=== PATIENT | female | born 1940 | race Caucasian/White ===

== ENCOUNTER 2023-04-24 21:16 | Emergency (ER) | payer BC, OTHER ==
[2023-04-24] MEDS ORDERED: LACTULOSE 20 GM/30 ML UCUP ONE (22:10)
[2023-04-24 22:13] LABS: Absolute Lymphocytes (CBC) 1.6 K/uL (0.7-4.9); Hematocrit 37.9 % (36.0-45.0); Lymphocytes % 19.6 % (15.3-44.8); MCV 98.5 fL (80-100); MPV 7.4 fL (7.6-11.3); Platelets 221 thou/uL (152-406); RBC Red Blood Cell Count 3.85 M/uL (3.86-4.86)
[2023-04-24 22:29] LABS: Albumin 3.3 g/dL (3.4-5.0); Bilirubin Total 0.5 mg/dL (0.2-1.0); Protein, Total 7.9 g/dL (6.4-8.2)
--- NOTE | 2023-04-25 00:31 | ER ---
Nurse's Notes [facility] Name: Kori Saenz Age: 83 yrs Sex: Female : 1940 Arrival Date: 04/24/2023 Time: 21:16 Bed 6 Private MD: Diagnosis: Constipation, unspecified;Diverticulitis of large intestine without perforation or abscess without bleeding;Solitary pulmonary nodule Presentation: 04/24 21:44 Chief complaint: Patient states: has been constipated, small stools since February , iw daughter states she took some ex-lax and it did not help. Coronavirus screen: At this time, the client does not indicate any symptoms associated with coronavirus-19. Ebola Screen: Patient negative for fever greater than or equal to 101.5 degrees Fahrenheit, and additional compatible Ebola Virus Disease symptoms Patient denies exposure to infectious person. Patient denies travel to an Ebola-affected area in the 21 days before illness onset. No symptoms or risks identified at this time. Initial Sepsis Screen: Does the patient meet any 2 criteria? No. Patient's initial sepsis screen is negative. Does the patient have a suspected source of infection? No. Patient's initial sepsis screen is negative. Risk Assessment: Do you want to hurt yourself or someone else? Patient reports no desire to harm self or others. 21:44 Acuity: DARION 3 iw 21:44 Method Of Arrival: Wheelchair iw Historical: - Allergies: 21:47 No Known Allergies; iw - Social history:: Smoking status: . Screenin:04 [facility] ED Fall Risk Assessment (Adult) History of falling in the last 3 months, lg3 including since admission No falls in past 3 months (0 pts). Abuse screen: Denies threats or abuse. Denies injuries from another. Nutritional screening: No deficits noted. Tuberculosis screening: No symptoms or risk factors identified. Assessment: 22:04 General: Appears in no apparent distress. comfortable, Behavior is calm, cooperative. lg3 Pain: Complains of pain in abdomen Pain currently is 1 out of 10 on a pain scale. Quality of pain is described as pressure. Neuro: No deficits noted. Nascimento Agitation-Sedation Scale (RASS): 0 - Alert and Calm Level of Consciousness is awake, alert, obeys commands, Oriented to person, place, time, situation. Cardiovascular: No deficits noted. Denies chest pain, shortness of breath, Capillary refill < 3 seconds Clubbing of nail beds is absent JVD is absent Patient's skin is warm and dry. Respiratory: No deficits noted. Airway is patent Respiratory effort is even, unlabored, Respiratory pattern is regular, symmetrical. GI: No deficits noted. Abdomen is flat, non-distended, Bowel sounds present X 4 quads. Abd is soft and non tender X 4 quads. Reports constipation. : No deficits noted. No signs and/or symptoms were reported regarding the genitourinary system. EENT: No deficits noted. No signs and/or symptoms were reported regarding the EENT system. Derm: No deficits noted. No signs and/or symptoms reported regarding the dermatologic system. Skin is intact, is healthy with good turgor, Skin is dry, Skin is normal, Skin temperature is warm. Musculoskeletal: No deficits noted. No signs and/or symptoms reported regarding the musculoskeletal system. Circulation, motion, and sensation intact. Range of motion: intact in all extremities. 22:53 Reassessment: Patient appears in no apparent distress at this time. No changes from lg3 previously documented assessment. Patient and/or family updated on plan of care and expected duration. Pain level reassessed. Patient is alert, oriented x 3, equal unlabored respirations, skin warm/dry/pink. pt currently in restroom. Vital Signs: 21:44 BP 140 / 66; Pulse 79; Resp 16; Temp 98.4; Pulse Ox 97% ; iw 22:54 BP 132 / 68; Pulse 81; Resp 17 S; Pulse Ox 98% on R/A; lg3 ED Course: 21:20 Patient arrived in ED. kj1 21:24 Freddy Jurado MD is Attending Physician. rt 21:45 Triage completed. iw 21:48 Arm band placed on. iw 21:55 Julissa Jane, DAVID is Primary Nurse. lg3 22:03 Magnesium Sent. lg3 22:03 CBC with Diff Sent. lg3 22:03 CMP Sent. lg3 22:03 Lipase Sent. lg3 22:04 Patient has correct armband on for positive identification. Placed in gown. Bed in low lg3 position. Call light in reach. Side rails up X 1. Client placed on continuous cardiac and pulse oximetry monitoring. NIBP monitoring applied. Door closed. Noise minimized. Warm blanket given. Family accompanied patient. 22:04 Patient maintains SpO2 saturation greater than 95% on room air. lg3 22:06 Inserted saline lock: 20 gauge in right antecubital area, using aseptic technique. bc6 Blood collected. 23:35 CT Abd/Pelvis - IV Contrast Only In Process Unspecified. EDMS 04/25 00:30 Raman Mcqueen MD is Referral Physician. rt 01:17 No provider procedures requiring assistance completed. km8 01:17 IV discontinued, intact, bleeding controlled, No redness/swelling at site. Pressure km8 dressing applied. 01:18 Provided Education on: d/c teaching. km8 Administered Medications: 04/24 22:03 Drug: Lactulose PO 30 grams 45 ml PO once Volume: 45 ml; Route: PO; lg3 04/25 01:17 Follow up: Response: No adverse reaction km8 Medication: 01:17 VIS not applicable for this client. km8 Outcome: 00:31 Discharge ordered by MD. rt 01:17 Discharged to home ambulatory, with family, km8 01:17 Condition: good 01:17 Discharge instructions given to patient, family, Instructed on discharge instructions, follow up and referral plans. medication usage, Demonstrated understanding of instructions, follow-up care, medications, Prescriptions given X 2, 01:18 Patient left the ED. km8 Signatures: Dispatcher [employer] EDMS Poly Lee, DAVID RN Mare Valero kj1 Julissa Jane RN RN lg3 Freddy Jurado MD MD rt Claire Dan bc6 Jessica Bolden RN RN km8 Corrections: (The following items were deleted from the chart) 04/24 21:45 21:44 Pulse 79bpm; Resp 16bpm; Pulse Ox 97%; Temp 98.4F; iw jewell
--- NOTE | 2023-04-25 00:31 | EDPHYS ---
Physician Documentation [facility] Name: Kori Saenz Age: 83 yrs Sex: Female : 1940 Arrival Date: 04/24/2023 Time: 21:16 Bed 6 Private MD: ED Physician Freddy Jurado HPI: 04/25 02:30 This 83 yrs old Female presents to ER via Wheelchair with complaints of Constipation. rt 02:30 Patient presents to the ED with constipation for the past several days. Reports mild rt abdominal discomfort. Patient recently moved here from [place]. Has been trying Ex-Lax and 1 stool softener per day to no relief. Denies other acute complaints at this time, symptoms are moderate in severity, no other aggravating alleviating factors.. Historical: - Allergies: 04/24 21:47 No Known Allergies; iw - Social history:: Smoking status: . ROS: 04/25 02:30 Constitutional: Negative for fever, chills, and weight loss, Cardiovascular: Negative rt for chest pain, palpitations, and edema, Respiratory: Negative for shortness of breath, cough, wheezing, and pleuritic chest pain, MS/Extremity: Negative for injury and deformity, Skin: Negative for injury, rash, and discoloration, Neuro: Negative for headache, weakness, numbness, tingling, and seizure, Psych: Negative for depression, anxiety, suicide ideation, homicidal ideation, and hallucinations, Abdomen/GI: Positive for abdominal pain, constipation, Negative for nausea and vomiting, Exam: 02:30 Constitutional: This is a well developed, well nourished patient who is awake, alert, rt and in no acute distress. Head/Face: Normocephalic, atraumatic. Chest/axilla: Normal chest wall appearance and motion. Nontender with no deformity. No lesions are appreciated. Cardiovascular: Regular rate and rhythm with a normal S1 and S2. No gallops, murmurs, or rubs. Normal PMI, no JVD. No pulse deficits. Respiratory: Lungs have equal breath sounds bilaterally, clear to auscultation and percussion. No rales, rhonchi or wheezes noted. No increased work of breathing, no retractions or nasal flaring. Skin: Warm, dry with normal turgor. Normal color with no rashes, no lesions, and no evidence of cellulitis. MS/ Extremity: Pulses equal, no cyanosis. Neurovascular intact. Full, normal range of motion. Neuro: Awake and alert, GCS 15, oriented to person, place, time, and situation. Cranial nerves II-XII grossly intact. Motor strength 5/5 in all extremities. Sensory grossly intact. Cerebellar exam normal. Normal gait. Psych: Awake, alert, with orientation to person, place and time. Behavior, mood, and affect are within normal limits. 02:30 Abdomen/GI: Mild tenderness diffusely without rebound, guarding, distention, Vital Signs: 04/24 21:44 BP 140 / 66; Pulse 79; Resp 16; Temp 98.4; Pulse Ox 97% ; iw 22:54 BP 132 / 68; Pulse 81; Resp 17 S; Pulse Ox 98% on R/A; lg3 MDM: 21:48 Patient medically screened. rt 04/25 02:30 Differential Diagnosis Bowel obstruction, constipation, electrolyte disturbance. Data rt reviewed: vital signs, nurses notes, lab test result(s), radiologic studies. Consideration of Admission/Observation Escalation of care including admission/observation considered. Patient is having a bowel movement after lactulose in the ED, has signs consistent with diverticulitis on imaging, however, there is no signs of complication such as SIRS criteria or abscess formation. Believe this is amenable to a trial of outpatient management she does not require admission at this time. I did inform the patient of findings of compression fracture, believe that this explains her current back pain for some time. This is not an acute finding. The patient was also informed of finding of pulmonary nodule, she states that she will follow-up with pulmonary for further evaluation as an outpatient.. I considered the following discharge prescriptions or medication management in the emergency department Medications were administered in the Emergency Department. See MAR. Independent interpretation of the following test(s) in the Emergency Department CT Scan: My interpretation is No bowel obstruction syndrome interpretation of CT scan images. Counseling: I had a detailed discussion with the patient and/or guardian regarding the historical points, exam findings, and any diagnostic results supporting the discharge/admit diagnosis, lab results, radiology results, the need for outpatient follow up, to return to the emergency department if symptoms worsen or persist or if there are any questions or concerns that arise at home. Response to treatment: the patient's symptoms have markedly improved after treatment. 04/24 21:49 Order name: CBC with Diff; Complete Time: 22:48 rt 04/24 21:49 Order name: CMP; Complete Time: 22:48 rt 04/24 21:49 Order name: Lipase; Complete Time: 22:48 rt 04/24 21:49 Order name: Magnesium; Complete Time: 22:48 rt 04/24 21:49 Order name: CT Abd/Pelvis - IV Contrast Only rt 04/24 21:49 Order name: IV Saline Lock; Complete Time: 22:03 rt 04/24 21:49 Order name: Labs collected and sent; Complete Time: 22:03 rt Administered Medications: 04/24 22:03 Drug: Lactulose PO 30 grams 45 ml PO once Volume: 45 ml; Route: PO; lg3 04/25 01:17 Follow up: Response: No adverse reaction km8 Disposition Summary: 04/25/23 00:31 Discharge Ordered Notes: Location: Home rt Problem: new rt Symptoms: have improved rt Condition: Stable rt Diagnosis - Constipation, unspecified rt - Diverticulitis of large intestine without perforation or abscess without bleeding rt - Solitary pulmonary nodule rt Followup: rt - With: Raman Mcqueen MD - When: 5 - 6 days - Reason: Discharge Instructions: - Discharge Summary Sheet rt - Constipation, Adult rt - Diverticulitis rt - Pulmonary Nodule rt Forms: - Medication Reconciliation Form rt - Thank You Letter rt - Antibiotic Education rt - Prescription Opioid Use rt - Patient Portal Instructions rt - Leadership Thank You Letter rt Signatures: Dispatcher [employer] Poly Ferrer, Julissa Colon RN, RN RN [email or web address] Freddy Jurado MD MD rt Jessica Bolden RN km8
[2023-04-25 01:39] VITALS: TEMP 98.4
[2023-04-25 01:45] VITALS: BP 132/68; O2SAT 98
--- NOTE | 2023-04-26 18:06 | RAD REPORT ---
EXAM DESCRIPTION: CT - Abdomen Pelvis W Contrast - 04/25/2023 6:28 am CLINICAL HISTORY: CONSTIPATION COMPARISON: None Available. TECHNIQUE: CT of the abdomen and pelvis performed following the administration of IV contrast. No or al contrast. This exam was performed according to our departmental dose-optimization program, which i ncludes automated exposure control, adjustment of the mA and/or kV according to patient size and/or u se of iterative reconstruction technique. FINDINGS: Lung Bases: Artifact from cardiac pacing lead. Basilar opacities, most pronounced in the r ight middle lobe, probably representing combination of atelectasis and scarring. There is a nodular o pacity in the left lower lobe measuring 0.9 cm. Abdomen: Liver: The liver has normal contour and density. No suspicious mass. Gallbladder: Cholelithiasis. No significant biliary dilatation. Spleen, Pancreas, and Adrenal Glands: The spleen, pancreas, and adrenal glands are unremarkable. Kidneys: Focal scarring in the interpolar right kidney. Cortical calcification just inferiorly. No suspicious mass identified. No obstructing calculus. No hydronephrosis. Vasculature: The aorta and IVC have normal caliber and position. No aortic dissection. IVC filter i s noted. Stomach: Tiny hiatal hernia. Other: No free intraperitoneal air. No free fluid or lymphadenopathy. Pelvis: Bladder: Underdistended. Bowel: No bowel obstruction. Colon diverticulosis. There is focal short segment wall thickening wit h mild adjacent fat stranding in the sigmoid colon, probably due to acute diverticulitis. Large amoun t of stool in the proximal colon. Appendix: Normal appendix. Pelvis: Status post hysterectomy. No adnexal mass. Bones: Compression fracture at T12 with nearly 90% vertebral body height loss at its midportion may b e chronic, however cannot exclude acute component. There is underlying sclerosis. No other suspicious bone lesion. IMPRESSION: 1. Findings compatible with acute diverticulitis of the sigmoid colon. Cannot exclude un derlying pathology. Recommend continued follow-up. There is large amount of stool in the proximal col on. 2. Compression fracture at T12 may be chronic, however acute component is not excluded. Correlate for any acute pain in this region. 3. Cholelithiasis. 4. Left lower lobe nodular opacity measuring 0.9 cm. Per Fleischner Society Guidelines, recommend p rompt non-contrast Chest CT for further evaluation. These guidelines do not apply to immunocompromised patients and patients with cancer. Follow up in pa tients with significant comorbidities as clinically warranted. For lung cancer screening, adhere to L lucy-RADS guidelines. Reference: Radiology. 2017; 284(1):228-43. Electronically signed by: Isa Hoffmann MD 04/24/2023 11:48 PM CDT Due to temporary technical issues with the PACS/Fluency reporting system, reports are being signed by the in house radiologists without review as a courtesy to insure prompt reporting. The interpreting radiologist is fully responsible for the content of the report.
== END 2023-04-25 01:18 | disposition home or self-care (01) ==
LOC: ER 21:16
DX: K59.00 Constipation, unspecified (principal); K57.32 Diverticulitis of large intestine without perforation or abscess without bleeding; R91.1 Solitary pulmonary nodule
CPT/HCPCS: 85025; 36415; 83735; 83690; 80053; 74177; 99284; Q9967

== ENCOUNTER → 2023-07-03 | Emergency (ER) | payer BC ==
[~2023-07-03] MED LIST: NA CHLORIDE 0.9% 250 ML ONE; NA CHLORIDE 0.9% 500 ML ONE; PANTOPRAZOLE 40 MG INJ ONE
--- NOTE | 2023-07-03 17:08 | RAD REPORT ---
EXAM DESCRIPTION: RAD - Chest Single View - 07/03/2023 5:04 pm CLINICAL HISTORY: COUGH Chest pain. COMPARISON: No comparisons FINDINGS: Portable technique limits examination quality. Mild to moderate bilateral pulmonary opacities may represent pneumonia or pulmonary edema. The heart is moderately enlarged. No displaced fractures.Dual lead pacer device. IMPRESSION: [id number] pneumonia versus CHF pattern.
[2023-07-03 18:02] LABS: SARS-CoV-2 Antigen Rapid Res Negative (Negative)
[2023-07-03 18:02] LABS: Absolute Lymphocytes (CBC) 1.7 K/uL (0.7-4.9); Hematocrit 25.4 % (36.0-45.0); Lymphocytes % 27.9 % (15.3-44.8); MCV 96.6 fL (80-100); MPV 7.9 fL (7.6-11.3); Platelets 251 thou/uL (152-406); RBC Red Blood Cell Count 2.63 M/uL (3.86-4.86)
[2023-07-03 18:18] LABS: Troponin High Sensitivity 23.5 pg/mL (<58.9)
[2023-07-03 18:19] LABS: Specific Gravity 1.025 (1.005-1.030); Urine Bacteria None Seen /HPF (<20); Urine Bilirubin NEGATIVE (Negative); Urine Blood Negative (Negative); Urine Clarity Clear (Clear); Urine Color Yellow (Yellow); Urine Glucose NEGATIVE (Negative); Urine Mucus Slight /HPF (None Seen); Urine Protein TRACE (Negative); Urine RBC <5 /HPF (None Seen); Urine Urobilinogen Normal (Normal); Urine pH 5.5 (5.0-7.0)
[2023-07-03 18:58] LABS: Albumin 2.7 g/dL (3.4-5.0); Bilirubin Total 0.4 mg/dL (0.2-1.0); Potassium 4.5 mEq/L (3.5-5.1); Protein, Total 6.4 g/dL (6.4-8.2)
--- NOTE | 2023-07-03 19:00 | ER ---
Nurse's Notes [facility] Name: Kori Saenz Age: 83 yrs Sex: Female : 1940 Arrival Date: 07/03/2023 Time: 16:21 Bed 14 Private MD: Diagnosis: GI Bleed/ Gastrointestinal hemorrhage, unspecified;Heart failure, unspecified Presentation: 07/03 16:37 Chief complaint: Patient states: sob, congestion, fatigue and black stool x 2 weeks. nv1 Coronavirus screen: Vaccine status: Patient reports receiving the 2nd dose of the covid vaccine. Ebola Screen: No symptoms or risks identified at this time. Onset of symptoms is unknown. 16:37 Method [facility] Arrival: [facility] [place] [place] 16:37 Acuity: DARION 3 nv1 21:31 Initial Sepsis Screen: Does the patient meet any 2 criteria? HR > 90 bpm. Does the nv1 patient have a suspected source of infection? No. Patient's initial sepsis screen is negative. Risk Assessment: Do you want to hurt yourself or someone else? Patient reports no desire to harm self or others. Triage Assessment: 16:40 General: Appears uncomfortable, ill, well groomed, well developed, well nourished, me1 Behavior is calm, cooperative, appropriate for age. Pain: Denies pain. Neuro: Level of Consciousness is awake, alert, obeys commands, Oriented to person, place, time, situation, Appropriate for age Reports weakness in generalized. Cardiovascular: Capillary refill < 3 seconds Patient's skin is warm and dry. Respiratory: Reports shortness of breath cough that is non-productive, Airway is patent Respiratory effort is even, unlabored, Respiratory pattern is regular, symmetrical. GI: Reports black stool. Historical: - Allergies: 16:40 No Known Allergies; me1 - PMHx: 16:40 Anemia; Diverticulitis; Chronic obstructive lung disease; me1 - Immunization history:: Adult Immunizations. - Social history:: Smoking status: Patient/guardian denies using tobacco, but has a distant history of tobacco abuse. Screenin:30 [facility] ED Fall Risk Assessment (Adult) History of falling in the last 3 months, me1 including since admission No falls in past 3 months (0 pts) Confusion or Disorientation No (0 pts) Intoxicated or Sedated No (0 pts) Impaired Gait Yes (1 pt) Mobility Assist Device Used Yes (1 pt) Altered Elimination No (0 pt) Score/Fall Risk Level 0 - 2 = Low Risk Maintained a safe environment, Provided non-skid footwear, Hourly rounding (assess needs \T\ fall precautionary measures) done, Used ambulatory aids as needed (educated on \T\ assisted with). Abuse screen: Denies threats or abuse. Nutritional screening: No deficits noted. Tuberculosis screening: No symptoms or risk factors identified. Assessment: 16:30 General: See triage assessment. . me1 Vital Signs: 16:30 BP 121 / 81; Pulse 112; Resp 20; Pulse Ox 95% on R/A; me1 16:37 BP 111 / 86; Pulse 98; Resp 18; Temp 98.4(O); Pulse Ox 98% on R/A; Weight 63.5 kg; me1 Height 5 ft. 6 in. ; 17:00 BP 112 / 72; Pulse 109; Resp 18; Pulse Ox 98% on R/A; me1 18:00 BP 120 / 59; Pulse 113; Resp 18; Pulse Ox 97% on R/A; me1 19:00 BP 132 / 90; Pulse 109; Resp 21; Pulse Ox 97% on R/A; me1 20:00 BP 132 / 77; Pulse 112; Resp 24; Pulse Ox 99% on R/A; me1 20:30 BP 138 / 89; Pulse 109; Resp 21; Pulse Ox 97% on R/A; me1 21:00 BP 130 / 93; Pulse 112; Resp 22; Pulse Ox 99% on R/A; me1 21:30 BP 123 / 84; Pulse 112; Resp 24; Pulse Ox 98% on R/A; me1 16:37 Body Mass Index 22.60 (63.50 kg, 167.64 cm) nv1 ED Course: 16:25 Patient arrived in ED. mg5 16:29 Micaela Parra, RN is Primary Nurse. me1 16:30 Patient has correct armband on for positive identification. Bed in low position. [facility] light in reach. Side rails up X 1. Provided Education on: POC. Verbalized understanding. . 16:30 No provider procedures requiring assistance completed. me1 16:33 Aubrey Ames MD is Attending Physician. ec2 16:40 Triage completed. me1 16:43 Arm band placed on Patient placed in waiting room. me1 17:05 XRAY Chest (1 view) In Process Unspecified. EDMS 17:14 COVID swab sent to lab. Flu and/or RSV swab sent to lab. mb4 17:14 Influenza Screen (a \T\ B) Sent. mb4 17:14 SARS RAPID Sent. mb4 17:46 CBC with Diff Sent. me1 17:46 NT PRO-BNP Sent. me1 17:46 Troponin HS Sent. me1 17:47 UAM Sent. me1 17:47 Inserted saline lock: 22 gauge in right antecubital area, using aseptic technique. me1 18:35 Urine Culture Sent. me1 18:35 CMP Sent. me1 19:06 Initiated transfer with Enio at [facility]. rv1 19:07 Attending Physician role handed off by Aubrey Ames MD rt 19:07 Freddy Jurado MD is Attending Physician. rt 20:[address] Land [address] [facility] Rm [id number]. rv1 20:31 Ptt, Activated Sent. me1 20:31 PT-INR Sent. me1 20:31 Lactate w/ 2H reflex if indic. Sent. me1 21:31 Patient transferred, IV remains in place. me1 Administered Medications: 19:01 Drug: Pantoprazole IVP 80 mg IVP once Route: IVP; Site: right antecubital; me1 19:02 Follow up: Response: No adverse reaction me1 19:01 Drug: Pantoprazole IV 8 mg/hr IV at 25 ml/hr continuous; (Standard dilution is 80 mg in me1 250 mL NS) Route: IV; Rate: 25 ml/hr; Site: right antecubital; 19:02 Follow up: Response: No adverse reaction me1 20:31 Drug: NS 0.9% IV 500 ml IV at bolus once Route: IV; Rate: bolus; Site: right me1 antecubital; 21:36 Follow up: IV Status: Completed infusion; IV Intake: 500ml me1 Medication: 16:30 VIS not applicable for this client. me1 Intake: 21:36 IV: 500ml; Total: 500ml. me1 Outcome: 19:00 ER care complete, transfer ordered by . ec2 21:31 Transferred by ground EMS to [facility], Transfer form completed. me1 Note: Report given to DAVID Pickens 21:31 Condition: stable 21:31 Instructed on the need for transfer, 22:04 Patient left the ED. me1 Signatures: Dispatcher [employer] Jenny Felipe mb4 Freddy Jurado MD MD rt Elly Bailey rv1 Micaela Parra RN RN me1 Miriam Woods mg5 Aubrey Ames MD MD ec2 Corrections: (The following items were deleted from the chart) 20:32 20:32 General: See triage assessment. . me1 me1
--- NOTE | 2023-07-03 19:00 | EDPHYS ---
Physician Documentation [facility] Name: Kori Saenz Age: 83 yrs Sex: Female : 1940 Arrival Date: 07/03/2023 Time: 16:21 Bed 14 Private MD: ED Physician Freddy Jurado HPI: 07/03 16:56 This 83 yrs old Female presents to ER via Ambulatory with complaints of ec2 Weakness, Cough, Breathing Difficulty. 16:56 Patient arrives today due to concern for cough and cold symptoms as well as generalized ec2 weakness. Patient reports that she has been having symptoms for several weeks, states she has been feeling generally weak and no longer wanted to get out of bed. Denies any fevers or chills, denies vomiting or diarrhea. Reports no abdominal pain. Reports no chest pain. Reports that she is also having some coughing which is causing her difficulty breathing. Reports history of COPD.. Historical: - Allergies: 16:40 No Known Allergies; me1 - PMHx: 16:40 Anemia; Diverticulitis; Chronic obstructive lung disease; me1 - Immunization history:: Adult Immunizations. - Social history:: Smoking status: Patient/guardian denies using tobacco, but has a distant history of tobacco abuse. ROS: 16:56 Constitutional: as per hpi ec2 Exam: 16:56 Constitutional: GEN: NAD Head: atraumatic Eyes: EOMI Ears: External ears are ec2 normal. CV: regular rate LUNGS: no respiratory distress, no wheezes, no rales, no rhonchi ABD: non-distended SKIN: no evidence of rashes MSK: no evidence of trauma NEURO: moves all extremities equally Vital Signs: 16:30 BP 121 / 81; Pulse 112; Resp 20; Pulse Ox 95% on R/A; me1 16:37 BP 111 / 86; Pulse 98; Resp 18; Temp 98.4(O); Pulse Ox 98% on R/A; Weight 63.5 kg; me1 Height 5 ft. 6 in. ; 17:00 BP 112 / 72; Pulse 109; Resp 18; Pulse Ox 98% on R/A; me1 18:00 BP 120 / 59; Pulse 113; Resp 18; Pulse Ox 97% on R/A; me1 19:00 BP 132 / 90; Pulse 109; Resp 21; Pulse Ox 97% on R/A; me1 20:00 BP 132 / 77; Pulse 112; Resp 24; Pulse Ox 99% on R/A; me1 20:30 BP 138 / 89; Pulse 109; Resp 21; Pulse Ox 97% on R/A; me1 21:00 BP 130 / 93; Pulse 112; Resp 22; Pulse Ox 99% on R/A; me1 21:30 BP 123 / 84; Pulse 112; Resp 24; Pulse Ox 98% on R/A; me1 16:37 Body Mass Index 22.60 (63.50 kg, 167.64 cm) ne1 MDM: 16:54 Patient medically screened. ec2 16:56 Data reviewed: vital signs. ED course: Patient arrives today due to concern for cough ec2 and cold symptoms. Examination remarkable for well-appearing nontoxic individual is otherwise in no acute distress. Will obtain lab work, EKG, chest x-ray as well as viral swabs. Considering viral infection, pneumonia, anemia, electrolyte disturbances, arrhythmia.. 18:21 ED course: EKG independently reviewed and interpreted by me, shows atrial fibrillation, ec2 rate 105, no acute ST segment elevations, nonconcerning intervals.. 18:32 ED course: CBC shows slight anemia with hemoglobin of 8.4, BNP elevation at 1500. Urine ec2 is questionably infectious however patient without overt urinary complaints or defer antibiotic therapy for this. Troponin is within normal ranges at 23.5. Chest x-ray shows bilateral patchy opacities as well as cardiomegaly, favor volume overload given the BNP as well as the history. Negative for flu and COVID. . 18:35 ED course: Hemoglobin is down 3 points from compared to previous visit. Further ec2 discussion with patient, patient has been having black stools. Will transfer to [facility].. 18:59 ED course: Digital rectal examination shows no gross melena, no hematochezia, multiple ec2 hemorrhoids present.. 20:14 Consideration of Admission/Observation Patient car transfer for higher level of care. rt Management of patient was discussed with the following: Hospitalist: Discussed with accepting hospitalist. I considered the following discharge prescriptions or medication management in the emergency department Medications were administered in the Emergency Department. See MAR. Counseling: I had a detailed discussion with the patient and/or guardian regarding the historical points, exam findings, and any diagnostic results supporting the discharge/admit diagnosis, lab results, the need to transfer to another facility. 07/03 16:55 Order name: CBC with Diff; Complete Time: 18:31 ec2 07/03 16:55 Order name: NT PRO-BNP; Complete Time: 18:31 ec2 07/03 16:55 Order name: Troponin HS; Complete Time: 18:31 ec2 07/03 16:55 Order name: SARS RAPID; Complete Time: 18:31 ec2 07/03 16:55 Order name: Influenza Screen (a \T\ B); Complete Time: 18:31 ec2 07/03 16:55 Order name: UAM; Complete Time: 18:31 ec2 07/03 18:23 Order name: Urine Culture EDMS 07/03 18:31 Order name: CMP; Complete Time: 18:58 ec2 07/03 19:57 Order name: Lactate w/ 2H reflex if indic. rt 07/03 19:58 Order name: PT-INR rt 07/03 19:58 Order name: Ptt, Activated rt 07/03 16:55 Order name: XRAY Chest (1 view); Complete Time: 18:31 ec2 07/03 16:55 Order name: EKG; Complete Time: 16:55 ec2 07/03 16:55 Order name: Cardiac monitoring; Complete Time: 19:40 ec2 07/03 16:55 Order name: EKG - Nurse/Tech; Complete Time: 19:40 ec2 07/03 16:55 Order name: IV Saline Lock; Complete Time: 17:46 ec2 07/03 16:55 Order name: Labs collected and sent; Complete Time: 17:46 ec2 07/03 16:55 Order name: O2 Per Protocol; Complete Time: 17:46 ec2 07/03 16:55 Order name: O2 Sat Monitoring; Complete Time: 17:46 ec2 Administered Medications: 19:01 Drug: Pantoprazole IVP 80 mg IVP once Route: IVP; Site: right antecubital; ne1 19:02 Follow up: Response: No adverse reaction me1 19:01 Drug: Pantoprazole IV 8 mg/hr IV at 25 ml/hr continuous; (Standard dilution is 80 mg in [facility] [place] mL NS) Route: IV; Rate: 25 ml/hr; Site: right antecubital; 19:02 Follow up: Response: No adverse reaction me1 20:31 Drug: NS 0.9% IV 500 ml IV at bolus once Route: IV; Rate: bolus; Site: right me1 antecubital; 21:36 Follow up: IV Status: Completed infusion; IV Intake: 500ml me1 Disposition Summary: 07/03/23 19:00 Transfer Ordered Notes: Transfer Location: Other Acute Care Facility ec2 Reason: Higher level of care ec2 Condition: Stable ec2 Problem: new ec2 Symptoms: are unchanged ec2 Accepting Physician: transferring doc(07/03/23 22:04) me1 Diagnosis - GI Bleed/ Gastrointestinal hemorrhage, unspecified ec2 - Heart failure, unspecified ec2 Forms: - Medication Reconciliation Form ec2 - SBAR form ec2 Signatures: Dispatcher [employer] Freddy Sousa MD MD rt Micaela Parra RN RN me1 Aubrey Ames MD MD ec2 Corrections: (The following items were deleted from the chart) 19:00 19:00 transferring doc ec2 ec2 22:04 19:00 transferring doc ec2 me1
[2023-07-03 20:50] LABS: Protime INR 1.24
[2023-07-04 01:28] VITALS: TEMP 98.4
[2023-07-04 01:38] VITALS: BP 123/84
[2023-07-04 01:39] VITALS: O2SAT 98
--- NOTE | 2023-07-05 12:25 | EKG ---
Test Date: 2023-07-03 Test Time: 18:15:37 Technical Project Manager: MARY MEASUREMENT RESULTS: Intervals: Rate: 105 DE: QRSD: 128 QT: 354 QTc: 467 [place]: P: DE: QRS: 10 T: 231 INTERPRETIVE STATEMENTS: Atrial fibrillation with rapid ventricular response with premature ventricular or aberrantly conducted complexes Nonspecific intraventricular block T wave abnormality, consider inferior ischemia Abnormal ECG No previous ECG available for comparison Electronically Signed On 07-05-23 12:20:34 [employer] ENGINE [employer]SEMBLER by Nahum Loera
== END ==
LOC: ER 16:21
DX: K92.2 Gastrointestinal hemorrhage, unspecified (principal); I50.9 Heart failure, unspecified; J44.9 Chronic obstructive pulmonary disease, unspecified; Z11.52 Encounter for screening for COVID-19
CPT/HCPCS: 36415; 71045; 80053; 81001; 83605; 83880; 84484; 85025; 85610; 85730; 87086; 87088; 87804; 87811; 93005; 96361; 96374; 99285; C9113; J7040; J7050

== ENCOUNTER 2023-09-02 12:59 | Inpatient (IN) | payer BC ==
[2023-09-02 13:30] LABS: Absolute Basophils 0.1 K/uL (0-0.5); Absolute Eosinophils 0.1 K/uL (0-0.5); Absolute Lymphocytes (CBC) 1.5 K/uL (0.7-4.9); Absolute Monocytes 0.7 K/uL (0.1-1.3); Absolute Neutrophil 4.1 K/uL (1.8-8.0); Basophils % 1.1 % (0-1.3); Eosinophils % 1.1 % (0-4.4); Hematocrit 28.7 % (36.0-45.0); Hemoglobin 9.4 g/dL (12.0-15.0); Lymphocytes % 22.8 % (15.3-44.8); MCH 30.6 pg (27.0-35.0); MCHC 32.6 g/dL (32.0-36.0); MCV 93.8 fL (80-100); MPV 9.5 fL (7.6-11.3); Monocytes % 10.7 % (3.3-12.3); Neutrophils % 64.3 % (41.7-73.7); Nucleated Red Blood Cells % 0.2 % (0-0); Platelets 172 thou/uL (152-406); RBC Red Blood Cell Count 3.06 M/uL (3.86-4.86); Red Cell Distribution Width 17.7 % (12.1-15.2)
[2023-09-02 13:47] LABS: Anion Gap 6.8 mEq/L (5.0-15.0); Magnesium 1.5 mg/dL (1.6-2.4); Potassium 3.8 mEq/L (3.5-5.1); Troponin High Sensitivity 39.3 pg/mL (<58.9)
--- NOTE | 2023-09-02 14:45 | RAD REPORT ---
[facility] CLINICAL HISTORY: shortness of breath COMPARISON: Chest Single View dated 08/29/2023; Chest Single View dated 07/03/2023 TECHNIQUE: Portable AP view of the chest. FINDINGS: Progressive central interstitial and fluffy airspace opacities. Retrocardiac opacity is al so progressive, and may reflect a component of effusion. . No pneumothorax. Stable blunting of the r ight costophrenic angle which may reflect pleural thickening or trace effusion. The cardiomediastinal contours are unremarkable. IMPRESSION: Progressive central interstitial and airspace fluffy opacities, may reflect pulmonary ed lobo or multifocal pneumonia.
[2023-09-02] MEDS ORDERED: FUROSEMIDE 40 MG/4 ML VIAL ONE (14:59)
[2023-09-02] MEDS ORDERED: METOPROLOL TARTRATE 5 MG/5 ML INJ IV ONE (15:00)
[2023-09-02] MEDS ORDERED: ACETAMINOPHEN 500 MG TAB ONE (15:27)
--- NOTE | 2023-09-02 15:37 | RAD REPORT ---
EXAM DESCRIPTION: CT - Chest For Pe Angio - 09/02/2023 2:34 pm CLINICAL HISTORY: shortness of breath; Hx of PE COMPARISON: Abdomen Pelvis W Contrast dated 04/24/2023 TECHNIQUE: Thin axial CT images of the chest were obtained following administration of 100 mL Isovue 370 IV contrast. Multiplanar reconstructions, and maximum intensity projection reconstructions were generated and reviewed. Exam utilizes a protocol for optimal evaluation of pulmonary arterial tree. All CT scans are performed using dose optimization technique as appropriate and may include automated exposure control or mA/KV adjustment according to patient size. FINDINGS: Main pulmonary artery is distended, approximately equal in caliber to the ascending thorac ic aorta. Prominent caliber of the right more than left pulmonary arteries as well. Distended IVC wit h contrast refluxed throughout the hepatic veins. No emboli or other suspicious finding. Mild fusiform dilation of the ascending thoracic aorta measuring 4.2 cm in caliber. [id number] cardiomegaly. Mild pericardial effusion. Mild central interstitial prominence. Dependent subsegmental atelectatic changes. Moderate bilateral layering pleural effusions. No pneumothorax. Left chest wall pacer/AICD in place. No abnormal mediastinal or hilar masses or lymphadenopathy seen. No chest wall mass or abnormal axill iary lymphadenopathy. Advanced superior endplate compression deformity at T12 with buckling of the posterior cortex, simil ar in appearance to the 04/24/2023 exam. IMPRESSION: No evidence of acute central pulmonary emboli. Prominent caliber of the main, and right more than left pulmonary arteries, with contrast reflux thro ugh the hepatic veins. Findings raise concern for portal hypertension, possibly with right heart dysf unction. 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 Mild central congestive changes and moderate bilateral layering pleural effusions.
--- NOTE | 2023-09-02 16:10 | EDPHYS ---
Physician Documentation [facility] Name: Kori Saenz Age: 83 yrs Sex: Female : 1940 Arrival Date: 09/02/2023 Time: 12:59 Bed 6 Private MD: ED Physician Marko Streeter HPI: 09/01 14:47 This 83 yrs old Female presents to ER via EMS with complaints of General Weakness. ms3 14:47 83-year-old female with past medical history of atrial fibrillation, anemia, COPD, CVA, ms3 dementia, diverticulitis, GERD, insomnia presents to the emergency department via [facility] for shortness of breath, lower extremity edema, cough that has become worse since Wednesday. Patient denies any alleviating or inciting factors. Patient denies pain at this time. Historical: - Allergies: 13:03 No Known Allergies; kc6 - PMHx: 13:03 a-fib; Anemia; Chronic obstructive lung disease; CVA; Dementia; Diverticulitis; GERD; kc6 insomnia; Migraines; - Immunization history:: Adult Immunizations up to date. - Social history:: Smoking status: Patient denies any tobacco usage or history of. ROS: 14:47 Constitutional: Negative for fever, and chills. Neck: Negative for injury, pain, and ms3 swelling, Cardiovascular: Negative for chest pain, and palpitations. 14:47 Abdomen/GI: Negative for abdominal pain, nausea, vomiting, diarrhea, and constipation, MS/Extremity: Negative for injury and deformity, Skin: Negative for injury, rash, and discoloration, 14:47 Respiratory: Positive for shortness of breath, Exam: 14:47 Constitutional: This is a well developed, well nourished patient who is awake, alert, ms3 and in no acute distress. Head/Face: Normocephalic, atraumatic. Neck: Trachea midline, no cervical lymphadenopathy. Supple, full range of motion without nuchal rigidity, or vertebral point tenderness. No Meningismus. Chest/axilla: Normal chest wall appearance and motion. Nontender with no deformity. Cardiovascular: Regular rate and rhythm with a normal S1 and S2. No gallops, murmurs, or rubs. Normal PMI, no JVD. No pulse deficits. Respiratory: Lungs have equal breath sounds bilaterally, clear to auscultation and percussion. No rales, rhonchi or wheezes noted. No increased work of breathing, no retractions or nasal flaring. Abdomen/GI: Soft, non-tender, with normal bowel sounds. No distension or tympany. No guarding or rebound. No evidence of tenderness throughout. Skin: Warm, dry with normal turgor. Normal color with no rashes, no lesions, and no evidence of cellulitis. 14:47 Musculoskeletal/extremity: Extremities: noted in the left and right lower extremity: swelling, 15:19 ECG was reviewed by the Attending Physician. ms3 Vital Signs: 13:01 BP 129 / 96; Pulse 115; Resp 16 S; Pulse Ox 98% on 4 lpm NC; Weight 73.48 kg (R); kc6 Height 5 ft. 6 in. (R); 13:47 BP 135 / 97; Pulse 128; Resp 18 S; Pulse Ox 98% on 4 lpm NC; kc6 14:51 BP 146 / 90; Pulse 122; Resp 16 S; Pulse Ox 98% on 4 lpm NC; kc6 15:15 BP 124 / 76; Pulse 110; kc6 15:20 BP 122 / 85; Pulse 134; kc6 15:25 BP 125 / 86; Pulse 117; kc6 17:56 BP 115 / 84; Pulse 116; Resp 16 S; Pulse Ox 99% on 2 lpm NC; kc6 19:42 BP 119 / 79; Pulse 116; Resp 18; Pulse Ox 99% ; jj7 13:01 Body Mass Index 26.15 (73.48 kg, 167.64 cm) kc6 MDM: 13:21 Patient medically screened. ms3 14:47 Differential Diagnosis CHF vs PNA vs COPD. ms3 15:19 Data reviewed: vital signs, nurses notes, lab test result(s), EKG, radiologic studies, ms3 and as a result, I will admit patient. Consideration of Admission/Observation Patient was admitted/placed on observation. 09/01 13:16 Order name: Basic Metabolic Panel; Complete Time: 14:02 ms3 09/01 13:16 Order name: CBC with Diff; Complete Time: 14:02 ms3 09/01 13:16 Order name: Magnesium; Complete Time: 14:02 ms3 09/01 13:16 Order name: Troponin HS; Complete Time: 14:02 ms3 09/01 14:02 Order name: NT PRO-BNP; Complete Time: 14:56 ms3 09/01 16:58 Order name: T4 Free EDMS 09/01 16:58 Order name: Thyroid Stimulating Hormone EDMS 09/01 16:58 Order name: Basic Metabolic Panel EDMS 09/01 16:58 Order name: Basic Metabolic Panel EDMS 09/01 16:58 Order name: CBC with Automated Diff EDMS 09/01 16:58 Order name: CBC with Automated Diff EDMS 09/01 16:58 Order name: Lipid Profile EDMS 09/01 16:58 Order name: Lipid Profile EDMS 09/01 16:58 Order name: Magnesium EDMS 09/01 16:58 Order name: Magnesium EDMS 09/01 16:58 Order name: Phosphorus EDMS 09/01 16:58 Order name: Phosphorus EDMS 09/01 16:58 Order name: Troponin High Sensitivity EDMS 09/01 16:58 Order name: Troponin High Sensitivity EDMS 09/01 16:58 Order name: Troponin High Sensitivity EDMS 09/01 13:16 Order name: XRAY Chest (1 view); Complete Time: 14:56 ms3 09/01 13:16 Order name: CT Chest For PE Angio; Complete Time: 15:41 ms3 09/01 13:16 Order name: EKG; Complete Time: 13:17 ms3 09/01 16:58 Order name: CONS Physician Consult EDMS 09/01 16:58 Order name: CONS Physician Consult EDMS 09/01 16:58 Order name: Physical Therapy Consult EDMS 09/01 13:16 Order name: Cardiac monitoring; Complete Time: 13:16 ms3 09/01 13:16 Order name: EKG - Nurse/Tech; Complete Time: 13:16 ms3 09/01 13:16 Order name: IV Saline Lock; Complete Time: 13:16 ms3 09/01 13:16 Order name: Labs collected and sent; Complete Time: 13:16 ms3 09/01 13:16 Order name: O2 Per Protocol; Complete Time: 13:16 ms3 09/01 13:16 Order name: O2 Sat Monitoring; Complete Time: 13:16 ms3 EC:19 Rate is 116 beats/min. Rhythm is irregularly irregular. QRS [place] is Normal. QRS ms3 interval is normal. Clinical impression: Atrial Fibrillation. Interpreted by me. Reviewed by me. Administered Medications: 15:15 Drug: Metoprolol IVP 5 mg IVP every 5 minutes; Hold for SBP < 100 or HR < 60. x3 Route: kc6 IVP; Site: right antecubital; 15:15 Drug: Furosemide IVP 40 mg IVP once; give over 2 minutes Route: IVP; Site: right kc6 antecubital; 15:54 Follow up: Response: No adverse reaction kc6 15:20 Drug: Metoprolol IVP 5 mg IVP every 5 minutes; Hold for SBP < 100 or HR < 60. x3 Route: kc6 IVP; Site: right antecubital; 15:25 Drug: Metoprolol IVP 5 mg IVP every 5 minutes; Hold for SBP < 100 or HR < 60. x3 Route: kc6 IVP; Site: right antecubital; 15:54 Follow up: Response: No adverse reaction; Blood pressure is lowered; Cardiac rhythm is kc6 unchanged 15:31 Drug: Acetaminophen PO 1000 mg PO once Route: PO; kc6 19:43 Follow up: Response: Pain is decreased jj7 Disposition Summary: 09/02/23 16:10 Hospitalization Ordered Notes: Hospitalization Status: Inpatient Admission ms3 Provider: Mehdi Valiente ms3 Condition: Stable ms3 Problem: new ms3 Symptoms: are unchanged ms3 Bed/Room Type: Standard ms3 Location: Telemetry/MedSurg (Inpatient)(09/02/23 18:41) dw Room Assignment: [facility](09/02/23 18:41) dw Diagnosis - Heart failure, unspecified ms3 - Shortness of breath ms3 Forms: - Medication Reconciliation Form ms3 - SBAR form ms3 - Leadership Thank You Letter ms3 Signatures: Dispatcher [employer] Kristie Mccurdy RN RN Marko Jha DO DO ms3 Trixie Pritchett RN RN kc6 Elsy Jesus RN RN [email or web address] Karlie Masterson RN [email or web address] Corrections: (The following items were deleted from the chart) 17:31 16:10 Telemetry/MedSurg (Inpatient) ms3 kb3 17:31 16:10 ms3 kb3 18:41 17:31 [facility] ER HOLD kb3 dw 18:41 17:31 ERHOLD- kb3 dw
--- NOTE | 2023-09-02 16:10 | ER ---
Nurse's Notes [facility] Name: Kori Saenz Age: 83 yrs Sex: Female : 1940 Arrival Date: 09/02/2023 Time: 12:59 Bed 6 Private MD: Diagnosis: Heart failure, unspecified;Shortness of breath Presentation: 09/01 13:01 Chief complaint: EMS states: pt is from [facility]. pt had a fall last week, was kc6 transferred to [facility] for possible PE and was recently d/c. pt now reports cough and feeling generally weak. pt actively dry heaving upon arrival. 4mg of IV zofran given en route. Coronavirus screen: At this time, the client does not indicate any symptoms associated with coronavirus-19. Ebola Screen: No symptoms or risks identified at this time. Initial Sepsis Screen: Does the patient meet any 2 criteria? HR > 90 bpm. Does the patient have a suspected source of infection? No. Patient's initial sepsis screen is negative. Risk Assessment: Do you want to hurt yourself or someone else? Patient reports no desire to harm self or others. Onset of symptoms was September 02, 2023. 13:01 Method Of Arrival: EMS: [facility] kc6 13:01 Acuity: DARION 3 kc6 Triage Assessment: 13:03 General: Appears in no apparent distress. uncomfortable, well groomed, well developed, kc6 Behavior is calm, cooperative, appropriate for age. EENT: No signs and/or symptoms were reported regarding the EENT system. Neuro: Level of Consciousness is awake, alert, obeys commands, Oriented to person, place, time, situation, Appropriate for age. Cardiovascular: Denies chest pain, Heart tones S1 S2 present Capillary refill < 3 seconds Rhythm is atrial fibrillation with rapid ventricular response. Respiratory: Reports shortness of breath cough that is Airway is patent Trachea midline Respiratory effort is even, unlabored, Respiratory pattern is regular, symmetrical. GI: Pt is actively vomiting Patient currently denies abdominal pain, diarrhea. : No signs and/or symptoms were reported regarding the genitourinary system. Derm: No signs and/or symptoms reported regarding the dermatologic system. Skin with poor turgor Skin is dry, Skin is pale, Skin temperature is warm Bruising that is yellow, on face, right eye and left eye. Musculoskeletal: No signs and/or symptoms reported regarding the musculoskeletal system. Circulation, motion, and sensation intact. Capillary refill < 3 seconds, Range of motion: intact in all extremities. Historical: - Allergies: 13:03 No Known Allergies; kc6 - PMHx: 13:03 a-fib; Anemia; Chronic obstructive lung disease; CVA; Dementia; Diverticulitis; GERD; kc6 insomnia; Migraines; - Immunization history:: Adult Immunizations up to date. - Social history:: Smoking status: Patient denies any tobacco usage or history of. Screenin:05 [facility] ED Fall Risk Assessment (Adult) History of falling in the last 3 months, kc6 including since admission Yes- fall prone (multiple falls) (3 pts) Confusion or Disorientation No (0 pts) Intoxicated or Sedated No (0 pts) Impaired Gait Yes (1 pt) Mobility Assist Device Used Yes (1 pt) Altered Elimination No (0 pt) Score/Fall Risk Level 3 or more points = High Risk. Abuse screen: Denies threats or abuse. Denies injuries from another. Nutritional screening: No deficits noted. Tuberculosis screening: No symptoms or risk factors identified. Assessment: 13:05 Reassessment: please see triage. kc6 14:05 Reassessment: Patient appears in no apparent distress at this time. No changes from kc6 previously documented assessment. Patient and/or family updated on plan of care and expected duration. Pain level reassessed. Patient is alert, oriented x 3, equal unlabored respirations, skin warm/dry/pink. 15:05 Reassessment: Patient appears in no apparent distress at this time. No changes from kc6 previously documented assessment. Patient and/or family updated on plan of care and expected duration. Pain level reassessed. Patient is alert, oriented x 3, equal unlabored respirations, skin warm/dry/pink. 16:05 Reassessment: Patient appears in no apparent distress at this time. No changes from kc6 previously documented assessment. Patient and/or family updated on plan of care and expected duration. Pain level reassessed. Patient is alert, oriented x 3, equal unlabored respirations, skin warm/dry/pink. 17:05 Reassessment: Patient appears in no apparent distress at this time. No changes from kc6 previously documented assessment. Patient and/or family updated on plan of care and expected duration. Pain level reassessed. Patient is alert, oriented x 3, equal unlabored respirations, skin warm/dry/pink. please see [facility] for further charting. Vital Signs: 13:01 BP 129 / 96; Pulse 115; Resp 16 S; Pulse Ox 98% on 4 lpm NC; Weight 73.48 kg (R); kc6 Height 5 ft. 6 in. (R); 13:47 BP 135 / 97; Pulse 128; Resp 18 S; Pulse Ox 98% on 4 lpm NC; kc6 14:51 BP 146 / 90; Pulse 122; Resp 16 S; Pulse Ox 98% on 4 lpm NC; kc6 15:15 BP 124 / 76; Pulse 110; kc6 15:20 BP 122 / 85; Pulse 134; kc6 15:25 BP 125 / 86; Pulse 117; kc6 17:56 BP 115 / 84; Pulse 116; Resp 16 S; Pulse Ox 99% on 2 lpm NC; kc6 19:42 BP 119 / 79; Pulse 116; Resp 18; Pulse Ox 99% ; jj7 13:01 Body Mass Index 26.15 (73.48 kg, 167.64 cm) kc6 Vitals: 13:13 Cardiac Rhythm Assessment Atrial fibrillation W/rapid ventricular response. 6 ED Course: 13:01 Patient arrived in ED. kc6 13:03 Triage completed. kc6 13:03 Arm band placed on. EKG completed in triage. Results shown to MD. kc6 13:05 Patient has correct armband on for positive identification. Placed in gown. Bed in low kc6 position. Call light in reach. Side rails up X2. Client placed on continuous cardiac and pulse oximetry monitoring. NIBP monitoring applied. playground monitor on. 13:05 Maintain EMS IV. Dressing intact. Good blood return noted. Site clean \T\ dry. Gauge \T\ vlad 6 site: 18G RAC. Oxygen administration via nasal cannula \T\ 4L/min. 13:06 Trixie Pritchett RN is Primary Nurse. kc6 13:06 Marko Streeter DO is Attending Physician. ms3 13:48 XRAY Chest (1 view) In Process Unspecified. EDMS 14:36 CT Chest For PE Angio In Process Unspecified. EDMS 16:08 Mehdi Valiente is Hospitalizing Provider. ms3 17:56 No provider procedures requiring assistance completed. Patient admitted, IV remains in kc6 place. Administered Medications: 15:15 Drug: Metoprolol IVP 5 mg IVP every 5 minutes; Hold for SBP < 100 or HR < 60. x3 Route: kc6 IVP; Site: right antecubital; 15:15 Drug: Furosemide IVP 40 mg IVP once; give over 2 minutes Route: IVP; Site: right kc6 antecubital; 15:54 Follow up: Response: No adverse reaction kc6 15:20 Drug: Metoprolol IVP 5 mg IVP every 5 minutes; Hold for SBP < 100 or HR < 60. x3 Route: kc6 IVP; Site: right antecubital; 15:25 Drug: Metoprolol IVP 5 mg IVP every 5 minutes; Hold for SBP < 100 or HR < 60. x3 Route: kc6 IVP; Site: right antecubital; 15:54 Follow up: Response: No adverse reaction; Blood pressure is lowered; Cardiac rhythm is kc6 unchanged 15:31 Drug: Acetaminophen PO 1000 mg PO once Route: PO; kc6 19:43 Follow up: Response: Pain is decreased jj7 Medication: 17:56 VIS not applicable for this client. kc6 Outcome: 16:10 Decision to Hospitalize by Provider. ms3 17:56 Admitted to ER Hold. Please see [facility] for further documentation. kc6 17:56 Condition: stable 17:56 Instructed on the need for admit, 19:41 Admitted to Med/surg accompanied by tech, room 418, Report called to MARGAUX beard7 19:41 Condition: stable 19:55 Patient left the ED. jj7 Signatures: Dispatcher [employer] EDMS Marko Streeter, DO ms3 Trixie Pritchett RN RN kc6 Karlie Masterson RN RN jj7 Corrections: (The following items were deleted from the chart) 17:56 17:05 Reassessment: Patient appears in no apparent distress at this time. No changes kc6 from previously documented assessment. Patient and/or family updated on plan of care and expected duration. Pain level reassessed. Patient is alert, oriented x 3, equal unlabored respirations, skin warm/dry/pink. kc6
--- NOTE | 2023-09-02 16:11 | P.HP ---
Certification for Inpatient Patient admitted to: Observation With expected LOS: >2 Midnights Practitioner: I am a practitioner with admitting privileges, knowledge of patient current condition, hospital course, and medical plan of care. Services: Services provided to patient in accordance with Admission requirements found in Title 42 Section 412.3 of the Code of Federal Regulations Patient History Date of Service: 09/02/23 Reason for admission: pulmonary Edema, heart failure History of Present Illness: Kori Saenz is an 83-year-old female with past medical history of a-fib; Anemia; Chronic obstructive lung disease (2 LNC home O2); CVA; Dementia; Diverticulitis; GERD; insomnia; Migraines who presents to the ED with complaints of shortness of breath, cough, lower extremity edema which has worsened since Wednesday. Daughter is at the bedside and is a good historian, she reports, Kori fell on Wednesday which required a visit to the ED and found a broken nose. Kori has not been the same since Wednesday. She is now with SOB and cough. Chest xray showing pulmonary edema or multifocal pneumonia. BNP elevated to 2440. On examination, she is uncomfortable, bruising to face from fall on Wednesday and breaking her nose, she is AAOx3. Initial vitals BP 129 / 96; Pulse 115; Resp 16 S; Pulse Ox 98% on 4 lpm NC. Laboratory evaluation significant for magnesium 1.5, BNP 2440, serum glucose 210, H&H 9/28.7, BUN/creatinine 23/1.09, GFR 50. CTA thorax reports " No evidence of acute central pulmonary emboli. Prominent caliber of the main, and right more than left pulmonary arteries, with contrast reflux through the hepatic veins. Findings raise concern for portal hypertension, possibly with right heart dysfunction. 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 Mild central congestive changes and moderate bilateral layering pleural effusions." Chest xray reports "Progressive central interstitial and airspace fluffy opaciti es, may reflect pulmonary edema or multifocal pneumonia." Kori will be admitted to hospitalist service for further evaluation and treatment of Acute hypoxic respiratory failure 2/2 COPD exacerbation and acute on chronic decompensated heart failure. - Past Medical/Surgical History -: Afib -: COPD -: Diverticulitis -: GERD -: migraines -: CVA -: Pacer -: Watchman - Family History Family History: Reviewed- Non-Contributory - Social History Smoking Status: Never smoker Alcohol use: No CD- Drugs: No Review of Systems General: Weakness, Other (fatigue) Respiratory: Cough, Shortness of Breath Gastrointestinal: Nausea, Vomiting Physical Examination - Physical Exam General: Alert, Oriented x3, Mild distress HEENT: Atraumatic, Normocephalic, PERRLA, Other (bruising to face) Neck: Supple, 2+ carotid pulse no bruit, JVD not distended Respiratory: Clear to auscultation bilaterally, Normal air movement Cardiovascular: Normal pulses, Regular rate/rhythm, Edema Capillary refill: <2 Seconds Gastrointestinal: Normal bowel sounds, Soft and benign, No tenderness Integumentary: Other (bruising to face) Neurological: Normal speech, Normal tone - Studies Laboratory Data (last 24 hrs) 09/02/23 09/02/23 13:19 13:19 WBC 6.40 Hgb 9.4 L Hct 28.7 L Plt Count 172 Sodium 139 Potassium 3.8 BUN 23 H Creatinine 1.09 H Glucose 210 H Magnesium 1.5 L Assessment and Plan - Plan Assessment and plan Acute on chronic decompensated heart failure Acute hypoxic respiratory failure 2/2 COPD exacerbation Hypomagnesemia BNP 2440, mag 1.5 Chest xray reports "Progressive central interstitial and airspace fluffy opacities, may reflect pulmonary edema or multifocal pneumonia." Lasix BID Pain meds, antipyretic Replace magnesium PRN Vit D pending oxygen supplementation, [address] Marques consulted, Dr. Loera consulted A-fib with RVR History of CVA Metoprolol for heart rate control Restart home Eliquis Continuous telemetry History of dementia History of diverticulitis History of GERD History of insomnia History of migraines History of anemia Restart home medications when available H&H 03/25.7-stable, monitor in a.m. 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
[2023-09-02] MEDS ORDERED: IPRATROPIUM BROM 0.5MG/2.5ML NEB PRN (16:49)
[2023-09-02] MEDS ORDERED: MORPHINE 2 MG/ML SYR IV PRN ×2 (16:57→21:52)
[2023-09-02] MEDS ORDERED: LEVALBUTEROL 0.63 MG/3 ML NEB NEB PRN (16:58)
[2023-09-02] MEDS ORDERED: HYDRALAZINE HCL 20 MG/ML VIAL IV PRN (16:58)
[2023-09-02 17:31] LABS: Thyroid Stimulating Hormone 1.32 uIU/mL (0.358-3.740)
[2023-09-02] MEDS ORDERED: ENOXAPARIN 40 MG/0.4 ML SQ ONE (17:59)
[2023-09-02] MEDS: ENOXAPARIN 40 MG/0.4 ML SQ SCH (18:00)
[2023-09-02] MEDS: MAGNESIUM SULFATE 1 gm IVPB 1 GM/100 ML BAG IV ONE (18:28)
[2023-09-02] MEDS ORDERED: SUMATRIPTAN SUCCI 50 MG TAB PO PRN (19:06)
[2023-09-02] MEDS ORDERED: TEMAZEPAM 15 MG CAP PO PRN (19:06)
[2023-09-02 19:44] VITALS: BMI 25.8
[2023-09-02] MEDS: FUROSEMIDE 40 MG/4 ML VIAL IV SCH (23:00)
[2023-09-03] MEDS: ZOLPIDEM TARTRATE 5 MG TABLET PO PRN (01:02)
[2023-09-03 02:59] LABS: Absolute Basophils 0.1 K/uL (0-0.5); Absolute Eosinophils 0.1 K/uL (0-0.5); Absolute Lymphocytes (CBC) 1.9 K/uL (0.7-4.9); Absolute Monocytes 0.8 K/uL (0.1-1.3); Absolute Neutrophil 3.1 K/uL (1.8-8.0); Basophils % 1.2 % (0-1.3); Eosinophils % 0.9 % (0-4.4); Hematocrit 28.2 % (36.0-45.0); Lymphocytes % 31.6 % (15.3-44.8); MCH 29.9 pg (27.0-35.0); MCHC 32.1 g/dL (32.0-36.0); MCV 93.4 fL (80-100); MPV 9.5 fL (7.6-11.3); Monocytes % 13.1 % (3.3-12.3); Neutrophils % 53.2 % (41.7-73.7); Nucleated Red Blood Cells % 0.2 % (0-0); Platelets 173 thou/uL (152-406); RBC Red Blood Cell Count 3.02 M/uL (3.86-4.86); Red Cell Distribution Width 17.8 % (12.1-15.2)
[2023-09-03 03:22] LABS: Anion Gap 9.3 mEq/L (5.0-15.0); Magnesium 1.5 mg/dL (1.6-2.4); Phosphorus 3.7 mg/dL (2.5-4.9); Potassium 3.3 mEq/L (3.5-5.1)
--- NOTE | 2023-09-03 08:46 | P.CNS ---
Date of Consult: 09/03/23 Reason for Consult: Respiratory distress pulmonary edema Chief Complaint: pulmonary Edema, heart failure History of Present Illness: Patient is 83 years of age was recently evaluated in my office pulm medical problems admitted to the hospital complaining of worsening dyspnea lower extremity edema he recently had a fall. With a diagnosis of heart failure doing better daughter at the bedside patient is feeling better eating and drinking alert responsive cooperative Allergies No Known Allergies Allergy (Unverified 09/02/23 19:26) - Past Medical/Surgical History -: Afib -: COPD -: Diverticulitis -: GERD -: migraines -: CVA -: Pacer -: Watchman - Social History Smoking Status: Former smoker Alcohol use: No CD- Drugs: No Review of Systems 10-point ROS is otherwise unremarkable General: Weakness Respiratory: Cough, Shortness of Breath Physical Examination Temp Pulse Resp BP Pulse Ox 97.6 F 105 H 16 162/86 H 98 09/03/23 04:00 09/03/23 04:00 09/03/23 04:00 09/03/23 04:00 09/03/23 04:00 General: Alert, Oriented x3 Respiratory: Crackles/rales, Expiratory wheezes Cardiovascular: Edema, Irregular heart rate/rhythm Laboratory Data (last 24 hrs) 09/02/23 09/02/23 13:19 13:19 WBC 6.40 Hgb 9.4 L Hct 28.7 L Plt Count 172 Sodium 139 Potassium 3.8 BUN 23 H Creatinine 1.09 H Glucose 210 H Magnesium 1.5 L - Problems (1) Congestive heart failure Current Visit: Yes Status: Acute Plan: Patient is 83 years of age admitted with worsening dyspnea I suspect that she has underlying pulmonary edema possibly pulmonary hypertension chest x-ray revi ewed cardiomegaly patient has a pacemaker most likely pulmonary edema agree with diuretics add spironolactone patient probably has underlying secondary pulmonary hypertension have also added an echocardiogram oxygenation vital signs satisfactory patient has underlying dementia daughter at the bedside Qualifiers: Heart failure chronicity: unspecified
[2023-09-03] MEDS: ARFORMOTEROL TARTRATE 15 MCG/2 ML VIAL.NEB NEB SCH (08:48)
[2023-09-03] MEDS ORDERED: BISACODYL E.C. 5 MG TAB PO PRN (08:50)
--- NOTE | 2023-09-03 08:53 | P.PN ---
Date of Service: 09/03/23 Subjective Awake in bed, c/o not "feeling well" breathing better today. ROS 10 point ROS as noted above, otherwise negative Physical Exam General: AAOx3, NAD HEENT: Atraumatic, Normocephalic, PERRLA, Other (bruising to face) Neck: Supple, 2+ carotid pulse no bruit, JVD not distended Respiratory: Audible wheezing, Normal air movement, symmetrical chest wall movement Cardiovascular: Normal pulses, RRR, Edema, no murmur noted Capillary refill: <2 Seconds Gastrointestinal: Normal bowel sounds, Soft and benign, No tenderness Integumentary: Other (bruising to face) Neurological: Normal speech, Normal tone Vitals Reviewed Problem list Acute on chronic decompensated heart failure Acute hypoxic respiratory failure 2/2 COPD exacerbation Hypomagnesemia A-fib with RVR History of CVA 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 Marques consulted bromatthew aldactone Electrolyte imbalance Mag 1.5 potassium 3.3 replace and monitor PRN A-fib with RVR History of CVA home cardizem daily and metoprolol prn continue home Eliquis Continuous telemetry History of dementia History of diverticulitis History of GERD History of insomnia History of migraines History of anemia continue home medications H&H 03/25.2-stable, monitor in a.m. 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
[2023-09-03] MEDS: FEXOFENADINE 180 MG TAB PO SCH (09:00)
[2023-09-03] MEDS: DILTIAZEM HCL 60 MG TAB PO SCH (09:00)
[2023-09-03] MEDS: POTASSIUM CL SA 10 MEQ TAB PO ONE (10:20)
[2023-09-03] MEDS: SPIRONOLACTONE 25 MG TABLET PO SCH (10:21)
[2023-09-03] MEDS: DULOXETINE 30 MG CAP PO SCH (10:21)
[2023-09-03] MEDS: Magnesium Sulfate 2gm IVPB 2 G/50 ML BAG IV ONE (10:21)
[2023-09-03] MEDS: APIXABAN 2.5 MG TABLET PO SCH (10:21)
[2023-09-03] MEDS: DILTIAZEM HCL 120 MG SR CAP PO SCH (15:48)
--- NOTE | 2023-09-03 16:26 | P.CNS ---
Date of Consult: 09/03/23 Chief Complaint: pulmonary Edema, heart failure History of Present Illness: patient with PMH of heart failure, COPD on home oxygen, AF s/p watchman presented with worsening SOB, YIN and bilateral lower extremity edema. Allergies No Known Allergies Allergy (Unverified 09/02/23 19:26) Home Medications: Albuterol Sulfate [Ventolin Hfa] 2 puff IH TID 09/03/23 Apixaban [Eliquis] 2.5 mg PO BID 09/03/23 Atorvastatin Calcium [Lipitor] 20 mg PO BEDTIME 09/03/23 Budesonide [Pulmicort] 0.25 mg IH BID 09/03/23 Docusate [Colace Cap] 100 mg PO DAILY 09/03/23 Donepezil HCl 10 mg PO DAILY 09/03/23 Duloxetine HCl [Cymbalta] 30 mg PO DAILY 09/03/23 Fexofenadine HCl 60 mg PO DAILY 09/03/23 Furosemide [Lasix] 40 mg PO DAILY 09/03/23 Ipratropium/Albuterol Sulfate [Iprat-Albut 0.5-3(2.5) mg/3 ml] 3 ml IH Q6H 09/03/23 Linaclotide [Linzess] 145 mcg PO BEDTIME 09/03/23 Metoprolol Succinate [Toprol Xl] 100 mg PO BID 09/03/23 Omeprazole [Prilosec] 40 mg PO DAILY 09/03/23 dilTIAZem HCL [Diltiazem 24Hr ER] 120 mg PO DAILY 09/03/23 - Past Medical/Surgical History -: Afib -: COPD -: Diverticulitis -: GERD -: migraines -: CVA -: Pacer -: Watchman - Social History Smoking Status: Former smoker Alcohol use: No CD- Drugs: No Review of Systems 10-point ROS is otherwise unremarkable Physical Examination Temp Pulse Resp BP Pulse Ox 97.3 F 125 H 16 140/79 100 09/03/23 08:00 09/03/23 08:00 09/03/23 08:00 09/03/23 08:00 09/03/23 08:00 General: Alert, Oriented x3 HEENT: Atraumatic Neck: Supple, JVD distended Respiratory: Crackles/rales Cardiovascular: Edema, Irregular heart rate/rhythm Gastrointestinal: Normal bowel sounds - Problems (1) Acute on chronic diastolic heart failure Current Visit: Yes Status: Acute Plan: Lasix 40 mg IV BID Monitor input and output continue Toprol XL Discontinue Diltazem (2) Atrial fibrillation Current Visit: Yes Status: Acute Plan: start patient on Sotalol 80 mg po BID and repeat EKG after each dose. Continue Eliquis for anticoagulation.
[2023-09-03] MEDS: METOPROLOL XL 100 MG TAB PO SCH (17:16)
[2023-09-03 18:06] LABS: Magnesium 1.8 mg/dL (1.6-2.4); Potassium 4.2 mEq/L (3.5-5.1)
[2023-09-03] MEDS: ATORVASTATIN 20 MG TAB PO SCH (21:49)
[2023-09-03] MEDS: DONEPEZIL HCL 5 MG TAB PO SCH (21:49)
[2023-09-04] MEDS: METOPROLOL TARTRATE 5 MG/5 ML INJ IV PRN (01:04)
[2023-09-04] MEDS: PANTOPRAZOLE 40MG TABLET PO SCH (06:43)
[2023-09-04] MEDS: FEXOFENADINE 60 MG PO SCH (09:00)
[2023-09-04] MEDS ORDERED: DILTIAZEM HCL 120 MG SR CAP PO SCH (09:00)
[2023-09-04] MEDS: SOTALOL HCL 80 MG TAB PO SCH (10:08)
--- NOTE | 2023-09-04 13:20 | P.PN ---
Date of Service: 09/04/23 Subjective Awake in bed, catheter in place for diuresis Daughter at bedside stating she doesn't look better. She is breathing clear on 2 LNC, no acute distress and afebrile. ROS 10 point ROS as noted above, otherwise negative Physical Exam General: AAOx3, NAD, calm and comfortable HEENT: Atraumatic, Normocephalic, PERRLA, Other (bruising to face) Neck: Supple, 2+ carotid pulse no bruit, JVD not distended Respiratory: bilaterally Clear breath sounds, Normal air movement, symmetrical chest wall movement, 2LNC Cardiovascular: Normal pulses, regular rate and rhythm, Edema, no murmur noted Capillary refill: <2 Seconds Gastrointestinal: Normal bowel sounds, Soft and benign, NT/ND Integumentary: Other (bruising to face) Neurological: Normal speech, Normal tone, calm Vitals Reviewed Problem list Acute on chronic decompensated heart failure Acute hypoxic respiratory failure 2/2 COPD exacerbation Hypomagnesemia A-fib with RVR History of CVA 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 Marques consulted brovana aldactone Debility/weakness Physical therapy consulted Likely need for SNF for rehab Electrolyte imbalance Mag 1.7 potassium 3.7 Sodium 133 replace and monitor PRN A-fib with RVR History of CVA Stopped cardizem and metoprolol prn per cardiology Started Sotalol BID per cardiology EKG BID continue home Eliquis Continuous telemetry History of dementia History of diverticulitis History of GERD History of insomnia History of migraines History of anemia continue home medications continue monitor H/h in a.m. 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
--- NOTE | 2023-09-04 14:11 | P.PN ---
Subjective Date of Service: 09/04/23 Chief Complaint: pulmonary Edema, heart failure Subjective: No new changes Review of Systems 10-point ROS is otherwise unremarkable Physical Examination - Vital Signs Temperature: 97.8 F Blood Pressure: 100/57 Pulse: 106 Respirations: 16 Pulse Ox (%): 99 - Physical Exam General: Alert HEENT: Atraumatic Neck: Supple Respiratory: Crackles/rales Cardiovascular: Edema, Irregular heart rate/rhythm Gastrointestinal: Normal bowel sounds Assessment And Plan - Current Problems (Diagnosis) (1) Acute on chronic diastolic heart failure Current Visit: Yes Status: Acute Plan: Lasix 40 mg IV BID Monitor input and output please lower Toprol XL to 100 mg daily only continue Spinolactone 25 mg daily (2) Atrial fibrillation Current Visit: Yes Status: Acute Plan: Sotalol 80 mg po BID and repeat EKG after each dose. Continue Eliquis for anticoagulation.
[2023-09-04 14:19] LABS: Anion Gap 7.7 mEq/L (5.0-15.0); Magnesium 1.7 mg/dL (1.6-2.4); Phosphorus 2.9 mg/dL (2.5-4.9); Potassium 3.7 mEq/L (3.5-5.1)
[2023-09-04] MEDS ORDERED: DILTIAZEM HCL 120 MG SR CAP PO ONE (15:37)
[2023-09-04] MEDS: MAGNESIUM SULFATE 1 gm IVPB 1 GM/100 ML BAG IV ONE (15:58)
[2023-09-04] MEDS: POTASSIUM CL SA 10 MEQ TAB PO ONE (15:58)
[2023-09-04 17:21] LABS: Absolute Basophils 0.1 K/uL (0-0.5); Absolute Eosinophils 0.2 K/uL (0-0.5); Absolute Lymphocytes (CBC) 1.3 K/uL (0.7-4.9); Absolute Monocytes 0.9 K/uL (0.1-1.3); Absolute Neutrophil 3.8 K/uL (1.8-8.0); Basophils % 1.1 % (0-1.3); Eosinophils % 2.5 % (0-4.4); Hemoglobin 9.9 g/dL (12.0-15.0); Lymphocytes % 20.6 % (15.3-44.8); MCH 30.1 pg (27.0-35.0); MCHC 31.8 g/dL (32.0-36.0); MCV 94.6 fL (80-100); MPV 9.6 fL (7.6-11.3); Neutrophils % 61.8 % (41.7-73.7); Nucleated Red Blood Cells % 0.3 % (0-0); Platelets 226 thou/uL (152-406); RBC Red Blood Cell Count 3.28 M/uL (3.86-4.86); Red Cell Distribution Width 18.5 % (12.1-15.2)
--- NOTE | 2023-09-05 07:41 | P.PN ---
Date of Service: 09/05/23 Subjective Sitting on the side of the bed this morning, eating breakfast independently No complaints this morning. Reports plans to move into her daughters house on September 24. ROS 10 point ROS as noted above, otherwise negative Physical Exam General: Alert and oriented x3, NAD, calm HEENT: Atraumatic, Normocephalic, PERRLA, Other (bruising to face) Neck: Supple, 2+ carotid pulse no bruit, JVD not distended Respiratory: bilaterally Clear breath sounds, symmetrical chest wall movement, 2LNC Cardiovascular: RRR, Edema, Afib, no murmur noted Capillary refill: <2 Seconds Gastrointestinal: Normal bowel sounds, Soft and benign on palpation, NT/ND Integumentary: Other (bruising to face) Neurological: Normal speech, Normal tone, calm Vitals Reviewed Problem list Acute on chronic decompensated heart failure Acute hypoxic respiratory failure 2/2 COPD exacerbation Hypomagnesemia A-fib with RVR History of CVA 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 Chapman consulted bromatthew aldactone Debility/weakness Physical therapy consulted Likely need for SNF for rehab Electrolyte imbalance Mag 1.7 potassium 4.0 Sodium 135 monitor and replace PRN A-fib with RVR History of CVA Stopped cardizem and metoprolol prn per cardiology Started Sotalol BID per cardiology- remains in Afib EKG BID continue home Eliquis Continuous telemetry History of dementia History of diverticulitis History of GERD History of insomnia History of migraines History of anemia continue home medications continue monitor H/h in a.m. 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 Plan of care discussed with Ms. Tai No new complaint. She remain in atrial fibrillation. She denies any shortness of breath. Continue sotalol and Eliquis Patient with significantly decreased mobility. Anticipating skilled rehab placement Social service consult for disposition. <ann marie james - Last Filed: 09/05/23 15:51>
[2023-09-05] MEDS: METOPROLOL XL 100 MG TAB PO SCH (10:21)
[2023-09-05 10:29] LABS: Absolute Basophils 0.1 K/uL (0-0.5); Absolute Eosinophils 0.2 K/uL (0-0.5); Absolute Lymphocytes (CBC) 1.6 K/uL (0.7-4.9); Absolute Monocytes 0.8 K/uL (0.1-1.3); Absolute Neutrophil 3.6 K/uL (1.8-8.0); Basophils % 0.8 % (0-1.3); Eosinophils % 2.7 % (0-4.4); Hematocrit 29.3 % (36.0-45.0); Hemoglobin 9.4 g/dL (12.0-15.0); Lymphocytes % 25.1 % (15.3-44.8); MCH 29.8 pg (27.0-35.0); MCV 93.2 fL (80-100); MPV 9.1 fL (7.6-11.3); Monocytes % 13.2 % (3.3-12.3); Neutrophils % 58.2 % (41.7-73.7); Nucleated Red Blood Cells % 0.2 % (0-0); Platelets 218 thou/uL (152-406); RBC Red Blood Cell Count 3.15 M/uL (3.86-4.86); Red Cell Distribution Width 17.9 % (12.1-15.2)
[2023-09-05 10:42] LABS: Magnesium 1.7 mg/dL (1.6-2.4); Phosphorus 2.3 mg/dL (2.5-4.9)
--- NOTE | 2023-09-05 13:48 | P.PN ---
Subjective Date of Service: 09/05/23 Chief Complaint: pulmonary Edema, heart failure Subjective: No new changes Review of Systems 10-point ROS is otherwise unremarkable Physical Examination - Vital Signs Temperature: 96.8 F Blood Pressure: 96/59 Pulse: 117 Respirations: 18 Pulse Ox (%): 99 - Physical Exam General: Alert, Oriented x3 HEENT: Atraumatic Neck: Supple Respiratory: Crackles/rales Cardiovascular: Edema, Irregular heart rate/rhythm Gastrointestinal: Normal bowel sounds Assessment And Plan - Current Problems (Diagnosis) (1) Acute on chronic diastolic heart failure Current Visit: Yes Status: Acute Plan: increase Lasix to 40 mg IV TID Monitor input and output Continue Toprol XL to 100 mg daily only continue Spinolactone 25 mg daily NPO after midnight for nuclear stress test in am (2) Atrial fibrillation Current Visit: Yes Status: Acute Plan: Sotalol 80 mg po BID and repeat EKG after each dose. Continue Eliquis for anticoagulation.
[2023-09-06 06:25] LABS: Absolute Eosinophils 0.2 K/uL (0-0.5); Absolute Lymphocytes (CBC) 1.2 K/uL (0.7-4.9); Absolute Monocytes 0.7 K/uL (0.1-1.3); Absolute Neutrophil 3.1 K/uL (1.8-8.0); Basophils % 0.8 % (0-1.3); Eosinophils % 3.1 % (0-4.4); Lymphocytes % 22.8 % (15.3-44.8); MCH 29.7 pg (27.0-35.0); MCV 92.6 fL (80-100); MPV 9.1 fL (7.6-11.3); Monocytes % 13.2 % (3.3-12.3); Neutrophils % 60.1 % (41.7-73.7); Nucleated Red Blood Cells % 0.1 % (0-0); Platelets 176 thou/uL (152-406); RBC Red Blood Cell Count 3.02 M/uL (3.86-4.86); Red Cell Distribution Width 18.2 % (12.1-15.2)
[2023-09-06 06:40] LABS: Albumin 2.6 g/dL (3.4-5.0)
--- NOTE | 2023-09-06 08:37 | ECHO ---
HEIGHT: 5 ft 6 in WEIGHT: 160 lb 0 oz DATE OF STUDY: 09/06/[address]: Raman Mcqueen MD 2-DIMENSIONAL: YES M.MODE: YES DOPPLER: YES COLOR FLOW: YES TDS: YES PORTABLE: YES DEFINITY: NO BUBBLE STUDY: NO DIAGNOSIS: CONGESTIVE HEART FAILURE CARDIAC HISTORY: CATHERIZATION: NO SURGERY: NO PROSTHETIC VALVE: NO PACEMAKER: NO MEASUREMENTS (cm) DIASTOLIC (NORMALS) SYSTOLIC (NORMALS) IVSd 1.4 (0.6-1.2) LA Diam 3.7 (1.9-4.0) LVEF 54% LVIDd 3.2 (3.5-5.7) LVIDs 2.3 (2.0-3.5) %FS 27% LVPWd 1.4 (0.6-1.2) Ao Diam 3.0 (2.0-3.7) 2 DIMENSIONAL ASSESSMENT: RIGHT ATRIUM: NORMAL LEFT ATRIUM: NORMAL RIGHT VENTRICLE: NORMAL LEFT VENTRICLE: SEVERE LEFT VENTRICULAR HYPERTROPHY TRICUSPID VALVE: MODERATE TRICUSPID REGURGITATION MITRAL VALVE: TRACE MITRAL REGURGITATION PULMONIC VALVE: TRACE PULMONIC REGURGITATION AORTIC VALVE: MILD AORTIC REGURGITATION PERICARDIAL EFFUSION: NONE AORTIC ROOT: NORMAL LEFT VENTRICULAR WALL MOTION: UNABLE TO ACCURATELY ACCESS DUE TO POOR WINDOWS. DOPPLER/COLOR FLOW: DIASTOLIC DYSFUNCTION. COMMENTS: 1. LOW NORMAL LEFT VENTRICULAR SYSTOLIC FUNCTION. LEFT VENTRICULAR EJECTION FRACTION 50%. MILD GLOBAL HYPOKINESIS. 2. DIASTOLIC DYSFUNCTION. 3. ELEVATED FILLING PRESSURE. DILATED INFERIOR VENA CAVA. RIGHT VENTRICULAR SYSTOLIC PRESSURE 60-65 mmHg. TECHNOLOGIST: FATEMEH LUCERO
--- NOTE | 2023-09-06 10:21 | P.PN ---
Date of Service: 09/06/23 Subjective Sleeping this morning. Easily arouses NAD, clear breath sounds, no wheezing or distress noted Nuclear stress test in the AM ROS 10 point ROS as noted above, otherwise negative Physical Exam General: AAO x3, NAD HEENT: Atraumatic, Normocephalic, PERRLA, Other (bruising to face) Neck: Supple, 2+ carotid pulse no bruit, JVD not distended Respiratory: bilaterally Clear breath sounds, symmetrical chest wall movement, 2LNC Cardiovascular: Afib, no murmur noted Capillary refill: <2 Seconds Gastrointestinal: bowel sounds present, Soft and benign on palpation, NT/ND Integumentary: Other (bruising to face) Neurological: Normal speech, Normal tone, calm Vitals Reviewed Problem list Acute on chronic decompensated heart failure Acute hypoxic respiratory failure 2/2 COPD exacerbation Hypomagnesemia A-fib with RVR History of CVA 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 Chapman consulted cristobal Spaulding recommend Nuclear stress test in the AM Hyperglycemic A1C 7.2 accucheck with SSI ACHS Debility/weakness Physical therapy consulted Likely need for SNF for rehab Electrolyte imbalance- resolved Mag 1.7 potassium 4.0 Sodium 135 monitor and replace PRN A-fib with RVR History of CVA Stopped cardizem and metoprolol prn per cardiology Started Sotalol BID per cardiology- remains in Afib HR 117-126 EKG BID continue home Eliquis Continuous telemetry History of dementia History of diverticulitis History of GERD History of insomnia History of migraines History of anemia continue home medications continue monitor H/h in a.m. 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
[2023-09-06] MEDS ORDERED: D50W 25 GM/50 ML SYRINGE IV PRN (13:06)
[2023-09-06] MEDS ORDERED: GLUCAGON 1 MG/VIAL IM PRN (13:06)
[2023-09-06] MEDS ORDERED: D10W 125 ML IV PRN (13:11)
[2023-09-06] MEDS: FUROSEMIDE 40 MG/4 ML VIAL IV SCH (14:00)
[2023-09-06] MEDS: INSULIN REGULAR (HUMAN) 100 UNIT/ML SQ SCH (16:30)
[2023-09-06] MEDS: HYDROCODONE/APAP 5/325 MG TAB PO PRN (20:41)
[2023-09-06] MEDS: FUROSEMIDE 40 MG TABLET PO SCH (20:41)
[2023-09-07 07:44] LABS: Absolute Eosinophils 0.2 K/uL (0-0.5); Absolute Lymphocytes (CBC) 1.3 K/uL (0.7-4.9); Absolute Monocytes 0.6 K/uL (0.1-1.3); Absolute Neutrophil 2.6 K/uL (1.8-8.0); Hematocrit 29.9 % (36.0-45.0); Hemoglobin 9.6 g/dL (12.0-15.0); Lymphocytes % 27.4 % (15.3-44.8); MCH 29.9 pg (27.0-35.0); MCV 93.6 fL (80-100); MPV 9.2 fL (7.6-11.3); Monocytes % 12.7 % (3.3-12.3); Neutrophils % 53.9 % (41.7-73.7); Nucleated Red Blood Cells % 0.1 % (0-0); Platelets 203 thou/uL (152-406); RBC Red Blood Cell Count 3.19 M/uL (3.86-4.86); Red Cell Distribution Width 18.1 % (12.1-15.2)
[2023-09-07 08:10] LABS: Albumin 2.6 g/dL (3.4-5.0); Phosphorus 2.6 mg/dL (2.5-4.9)
[2023-09-07] MEDS: ONDANSETRON 4 MG/2 ML VIAL IV PRN (08:52)
--- NOTE | 2023-09-07 13:02 | P.PN ---
Date of Service: 09/07/23 Subjective nauseous this morning, unable to tolerate stress test Also C/O constipation reports no BM in one week Alert, oriented, pleasant ROS 10 point ROS as noted above, otherwise negative Physical Exam General: AAO x3, NAD HEENT: Atraumatic, Normocephalic, PERRLA, Neck: Supple,, JVD not distended Respiratory: bilaterally Clear breath sounds, symmetrical chest wall movement, 2LNC Cardiovascular: Afib, no murmur noted Capillary refill: <2 Seconds Gastrointestinal: bowel sounds present, Soft and benign on palpation, NT/ND Integumentary: Other (bruising to face) Neurological: Normal speech, Normal tone, calm Vitals Reviewed Problem list Acute on chronic diastolic congestive heart failure Acute on chronic hypoxic respiratory failure secondary to COPD with exacerbation A-fib with RVR History of CVA 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 Debility/weakness Assessment and Plan Acute on chronic diastolic congestive heart failure Acute on chronic hypoxic respiratory failure secondary to COPD with exacerbation Continue diuresis Cardiology following Echocardiogram performed with low normal ejection fraction/elevated right ventricular pressures Plan was for stress test today but patient was unable to tolerate with nausea Continue diuresis Hyperglycemic A1C 7.2 accucheck with SSI ACHS Debility/weakness Physical therapy consulted Likely need for SNF for rehab Constipation MiraLAX x 1 Repeat dosing as needed Clear liquid diet for today given nausea Electrolyte imbalance- resolved Mag 1.7 potassium 4.0 Sodium 135 monitor and replace PRN A-fib with RVR History of CVA Stopped cardizem Started Sotalol BID per cardiology-monitoring QTc Metoprolol resumed per cardiology continue home Eliquis Continuous telemetry History of dementia History of diverticulitis History of GERD History of insomnia History of migraines History of anemia continue home medications continue monitor H/h in a.m. 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
[2023-09-07] MEDS: POLYETHYL GLY 3350 17 GM/DOSE PO ONE (14:18)
[2023-09-08 07:12] LABS: Absolute Basophils 0.1 K/uL (0-0.5); Absolute Eosinophils 0.2 K/uL (0-0.5); Absolute Lymphocytes (CBC) 1.6 K/uL (0.7-4.9); Absolute Monocytes 0.9 K/uL (0.1-1.3); Basophils % 1.2 % (0-1.3); Eosinophils % 4.3 % (0-4.4); Hematocrit 32.3 % (36.0-45.0); Hemoglobin 10.2 g/dL (12.0-15.0); Lymphocytes % 27.7 % (15.3-44.8); MCH 29.4 pg (27.0-35.0); MCHC 31.5 g/dL (32.0-36.0); MCV 93.2 fL (80-100); MPV 9.6 fL (7.6-11.3); Monocytes % 14.8 % (3.3-12.3); Nucleated Red Blood Cells % 0.1 % (0-0); Platelets 228 thou/uL (152-406); RBC Red Blood Cell Count 3.47 M/uL (3.86-4.86); Red Cell Distribution Width 18.1 % (12.1-15.2)
[2023-09-08 07:22] LABS: Albumin 2.7 g/dL (3.4-5.0); Anion Gap 6.9 mEq/L (5.0-15.0); Phosphorus 2.9 mg/dL (2.5-4.9); Potassium 3.9 mEq/L (3.5-5.1)
[2023-09-08] MEDS: POTASSIUM 25 MEQ EFFERV TAB PO ONE ×2 (07:46→13:14)
[2023-09-08] MEDS: NA CHLORIDE 0.9% 500 ML ONE (09:52)
[2023-09-08] MEDS ORDERED: propofoL 200 MG/20 ML VIAL IV ONE (10:24)
[2023-09-08] MEDS ORDERED: LIDOCAINE 1% MPF 5 ML VIAL ONE (10:24)
--- NOTE | 2023-09-08 11:51 | P.PN ---
Date of Service: 09/08/23 Subjective Was able to have bowel movement yesterday Scheduled for RAEGAN cardioversion today ROS 10 point ROS as noted above, otherwise negative Physical Exam General: AAO x3, NAD HEENT: Atraumatic, Normocephalic, PERRLA, Neck: Supple,, JVD not distended Respiratory: bilaterally Clear breath sounds, symmetrical chest wall movement, 2LNC Cardiovascular: Afib, no murmur noted Capillary refill: <2 Seconds Gastrointestinal: bowel sounds present, Soft and benign on palpation, NT/ND Integumentary: Other (bruising to face) Neurological: Normal speech, Normal tone, calm Vitals Reviewed Problem list Acute on chronic diastolic congestive heart failure Acute on chronic hypoxic respiratory failure secondary to COPD with exacerbation Encephalopathy versus delirium A-fib with RVR History of CVA 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 Debility/weakness Assessment and Plan Acute on chronic diastolic congestive heart failure Acute on chronic hypoxic respiratory failure secondary to COPD with exacerbation Continue diuresis Cardiology following Echocardiogram performed with low normal ejection fraction/elevated right ventricular pressures Plan was for stress test today but patient was unable to tolerate with nausea Continue diuresis RAEGAN cardioversion performed 09/07 initially successful with 200 J now in sinus rhythm Was on Eliquis prior to cardioversion-continue Encephalopathy versus delirium Patient more confused than baseline per daughter currently Daughter reports she gets this way when she is sick Will obtain UA, chest x-ray Additionally bicarb is elevated possibly contraction alkalosis Will also review medications patient is taking Hyperglycemic A1C 7.2 accucheck with SSI ACHS Debility/weakness Physical therapy consulted Likely need for SNF for rehab Constipation MiraLAX x 1 Repeat dosing as needed Diet advanced, will obtain KUB Electrolyte imbalance- resolved Mag 1.7 potassium 4.0 Sodium 135 monitor and replace PRN A-fib with RVR History of CVA Stopped cardizem Started Sotalol BID per cardiology-monitoring QTc Metoprolol resumed per cardiology continue home Eliquis Continuous telemetry History of dementia History of diverticulitis History of GERD History of insomnia History of migraines History of anemia continue home medications continue monitor H/h in a.m. 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
--- NOTE | 2023-09-08 12:17 | RAD REPORT ---
EXAM DESCRIPTION: RAD - Abdomen 1 View (KUB) - 09/08/2023 12:06 pm CLINICAL HISTORY: nausea, confusion, constipation Pain COMPARISON: No comparisons FINDINGS: The bowel gas pattern is non-obstructive. No evidence of free air or pneumatosis. No suspi cious calcifications. Moderate fecal retention throughout the colon, particularly the right colon. IVC filter noted. 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 IMPRESSION: Moderate constipation suspected, particularly the right colon.
--- NOTE | 2023-09-08 12:17 | RAD REPORT ---
EXAM DESCRIPTION: RAD - Chest Single View - 09/08/2023 12:06 pm CLINICAL HISTORY: Dyspnea, confusion Chest pain. COMPARISON: Chest Single View dated 09/02/2023; Chest Single View dated 08/29/2023; Chest Single View da safia 07/03/2023; Chest For Pe Angio dated 09/02/2023 FINDINGS: Portable technique limits examination quality. Diffuse emphysema is present. Small right and moderate left pleural effusion. Moderate cardiomegaly w ith pacer device in place. No displaced fractures.Diffuse osteopenia.
--- NOTE | 2023-09-08 13:50 | P.PN ---
Subjective Date of Service: 09/08/23 Chief Complaint: pulmonary Edema, heart failure Subjective: No new changes Review of Systems 10-point ROS is otherwise unremarkable Physical Examination - Vital Signs Temperature: 97.6 F Blood Pressure: 107/56 Pulse: 68 Respirations: 68 Pulse Ox (%): 92 - Physical Exam General: Alert, Oriented x1 HEENT: Atraumatic Neck: Supple, JVD not distended Respiratory: Crackles/rales Cardiovascular: No edema, Normal S1 S2, Edema Gastrointestinal: Normal bowel sounds Assessment And Plan - Current Problems (Diagnosis) (1) Acute on chronic diastolic heart failure Current Visit: Yes Status: Acute Plan: lower Lasix to 40 mg PO BID Monitor input and output lower Toprol XL to 50 mg daily only continue Spinolactone 25 mg daily Nuclear stress test as outpatient (2) Atrial fibrillation Current Visit: Yes Status: Acute Plan: Patient is s/t RAEGAN DCCV. Continue Sotalol 80 mg po BID. Continue Eliquis for anticoagulation.
[2023-09-08] MEDS ORDERED: TEMAZEPAM 15 MG CAP PO PRN (17:18)
[2023-09-08] MEDS: LORazepam 2 MG/ML VIAL IV ONE (18:24)
[2023-09-09] MEDS: ACETAMINOPHEN 500 MG TAB PO PRN (02:36)
[2023-09-09 07:21] LABS: Absolute Eosinophils 0.2 K/uL (0-0.5); Absolute Lymphocytes (CBC) 1.4 K/uL (0.7-4.9); Absolute Monocytes 0.7 K/uL (0.1-1.3); Absolute Neutrophil 2.2 K/uL (1.8-8.0); Basophils % 0.9 % (0-1.3); Eosinophils % 4.4 % (0-4.4); Hematocrit 30.3 % (36.0-45.0); Hemoglobin 9.7 g/dL (12.0-15.0); Lymphocytes % 30.8 % (15.3-44.8); MCH 29.6 pg (27.0-35.0); MCV 92.6 fL (80-100); Monocytes % 16.2 % (3.3-12.3); Neutrophils % 47.7 % (41.7-73.7); Nucleated Red Blood Cells % 0.3 % (0-0); Platelets 253 thou/uL (152-406); RBC Red Blood Cell Count 3.27 M/uL (3.86-4.86)
[2023-09-09 07:35] LABS: Albumin 2.6 g/dL (3.4-5.0)
--- NOTE | 2023-09-09 07:59 | TEE ---
TRANSESOPHAGEAL ECHOCARDIOGRAM REPORT CARDIOLOGY DEPARTMENT DATE OF STUDY: 09/08/2023 HEIGHT: 5'6" WEIGHT: 148 lbs DIAGNOSIS: ATRIAL FIBRILLATION, CARDIOVERSION CASEWORKER COMMENTS: RAEGAN CARDIAC HISTORY: CATHERIZATION: SURGERY: PROSTHETIC VALVE: PACEMAKER: 2 DIMENSIONAL ASSESSMENT: RIGHT ATRIUM: NORMAL LEFT ATRIUM: SEVERE DILATED RIGHT VENTRICLE: NORMAL LEFT VENTRICLE: NOT ACCESSED TRICUSPID VALVE: MODERATE TRICUSPID REGURGITATION MITRAL VALVE: MILD MITRAL REGURGITATION PULMONIC VALVE: NORMAL AORTIC VALVE: NORMAL PERICARDIAL EFFUSION: NONE AORTIC ROOT: EJECTION FRACTION: LEFT VENTRICULAR WALL MOTION: NOT ACCESSED DOPPLER/COLOR FLOW: NOT ACCESSED COMMENTS: 1. NORMAL LEFT ATRIAL APPENDAGE CLOSURE DEVICE (WATCHMAN) IN PLACE, NO THROMBUS, NO LEAK. TECHNOLOGIST: LYUBOV WILLARD
[2023-09-09] MEDS: FUROSEMIDE 40 MG TABLET PO SCH (09:00)
[2023-09-09] MEDS: METOPROLOL XL 50 MG TAB PO SCH (10:03)
[2023-09-09] MEDS: DOCUSATE NA 100 MG CAP PO SCH (10:04)
[2023-09-09 12:48] LABS: Specific Gravity 1.022 (1.005-1.030); Sqamous Epithelial <5 /HPF (None Seen); Urine Bacteria None Seen /HPF (<20); Urine Bilirubin NEGATIVE (Negative); Urine Blood Negative (Negative); Urine Clarity Turbid (Clear); Urine Color Yellow (Yellow); Urine Culture Reflex Order NOT NEEDED; Urine Glucose 4+ (Negative); Urine Ketones NEGATIVE (Negative); Urine Micro Reflex YN NO BILL MICROSCOPIC; Urine Nitrite NEGATIVE (Negative); Urine Protein TRACE (Negative); Urine RBC <5 /HPF (None Seen); Urine Urobilinogen 3+ (Normal); Urine WBC <5 /HPF (<5)
--- NOTE | 2023-09-09 13:02 | P.PN ---
Subjective Date of Service: 09/09/23 Chief Complaint: pulmonary Edema, heart failure Subjective: No new changes Review of Systems 10-point ROS is otherwise unremarkable Physical Examination - Vital Signs Temperature: 97.7 F Blood Pressure: 95/48 Pulse: 73 Respirations: 16 Pulse Ox (%): 100 - Physical Exam General: Alert, Oriented x3 HEENT: Atraumatic Neck: Supple Respiratory: Clear to auscultation bilaterally Cardiovascular: No edema, Normal S1 S2 Gastrointestinal: Normal bowel sounds Assessment And Plan - Current Problems (Diagnosis) (1) Acute on chronic diastolic heart failure Current Visit: Yes Status: Acute Plan: lower Lasix to 40 mg PO BID Monitor input and output Continue Toprol XL 50 mg daily continue Spinolactone 25 mg daily Nuclear stress test as outpatient (2) Atrial fibrillation Current Visit: Yes Status: Acute Plan: Patient is s/p RAEGAN DCCV. Continue Sotalol 80 mg po BID. Continue Toprol XL 50 mg daily Continue Eliquis for anticoagulation (patient got watchman) but she is on Eliquis for history of PE..
--- NOTE | 2023-09-09 13:51 | P.PN ---
Date of Service: 09/09/23 Subjective Mental status improving Currently paced rhythm ROS 10 point ROS as noted above, otherwise negative Physical Exam General: AAO x2-3, NAD HEENT: Atraumatic, Normocephalic, PERRLA, Neck: Supple,, JVD not distended Respiratory: bilaterally Clear breath sounds, symmetrical chest wall movement, 2LNC Cardiovascular: Paced, no murmur noted Capillary refill: <2 Seconds Gastrointestinal: bowel sounds present, Soft and benign on palpation, NT/ND Integumentary: Other (bruising to face) Neurological: Normal speech, Normal tone, calm Vitals Reviewed Problem list Acute on chronic diastolic congestive heart failure Acute on chronic hypoxic respiratory failure secondary to COPD with exacerbation Encephalopathy versus delirium Atrial fibrillation S/P watchman procedure and RAEGAN cardioversion 09/07 now in NSR Recent history of PE History of GI bleed History of CVA 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 Debility/weakness Constipation Assessment and Plan Acute on chronic diastolic congestive heart failure Acute on chronic hypoxic respiratory failure secondary to COPD with exacerbation Atrial fibrillation S/P watchman procedure and RAEGAN cardioversion 09/07 now in NSR Recent history of PE Lasix adjusted to 40 mg by mouth twice daily Continue metoprolol succinate 50 mg daily, spironolactone 25 mg daily Echocardiogram performed with low normal ejection fraction/elevated right ventricular pressures Unable to tolerate stress test inpatient-recommend stress test as an outpatient RAEGAN cardioversion performed 09/07 initially successful with 200 J now in sinus rhythm/paced rhythm Was on Eliquis prior to cardioversion for pulmonary embolism, continue Eliquis Encephalopathy versus delirium Much improved today, possibly related to Ambien No infectious findings currently History of GI bleed History of CVA Recent history of GI bleed but also pulmonary embolism Had scope without definitive findings possible AVM versus gastritis No active bleeding noted, continue Eliquis 2.5 mg p.o. 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
[2023-09-09] MEDS: MELATONIN 5 MG TABLET PO PRN (21:17)
[2023-09-10 06:41] LABS: Albumin 2.7 g/dL (3.4-5.0); Anion Gap 9.2 mEq/L (5.0-15.0); Phosphorus 2.8 mg/dL (2.5-4.9); Potassium 4.2 mEq/L (3.5-5.1)
[2023-09-10] MEDS: SPIRONOLACTONE 25 MG TABLET PO SCH (11:02)
--- NOTE | 2023-09-10 13:09 | P.PN ---
Date of Service: 09/10/23 Subjective Doing well today worked with PT Much more alert ROS 10 point ROS as noted above, otherwise negative Physical Exam General: AAO x2-3, NAD HEENT: Atraumatic, Normocephalic, PERRLA, Neck: Supple,, JVD not distended Respiratory: bilaterally Clear breath sounds, symmetrical chest wall movement, 2LNC Cardiovascular: Paced, no murmur noted Capillary refill: <2 Seconds Gastrointestinal: bowel sounds present, Soft and benign on palpation, NT/ND Integumentary: Other (bruising to face) Neurological: Normal speech, Normal tone, calm Vitals Reviewed Problem list Acute on chronic diastolic congestive heart failure Acute on chronic hypoxic respiratory failure secondary to COPD with exacerbation Encephalopathy versus delirium Atrial fibrillation S/P watchman procedure and RAEGAN cardioversion 09/07 now in NSR Recent history of PE History of GI bleed History of CVA 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 Debility/weakness Constipation Assessment and Plan Acute on chronic diastolic congestive heart failure Acute on chronic hypoxic respiratory failure secondary to COPD with exacerbation Atrial fibrillation S/P watchman procedure and RAEGAN cardioversion 09/07 now in NSR/paced Recent history of PE Lasix adjusted to 40 mg by mouth twice daily Continue metoprolol succinate 50 mg daily, spironolactone 25 mg daily, sotalol 80mg bid Echocardiogram performed with low normal ejection fraction/elevated right ventricular pressures Unable to tolerate stress test inpatient-recommend stress test as an outpatient RAEGAN cardioversion performed 09/07 initially successful with 200 J now in sinus rhythm/paced rhythm Was on Eliquis prior to cardioversion for pulmonary embolism, continue Eliquis Encephalopathy versus delirium-suspect delerium Much improved today, possibly related to Ambien No infectious findings currently History of GI bleed History of CVA Recent history of GI bleed but also pulmonary embolism Had scope without definitive findings possible AVM versus gastritis No active bleeding noted, continue Eliquis 2.5 mg p.o. 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
--- NOTE | 2023-09-10 17:29 | EKG ---
Test Date: 2023-09-08 Test Time: 15:19:56 Bender Machine: JAVI MEASUREMENT RESULTS: Intervals: Rate: 76 CT: 152 QRSD: 122 QT: 440 QTc: 495 [place]: P: 95 CT: 152 QRS: 51 T: 232 INTERPRETIVE STATEMENTS: Electronic atrial pacemaker Compared to ECG 09/04/2023 19:58:13 Atrial fibrillation no longer present Ventricular premature complex(es) no longer present T-wave abnormality no longer present Possible ischemia no longer present Electronically Signed On 09-10-23 17:22:05 CDT by Nahum Loera
--- NOTE | 2023-09-10 17:47 | EKG ---
Test Date: 2023-09-04 Test Time: 19:58:13 Carpet Weaver: MICKIE MEASUREMENT RESULTS: Intervals: Rate: 108 [place]: QRSD: 126 QT: 382 QTc: 511 [place]: P: AR: QRS: 14 T: 232 INTERPRETIVE STATEMENTS: Atrial fibrillation with rapid ventricular response with premature ventricular or aberrantly conducted complexes Nonspecific intraventricular block T wave abnormality, consider inferior ischemia or digitalis effect T wave abnormality, consider anterolateral ischemia or digitalis effect Abnormal ECG Compared to ECG 09/02/2023 13:07:57 Ventricular premature complex(es) now present T-wave abnormality now present Possible ischemia now present Myocardial infarct finding no longer present ST (T wave) deviation no longer present Electronically Signed On 09-10-23 17:30:27 CDT by Nahum Loera
--- NOTE | 2023-09-10 17:49 | EKG ---
Test Date: 2023-09-04 Test Time: 01:40:27 Carriage Dogger: JOLENE MEASUREMENT RESULTS: Intervals: Rate: 115 [place]: QRSD: 124 QT: 358 QTc: 495 [place]: P: CO: QRS: 25 T: 241 INTERPRETIVE STATEMENTS: Atrial fibrillation with rapid ventricular response RSR' or QR pattern in V1 suggests right ventricular conduction delay Marked ST abnormality, possible inferior subendocardial injury Abnormal ECG Compared to ECG 09/02/2023 13:07:57 RSR' in V1 or V2 now present Myocardial infarct finding no longer present ST (T wave) deviation still present Electronically Signed On 09-10-23 17:32:03 CDT by Nahum Loera
--- NOTE | 2023-09-10 17:49 | EKG ---
Test Date: 2023-09-04 Test Time: 01:39:34 Investigation Specialist: JOLENE MEASUREMENT RESULTS: Intervals: Rate: 114 [place]: QRSD: 122 QT: 356 QTc: 490 [place]: P: NV: QRS: 30 T: 246 INTERPRETIVE STATEMENTS: Atrial fibrillation with rapid ventricular response RSR' or QR pattern in V1 suggests right ventricular conduction delay Marked ST abnormality, possible inferior subendocardial injury Abnormal ECG Compared to ECG 09/02/2023 13:07:57 RSR' in V1 or V2 now present Myocardial infarct finding no longer present ST (T wave) deviation still present Electronically Signed On 09-10-23 17:32:08 CDT by Nahum Loera
--- NOTE | 2023-09-10 17:58 | EKG ---
Test Date: 2023-09-02 Test Time: 13:07:57 [employer] Vice President: KIT MEASUREMENT RESULTS: Intervals: Rate: 116 SC: QRSD: 122 QT: 346 QTc: 480 [place]: P: SC: QRS: 12 T: 224 INTERPRETIVE STATEMENTS: Atrial fibrillation Septal infarct, age undetermined Marked ST abnormality, possible inferior subendocardial injury Abnormal ECG Compared to ECG 07/03/2023 18:15:37 Myocardial infarct finding now present ST (T wave) deviation now present Ventricular premature complex(es) no longer present T-wave abnormality no longer present Possible ischemia no longer present Electronically Signed On 09-10-23 17:34:39 CDT by Nahum Loera
[2023-09-10] MEDS: POLYETHYL GLY 3350 17 GM/DOSE PO ONE (18:05)
--- NOTE | 2023-09-10 19:06 | PN ---
Date of Progress Note: 09/10/2023 Subjective: Seen by bedside. Still short of breath with activities with orthopnea, mild lower extre mity edema. No chest pain. No nausea, vomiting, diarrhea. No dysuria, polyuria, or urinary urgency . All other systems reviewed are negative. Physical Examination: Vital Signs: Reviewed. Head and Neck: Pupils are equal, reactive to light. Intact eye movements. Mild JVD. No cervical l ymphadenopathy. Neck: Supple. Thyroid is not enlarged. Lungs: Crackles in both bases. No accessory muscle use or muscle retraction. Heart: Regular rate and rhythm. No extra sounds. Abdomen: Soft, nontender. Bowel sounds positive. No organomegaly. No masses or hernia. No rigidi ty or rebound. Extremities: Trace edema bilaterally. No clubbing, cyanosis. Intact pulses. Skin: No rash. Neurologic: Alert, awake, oriented x3. No acute focal deficits appreciated. Investigations: BUN 14, creatinine 0.97. Hemoglobin is 9.7. Assessment/recommendations: 1.Acute on chronic diastolic heart failure exacerbation. Diuresing with Lasix to be continued and c ontinue Aldactone. Plan for nuclear stress test to be done as an outpatient. 2.Atrial fibrillation, status post cardioversion. She is in sinus. Continue sotalol, Eliquis, and metoprolol. She is currently atrial paced, but in sinus. 3.History of pulmonary embolism, on Eliquis, to be continued. Cardiology will sign off. We will follow this patient on an outpatient basis. /MANUEL Voice ID: [id number] Report ID: [id number]
[2023-09-11] MEDS: POLYETHYL GLY 3350 17 GM/DOSE PO ONE (09:58)
[2023-09-11] MEDS: BISACODYL 10 MG RECTAL SUPP PR ONE (09:59)
--- NOTE | 2023-09-11 12:19 | P.PN ---
Date of Service: 09/11/23 Subjective Doing well today worked with PT Much more alert dealing with constipation ROS 10 point ROS as noted above, otherwise negative Physical Exam General: AAO x2-3, NAD HEENT: Atraumatic, Normocephalic, PERRLA, Neck: Supple,, JVD not distended Respiratory: bilaterally Clear breath sounds, symmetrical chest wall movement, 2LNC Cardiovascular: Paced, no murmur noted Capillary refill: <2 Seconds Gastrointestinal: bowel sounds present, Soft and benign on palpation, NT/ND Integumentary: Other (bruising to face) Neurological: Normal speech, Normal tone, calm Vitals Reviewed 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 Debility/weakness Assessment and Plan Acute on chronic diastolic congestive heart failure Acute on chronic hypoxic respiratory failure secondary to COPD with exacerbation Atrial fibrillation S/P watchman procedure and RAEGAN cardioversion 09/07 now in NSR/paced Recent history of PE Lasix adjusted to 40 mg by mouth twice daily Continue metoprolol succinate 50 mg daily, spironolactone 25 mg daily, sotalol 80mg bid Echocardiogram performed with low normal ejection fraction/elevated right ventricular pressures Unable to tolerate stress test inpatient-recommend stress test as an outpatient RAEGAN cardioversion performed 09/07 initially successful with 200 J now in sinus rhythm/paced rhythm Was on Eliquis prior to cardioversion for pulmonary embolism, continue Eliquis Awaiting SNF Constipation Miralax yesterday miralax and suppository today consider enema Encephalopathy versus delirium-suspect delerium Much improved today, possibly related to Ambien No infectious findings currently History of GI bleed History of CVA Recent history of GI bleed but also pulmonary embolism Had scope without definitive findings possible AVM versus gastritis No active bleeding noted, continue Eliquis 2.5 mg p.o. 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
--- NOTE | 2023-09-12 11:43 | P.PN ---
Date of Service: 09/12/23 Subjective Doing well today worked with PT Much more alert Had a BM finally ROS 10 point ROS as noted above, otherwise negative Physical Exam General: AAO x2-3, NAD HEENT: Atraumatic, Normocephalic, PERRLA, Neck: Supple,, JVD not distended Respiratory: bilaterally Clear breath sounds, symmetrical chest wall movement, 2LNC Cardiovascular: Paced, no murmur noted Capillary refill: <2 Seconds Gastrointestinal: bowel sounds present, Soft and benign on palpation, NT/ND Integumentary: Other (bruising to face) Neurological: Normal speech, Normal tone, calm Vitals Reviewed 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 Debility/weakness Assessment and Plan Acute on chronic diastolic congestive heart failure Acute on chronic hypoxic respiratory failure secondary to COPD with exacerbation Atrial fibrillation S/P watchman procedure and RAEGAN cardioversion 09/07 now in NSR/paced Recent history of PE Lasix adjusted to 40 mg by mouth twice daily Continue metoprolol succinate 50 mg daily, spironolactone 25 mg daily, sotalol 80mg bid Echocardiogram performed with low normal ejection fraction/elevated right ventricular pressures Unable to tolerate stress test inpatient-recommend stress test as an outpatient RAEGAN cardioversion performed 09/07 initially successful with 200 J now in sinus rhythm/paced rhythm Was on Eliquis prior to cardioversion for pulmonary embolism, continue Eliquis Awaiting SNF Constipation Improving, had BM 09/10 Encephalopathy versus delirium-suspect delerium Much improved today, possibly related to Ambien No infectious findings currently History of GI bleed History of CVA Recent history of GI bleed but also pulmonary embolism Had scope without definitive findings possible AVM versus gastritis No active bleeding noted, continue Eliquis 2.5 mg p.o. 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
[2023-09-12] MEDS: INSULIN GLARGINE 100 UNIT/ML SQ SCH (20:48)
[2023-09-13 04:01] LABS: Hematocrit 29.9 % (36.0-45.0); Hemoglobin 9.8 g/dL (12.0-15.0); MCH 29.8 pg (27.0-35.0); MCHC 32.6 g/dL (32.0-36.0); MCV 91.4 fL (80-100); MPV 8.6 fL (7.6-11.3); Platelets 258 thou/uL (152-406); RBC Red Blood Cell Count 3.27 M/uL (3.86-4.86); Red Cell Distribution Width 18.3 % (12.1-15.2)
[2023-09-13 04:03] LABS: Anion Gap 9.9 mEq/L (5.0-15.0); Potassium 3.9 mEq/L (3.5-5.1)
[2023-09-13] MEDS: POTASSIUM CL SA 10 MEQ TAB PO ONE (09:20)
[2023-09-13 15:02] VITALS: BP 102/51; TEMP 97.1
--- NOTE | 2023-09-13 17:17 | P.DS ---
Admission Date: 09/02/23 Discharge Date: 09/13/23 Disposition: TRANSFER TO SNF - REHAB Discharge Condition: GOOD Reason for Admission: pulmonary Edema, heart failure Consultations: CardiologyDr. Loera Procedures: RAEGAN cardioversion 09/07 Brief History of Present Illness: Kori Saenz is an 83-year-old female with past medical history of a-fib; Anemia; Chronic obstructive lung disease (2 LNC home O2); CVA; Dementia; Diverticulitis; GERD; insomnia; Migraines who presents to the ED with complaints of shortness of breath, cough, lower extremity edema which has worsened since Wednesday. Kori will be admitted to hospitalist service for further evaluation and treatment of Acute hypoxic respiratory failure 2/ COPD exacerbation and acute on chronic decompensated heart failure. Hospital Course: Patient was admitted to the hospital for hypoxic respiratory failure, COPD exacerbation, CHF exacerbation. She has a known history of atrial fibrillation with previous Watchman procedure and was noted to be in A-fib RVR with rate in the 110s to 120s. For her CHF and COPD she was treated with IV diuresis, nebulizer treatments and in regards to her A-fib RVR she was initially treated conservatively with sotalol but did not have significant improvement. She subsequently underwent a RAEGAN cardioversion which was successful and she has been in paced rhythm since then. Prior to this hospitalization she was taking Cardizem for her A-fib, Cardizem was discontinued, her metoprolol dose was reduced. In regards to her A- fib/heart failure she should be on the following medications: Metoprolol succinate 50 mg daily Spironolactone 25 mg daily Sotalol 80 mg by mouth twice daily Eliquis 2.5 mg by mouth twice daily Lasix 40mg by mouth twice daily Diltiazem should be discontinued Continue other home medications as previously prescribed Records from previous hospitalization at [facility] were reviewed, it is noted that patient had a recent pulmonary embolism and prior to that had a GI bleed of unknown origin. The bleeding has stabilized and then she was found to have a pulmonary embolism, she was seen by the specialist at [facility] who recommended treatment with Eliquis 2.5 mg twice daily for the pulmonary embolism. Reduced dose given her recent GI bleed. She has been on the Eliquis throughout her hospitalization here, there has been no evidence of GI bleeding during that time. She also struggles with chronic constipation, she was treated with MiraLAX, suppository x 1 and was able to have a bowel movement. 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 Debility/weakness Vital Signs/Physical Exam: Temp Pulse Resp BP Pulse Ox 97.1 F 82 18 102/51 L 99 09/13/23 12:00 09/13/23 12:00 09/13/23 12:00 09/13/23 12:00 09/13/23 12:00 General: Alert, In no apparent distress, Oriented x3 HEENT: Atraumatic, PERRLA Neck: Supple, JVD not distended Respiratory: Clear to auscultation bilaterally, Normal air movement Cardiovascular: Regular rate/rhythm, Normal S1 S2 Gastrointestinal: Normal bowel sounds, No tenderness Musculoskeletal: No tenderness Integumentary: No rashes Neurological: Normal speech, Normal tone, Normal affect Laboratory Data at Discharge: WBC 6.10 thou/uL (4.3-10.9) 09/13/23 03:16 Hgb 9.8 g/dL (12.0-15.0) L 09/13/23 03:16 Hct 29.9 % (36.0-45.0) L 09/13/23 03:16 Plt Count 258 thou/uL (152-406) 09/13/23 03:16 Sodium 136 mEq/L (136-145) 09/13/23 03:16 Potassium 3.9 mEq/L (3.5-5.1) 09/13/23 03:16 BUN 19 mg/dL (7-18) H 09/13/23 03:16 Creatinine 0.96 mg/dL (0.55-1.02) 09/13/23 03:16 Glucose 163 mg/dL (74-106) H 09/13/23 03:16 Phosphorus 2.8 mg/dL (2.5-4.9) 09/10/23 05:50 Magnesium 1.9 mg/dL (1.6-2.4) 03/12/24 06:35 Triglycerides 72 mg/dL (<150) 09/03/23 02:31 Cholesterol 73 mg/dL (<200) 09/03/23 02:31 HDL Cholesterol 21 mg/dL (40-60) L 09/03/23 02:31 Cholesterol/HDL Ratio 3.48 09/03/23 02:31 Home Medications: Albuterol Sulfate [Ventolin Hfa] 2 puff IH TID 09/03/23 Apixaban [Eliquis *] 2.5 mg PO BID 09/03/23 Atorvastatin Calcium [Lipitor*] 20 mg PO BEDTIME 09/03/23 Budesonide [Pulmicort] 0.25 mg IH BID 09/03/23 Docusate [Colace Cap] 100 mg PO DAILY 09/03/23 Donepezil HCl 10 mg PO DAILY 09/03/23 Duloxetine HCl [Cymbalta] 30 mg PO DAILY 09/03/23 Fexofenadine HCl 60 mg PO DAILY 09/03/23 Furosemide [Lasix*] 40 mg PO DAILY 09/03/23 Ipratropium/Albuterol Sulfate [Iprat-Albut 0.5-3(2.5) mg/3 ml] 3 ml IH Q6H 09/03/23 Linaclotide [Linzess] 145 mcg PO BEDTIME 09/03/23 Omeprazole [Prilosec] 40 mg PO DAILY 09/03/23 Apixaban [Eliquis *] 2.5 mg PO BID 09/13/23 Insulin Glargine,Hum.rec.anlog [Semglee] 5 unit SQ BEDTIME ml 09/13/23 Metoprolol Succinate [Toprol Xl*] 50 mg PO DAILY tab 09/13/23 Sotalol HCl [Betapace*] 80 mg PO BID 6AM 6PM tab 09/13/23 Spironolactone [Aldactone*] 25 mg PO DAILY tab 09/13/23 Temazepam [Restoril*] 7.5 mg PO BEDTIME PRN PRN cap 09/13/23 Physician Discharge Instructions: Patient was admitted to the hospital for hypoxic respiratory failure, COPD exacerbation, CHF exacerbation. She has a known history of atrial fibrillation with previous Watchman procedure and was noted to be in A-fib RVR with rate in the 110s to 120s. For her CHF and COPD she was treated with IV diuresis, nebulizer treatments and in regards to her A-fib RVR she was initially treated conservatively with sotalol but did not have significant improvement. She subsequently underwent a RAEGAN cardioversion on 09/07 which was successful and she has been in paced rhythm since then. Prior to RAEGAN cardioversion an attempt was made to obtain a stress test, patient was feeling nauseous and was unable to complete the procedure, cardiology recommends patient have a stress test as an outpatient. Prior to this hospitalization she was taking Cardizem for her A-fib, Cardizem was discontinued, her metoprolol dose was reduced. In regards to her A- fib/heart failure she should be on the following medications: Metoprolol succinate 50 mg daily Spironolactone 25 mg daily Sotalol 80 mg by mouth twice daily Eliquis 2.5 mg by mouth twice daily Lasix 40mg by mouth twice daily Diltiazem should be discontinued Continue other home medications as previously prescribed Avoid other medications that may prolong QT/QTc Records from previous hospitalization at [facility] were reviewed, it is noted that patient had a recent pulmonary embolism and prior to that had a GI bleed of unknown origin. The bleeding has stabilized and then she was found to have a pulmonary embolism, she was seen by the specialist at [facility] who recommended treatment with Eliquis 2.5 mg twice daily for the pulmonary embolism. Reduced dose given her recent GI bleed. She has been on the Eliquis throughout her hospitalization here, there has been no evidence of GI bleeding during that time. She also struggles with chronic constipation, she was treated with MiraLAX, suppository x 1 and was able to have a bowel movement. She was accepted for transfer to [facility] today. [address] [address] P:[phone]/ F:[phone] Diet: ADA Activity: Fall precautions Followup: Liliya Hanson MD [Primary Care Provider] - 1-2 Weeks Time spent managing pt's care (in minutes): 30
[2023-09-13 18:09] VITALS: O2SAT 98
--- NOTE | 2023-09-14 14:17 | EKG ---
Test Date: 2023-09-09 Test Time: 15:40:57 Software Engineer Mobile: SOFI MEASUREMENT RESULTS: Intervals: Rate: 74 GA: 152 QRSD: 128 QT: 440 QTc: 488 [place]: P: 84 GA: 152 QRS: 20 T: 210 INTERPRETIVE STATEMENTS: Electronic atrial pacemaker Compared to ECG 09/08/2023 15:19:56 No significant changes Electronically Signed On 09-14-23 14:08:27 CDT by Nahum Loera
== END 2023-09-13 17:51 | DRG 291 ==
LOC: ER 12:59 → ERHOLD 16:49 → 4TH 19:21
PROVIDERS: ADMIT Internal Medicine; ATTEND Hospitalist
PROC: B24BZZ4 Ultrasonography of Heart with Aorta, Transesophageal (ICD-10-PCS; principal; 2023-09-08)
DX: I50.33 Acute on chronic diastolic (congestive) heart failure (principal); J96.21 Acute and chronic respiratory failure with hypoxia; J44.1 Chronic obstructive pulmonary disease with (acute) exacerbation; G93.40 Encephalopathy, unspecified; E83.42 Hypomagnesemia; G47.00 Insomnia, unspecified; I48.91 Unspecified atrial fibrillation; I27.20 Pulmonary hypertension, unspecified; K59.00 Constipation, unspecified; I71.21 Aneurysm of the ascending aorta, without rupture; K21.9 Gastro-esophageal reflux disease without esophagitis; F03.90 Unspecified dementia, unspecified severity, without behavioral disturbance, psychotic disturbance, mood disturbance, and anxiety; R73.9 Hyperglycemia, unspecified; Z66 Do not resuscitate; Z79.01 Long term (current) use of anticoagulants; Z99.81 Dependence on supplemental oxygen; Z86.73 Personal history of transient ischemic attack (TIA), and cerebral infarction without residual deficits; Z91.81 History of falling; Z87.891 Personal history of nicotine dependence; Z79.899 Other long term (current) drug therapy; Z86.711 Personal history of pulmonary embolism
CPT/HCPCS: 36415; 71045; 71275; 74018; 80048; 80061; 80069; 81001; 82306; 82947; 83036; 83735; 83880; 84100; 84132; 84439; 84443; 84484; 85025; 85027; 92960; 93005; 93306; 93312; 94640; 96374; 96375; 97116; 97161; 97530; 99285; J1650; J1815; J1940; J2001; J2405; J2704; J3475; J7040; J7605; Q9967

== ENCOUNTER 2023-10-24 14:40 | Inpatient (IN) | payer BC ==
[2023-10-24] MEDS ORDERED: FUROSEMIDE 20 MG/ 2ML VIAL ONE (15:15)
[2023-10-24] MEDS ORDERED: FUROSEMIDE 40 MG/4 ML VIAL ONE (15:16)
--- NOTE | 2023-10-24 15:20 | RAD REPORT ---
EXAM DESCRIPTION: [place] Single View10/24/2023 3:09 pm CLINICAL HISTORY: Shortness breath COMPARISON: October 20, 2023 FINDINGS: Worsening in bilateral pulmonary opacities which are moderate. Cardiomegaly. Pacemaker leads in place. Probably are small to moderate bilateral pleural effusions IMPRESSION: Moderate CHF
[2023-10-24 15:51] LABS: Absolute Basophils 0.1 K/uL (0-0.5); Absolute Eosinophils 0.1 K/uL (0-0.5); Absolute Lymphocytes (CBC) 0.8 K/uL (0.7-4.9); Absolute Monocytes 0.4 K/uL (0.1-1.3); Absolute Neutrophil 7.1 K/uL (1.8-8.0); Basophils % 0.6 % (0-1.3); Eosinophils % 0.9 % (0-4.4); Hematocrit 34.7 % (36.0-45.0); Hemoglobin 10.9 g/dL (12.0-15.0); Lymphocytes % 9.6 % (15.3-44.8); MCH 28.3 pg (27.0-35.0); MCHC 31.5 g/dL (32.0-36.0); MCV 89.9 fL (80-100); MPV 8.2 fL (7.6-11.3); Monocytes % 4.7 % (3.3-12.3); Neutrophils % 84.2 % (41.7-73.7); Nucleated Red Blood Cells % 0.1 % (0-0); PT Prothrombin Time 15.6 SECONDS (9.5-12.5); Platelets 273 thou/uL (152-406); Protime INR 1.43; RBC Red Blood Cell Count 3.86 M/uL (3.86-4.86); Red Cell Distribution Width 17.9 % (12.1-15.2)
[2023-10-24 16:24] LABS: Albumin 3.6 g/dL (3.4-5.0); Albumin/Globulin Ratio 0.8 (1.1-1.8); Anion Gap 7.3 mEq/L (5.0-15.0); Bilirubin Direct 0.3 mg/dL (0-0.2); Bilirubin Indirect, Calculated 0.9 mg/dL (0.2-0.8); Bilirubin Total 1.2 mg/dL (0.2-1.0); Globulin 4.6 g/dL (2.3-3.5); Potassium 4.3 mEq/L (3.5-5.1); Protein, Total 8.2 g/dL (6.4-8.2); Troponin High Sensitivity 39.5 pg/mL (<58.9)
--- NOTE | 2023-10-24 16:49 | ER ---
Nurse's Notes [facility] Name: Kori Saenz Age: 83 yrs Sex: Female : 1940 Arrival Date: 10/24/2023 Time: 14:40 Bed 17 Private MD: Diagnosis: Acute on chronic combined systolic (congestive) and diastolic (congestive) heart failure;Acute pulmonary edema;Dyspnea Presentation: 10/23 14:30 Chief complaint: EMS states: FROM HOME WITH SOB, AND CP. HX OF CHF. COMPLAINS OF NAUSEA db TODAY. Coronavirus screen: Client denies travel out of the [place] in the last 14 days. At this time, the client does not indicate any symptoms associated with coronavirus-19. Ebola Screen: Patient negative for fever greater than or equal to 101.5 degrees Fahrenheit, and additional compatible Ebola Virus Disease symptoms Patient denies exposure to infectious person. Patient denies travel to an Ebola-affected area in the 21 days before illness onset. No symptoms or risks identified at this time. Initial Sepsis Screen: Does the patient meet any 2 criteria? No. Patient's initial sepsis screen is negative. Does the patient have a suspected source of infection? No. Patient's initial sepsis screen is negative. Risk Assessment: Do you want to hurt yourself or someone else? Patient reports no desire to harm self or others. Onset of symptoms was October 24, 2023. Care prior to arrival: IV initiated. 20 GA, in the left antecubital area, Med neb given. 14:30 Method Of Arrival: [facility] db 14:30 Acuity: DARION 2 db Triage Assessment: 14:30 General: Appears in no apparent distress. comfortable, Behavior is calm, cooperative. db Pain: Complains of pain in chest. Neuro: Level of Consciousness is awake, alert, obeys commands, Oriented to person, place, time, situation. Cardiovascular: Reports chest pain, shortness of breath. Respiratory: Airway is patent Respiratory effort is even, unlabored, Respiratory pattern is regular, symmetrical. 14:30 GI: Abdomen is flat, non-distended, Reports nausea. db Historical: - Allergies: 14:51 No Known Allergies; db - PMHx: 14:51 Chronic obstructive lung disease; CVA; Dementia; Diverticulitis; GERD; insomnia; db Anemia; a-fib; Migraines; - Immunization history:: Adult Immunizations. - Infectious Disease History:: Denies. - Social history:: Smoking status: Patient denies any tobacco usage or history of. Screenin:[facility] ED Fall Risk Assessment (Adult) History of falling in the last 3 months, db including since admission Yes- single mechanical fall (1 pt) Confusion or Disorientation No (0 pts) Intoxicated or Sedated No (0 pts) Impaired Gait No (0 pts) Mobility Assist Device Used Yes (1 pt) Altered Elimination No (0 pt) Score/Fall Risk Level 0 - 2 = Low Risk Oriented to surroundings, Maintained a safe environment. Abuse screen: Denies threats or abuse. Denies injuries from another. Nutritional screening: No deficits noted. Tuberculosis screening: No symptoms or risk factors identified. Assessment: 14:54 Reassessment: SEE TRIAGE FOR INITIAL ASSESSMENT. Pain: Complains of pain in chest. db 15:25 Reassessment: Patient appears in no apparent distress at this time. Patient and/or db family updated on plan of care and expected duration. Pain level reassessed. Patient is alert, oriented x 3, equal unlabored respirations, skin warm/dry/pink. PURWICK IN PLACE FOR PATIENT COMFORT. Vital Signs: 14:30 BP 172 / 91; Pulse 72; Resp 18; Pulse Ox 95% on 2 lpm NC; db 15:00 BP 186 / 82; Pulse 73; Resp 20; Temp 97.6; Pulse Ox 98% on 2 lpm NC; db 16:00 BP 168 / 70; Pulse 76; Resp 20; Pulse Ox 96% ; db 18:00 BP 140 / 58; Pulse 71; Resp 19; Temp 97.6; Pulse Ox 99% on 2 lpm NC; db ED Course: 14:30 Arm band placed on Patient placed in an exam room. db 14:48 Patient arrived in ED. db 14:49 Leela Owens, RN is Primary Nurse. db 14:50 Abimbola Ratliff MD is Attending Physician. gb1 14:51 Triage completed. db 14:54 Patient has correct armband on for positive identification. Placed in gown. Bed in low db position. Call light in reach. Side rails up X2. Client placed on continuous cardiac and pulse oximetry monitoring. NIBP monitoring applied. ekg monitor on. Pulse ox on. NIBP on. Warm blanket given. 15:10 XRAY Chest (1 view) In Process Unspecified. EDMS 15:30 Initial lab(s) drawn, by me, sent to lab. EKG done, by ED staff, reviewed by Abimbola Ratliff MD. 15:39 Inserted saline lock: 22 gauge in right antecubital area, using aseptic technique. db Blood collected. 16:47 Buddy Sterling MD is Hospitalizing Provider. gb1 19:47 Provided Education on: need for admit. pf1 19:47 No provider procedures requiring assistance completed. Patient admitted, IV remains in pf1 place. Oxygen administration via nasal cannula \T\ 2L/min. Administered Medications: 15:32 Drug: Furosemide IVP 60 mg IVP once; give over 2 minutes Route: IVP; Site: right db antecubital; 19:34 Drug: Acetaminophen PO 650 mg PO once Route: PO; pf1 19:40 Follow up: Response: No adverse reaction; Pain is decreased pf1 Medication: 15:41 VIS not applicable for this client. db Outcome: 16:48 Decision to Hospitalize by Provider. gb1 19:47 Admitted to Med/surg accompanied by tech, via stretcher, room 407, with oxygen, with pf1 chart, Report called to report faxed 19:47 Condition: stable 19:47 Instructed on the need for admit, Demonstrated understanding of instructions, 19:57 Patient left the ED. pf1 Signatures: Dispatcher [employer] EDMS Leela Owens RN RN db Finley, Pamala, RN RN pf1 Abimbola Ratliff MD MD gb1 Corrections: (The following items were deleted from the chart) 14:53 14:30 BP 172 / 91; Pulse 72bpm; Resp 18bpm; Pulse Ox 95% RA; db db 18:58 15:00 BP 186 / 82; Pulse 73bpm; Resp 20bpm; Pulse Ox 98% 2 lpm Nasal Cannula; db db
--- NOTE | 2023-10-24 16:49 | EDPHYS ---
Physician Documentation [facility] Name: Kori Saenz Age: 83 yrs Sex: Female : 1940 Arrival Date: 10/24/2023 Time: 14:40 Bed 17 Private MD: ED Physician Abimbola Ratliff Historical: - Allergies: 10/23 14:51 No Known Allergies; db - PMHx: 14:51 Chronic obstructive lung disease; CVA; Dementia; Diverticulitis; GERD; insomnia; db Anemia; a-fib; Migraines; - Immunization history:: Adult Immunizations. - Infectious Disease History:: Denies. - Social history:: Smoking status: Patient denies any tobacco usage or history of. Vital Signs: 14:30 BP 172 / 91; Pulse 72; Resp 18; Pulse Ox 95% on 2 lpm NC; db 15:00 BP 186 / 82; Pulse 73; Resp 20; Temp 97.6; Pulse Ox 98% on 2 lpm NC; db 16:00 BP 168 / 70; Pulse 76; Resp 20; Pulse Ox 96% ; db 18:00 BP 140 / 58; Pulse 71; Resp 19; Temp 97.6; Pulse Ox 99% on 2 lpm NC; db MDM: 14:51 Patient medically screened. gb1 10/23 14:51 Order name: Basic Metabolic Panel; Complete Time: 16:37 gb1 10/23 14:51 Order name: CBC with Diff; Complete Time: 16:19 gb1 10/23 14:51 Order name: LFT's; Complete Time: 16:37 gb1 10/23 14:51 Order name: NT PRO-BNP; Complete Time: 16:37 gb1 10/23 14:51 Order name: PT-INR; Complete Time: 16:19 gb1 10/23 14:51 Order name: Troponin HS; Complete Time: 16:37 gb1 10/23 17:30 Order name: Thyroid Stimulating Hormone; Complete Time: 18:27 EDMS 10/23 17:30 Order name: CBC with Automated Diff EDMS 10/23 17:30 Order name: CBC with Automated Diff EDMS 10/23 17:30 Order name: Comprehensive Metabolic Panel EDMS 10/23 17:30 Order name: Comprehensive Metabolic Panel EDMS 10/23 17:30 Order name: Lipid Profile EDMS 10/23 17:30 Order name: Lipid Profile EDND 10/23 17:30 Order name: Magnesium EDND 10/23 17:30 Order name: Magnesium [facility] 10/23 17:30 Order name: Protime (+INR) [facility] 10/23 17:30 Order name: Protime (+INR) [facility] 10/23 17:30 Order name: PTT, Activated Partial Thromb EDND 10/23 17:30 Order name: PTT, Activated Partial Thromb [facility] 10/23 17:30 Order name: Urinalysis w/ reflexes [facility] 10/23 14:51 Order name: XRAY Chest (1 view); Complete Time: 15:33 10/23 14:51 Order name: EKG; Complete Time: 14:52 10/23 17:31 Order name: Patient Safety Orders [facility] 10/23 14:51 Order name: Cardiac monitoring; Complete Time: 14:52 10/23 14:51 Order name: EKG - Nurse/Tech; Complete Time: 14:52 10/23 14:51 Order name: IV Saline Lock; Complete Time: 15:39 10/23 14:51 Order name: Labs collected and sent; Complete Time: 15:39 10/23 14:51 Order name: O2 Per Protocol; Complete Time: 14:52 10/23 14:51 Order name: O2 Sat Monitoring; Complete Time: 14:52 gb Administered Medications: 15:32 Drug: Furosemide IVP 60 mg IVP once; give over 2 minutes Route: IVP; Site: right db antecubital; 19:34 Drug: Acetaminophen PO 650 mg PO once Route: PO; pf1 19:40 Follow up: Response: No adverse reaction; Pain is decreased pf1 Disposition Summary: 10/24/23 16:48 Hospitalization Ordered Notes: Hospitalization Status: Inpatient Admission gb1 Provider: Buddy Sterling Location: Telemetry/MedSurg (Inpatient) gb1 Condition: Fair gb1 Problem: an acute exacerbation gb1 Symptoms: have worsened gb1 Bed/Room Type: Standard gb1 Room Assignment: 407(10/24/23 18:36) eb Diagnosis - 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 EDMS EDMS 18:36 16:48 [facility]
[2023-10-24] MEDS ORDERED: SODIUM CHLORIDE 0.9% 10ML INJ IV PRN (17:21)
[2023-10-24] MEDS: SOTALOL HCL 80 MG TAB PO SCH (18:00)
[2023-10-24] MEDS ORDERED: SOTALOL HCL 80 MG TAB ONE (19:12)
[2023-10-24] MEDS ORDERED: ACETAMINOPHEN 325 MG TABLET ONE (19:26)
[2023-10-24 19:38] VITALS: BMI 24.9
[2023-10-24] MEDS: MELATONIN 3 MG TABLET PO SCH (21:00)
[2023-10-24] MEDS: ATORVASTATIN 20 MG TAB PO SCH (21:00)
[2023-10-24] MEDS: APIXABAN 2.5 MG TABLET PO SCH (21:00)
[2023-10-24] MEDS: DULOXETINE 30 MG CAP PO SCH (21:00)
[2023-10-24] MEDS: PANTOPRAZOLE 40 MG INJ IVP SCH (21:00)
[2023-10-24] MEDS ORDERED: RESTORIL 7.5 MG PO PRN (21:13)
[2023-10-24] MEDS: ALBUTEROL SULFATE IH SCH (21:15)
[2023-10-24] MEDS: IPRATROPIUM IH SCH (21:15)
[2023-10-24] MEDS ORDERED: ONDANSETRON 4 MG/2 ML VIAL IV PRN (21:27)
--- NOTE | 2023-10-24 21:27 | P.HP ---
Certification for Inpatient Patient admitted to: Inpatient With expected LOS: >2 Midnights Practitioner: I am a practitioner with admitting privileges, knowledge of patient current condition, hospital course, and medical plan of care. Services: Services provided to patient in accordance with Admission requirements found in Title 42 Section 412.3 of the Code of Federal Regulations Patient History Date of Service: 10/24/23 Reason for admission: SHORT OF BREATH AND FATIGUE History of Present Illness: JULIANA HAS CHF BY HISTORY WITH DIASTOLIC DYSFUNCTION AND EF OF 50%. SHE EATS CHIPS FOR SNACKS. I EXPLAINED TO DAUGHTER THAT EVEN A FEW CHIPS A DAY WILL TRIGGER CHF. SHE IS SHORT OF BREATH FOR 2 DAYS AND IS FATIGUED. I REVIEWED PREVIOUS RECORDS FROM [facility]. Allergies No Known Allergies Allergy (Unverified 09/02/23 19:26) Home medications list reviewed: Yes Home Medications: Albuterol Sulfate [Ventolin Hfa] 2 puff IH TID 09/03/23 Apixaban [Eliquis *] 2.5 mg PO BID 09/03/23 Atorvastatin Calcium [Lipitor*] 20 mg PO BEDTIME 09/03/23 Budesonide [Pulmicort] 0.25 mg IH BID 09/03/23 Docusate [Colace Cap] 100 mg PO DAILY 09/03/23 Donepezil HCl 10 mg PO DAILY 09/03/23 Duloxetine HCl [Cymbalta] 30 mg PO DAILY 09/03/23 Fexofenadine HCl 60 mg PO DAILY 09/03/23 Furosemide [Lasix*] 40 mg PO DAILY 09/03/23 Ipratropium/Albuterol Sulfate [Iprat-Albut 0.5-3(2.5) mg/3 ml] 3 ml IH Q6H 09/03/23 Linaclotide [Linzess] 145 mcg PO BEDTIME 09/03/23 Omeprazole [Prilosec] 40 mg PO DAILY 09/03/23 Metoprolol Succinate [Toprol Xl*] 50 mg PO DAILY tab 09/13/23 Sotalol HCl [Betapace*] 80 mg PO BID 6AM 6PM tab 09/13/23 Spironolactone [Aldactone*] 25 mg PO DAILY tab 09/13/23 Temazepam [Restoril*] 7.5 mg PO BEDTIME PRN PRN cap 09/13/23 - Past Medical/Surgical History Has patient received pneumonia vaccine in the past: Yes -: Afib -: COPD -: Diverticulitis -: GERD -: migraines -: CVA -: Pacer -: Watchman - Social History Smoking Status: Never smoker Alcohol use: No CD- Drugs: No Place of Residence: Home Review of Systems 10-point ROS is otherwise unremarkable General: Weakness Respiratory: Shortness of Breath Physical Examination - Vital Signs Temperature: 97.6 F Blood Pressure: 140/58 Pulse: 71 Respirations: 19 Pulse Ox (%): 99 - Physical Exam General: Oriented x3, Mild distress, Moderate distress HEENT: Atraumatic, PERRLA, Mucous membr. moist/pink, EOMI, Sclerae nonicteric Neck: Supple, 2+ carotid pulse no bruit, No LAD, Without JVD or thyroid abnormality Respiratory: Clear to auscultation bilaterally, Normal air movement Cardiovascular: Regular rate/rhythm, Normal S1 S2 Gastrointestinal: Normal bowel sounds, No tenderness Musculoskeletal: No tenderness Integumentary: No rashes Neurological: Normal gait, Normal speech, Normal strength at 5/5 x4 extr, Normal tone, Normal affect Lymphatics: No axilla or inguinal lymphadenopathy - Studies Laboratory Data (last 24 hrs) 10/24/23 10/24/23 10/24/23 15:30 15:30 15:30 WBC 8.40 Hgb 10.9 L Hct 34.7 L Plt Count 273 PT 15.6 H INR 1.43 Sodium 135 L Potassium 4.3 BUN 11 Creatinine 0.86 Glucose 208 H Total Bilirubin 1.2 H AST 16 ALT 20 Alkaline Phosphatase 94 Assessment and Plan - Problems (Diagnosis) (1) Acute on chronic diastolic heart failure Current Visit: No Status: Acute Plan: LASIX IV BID SPIRONOLACTONE DAILY. AVOID SALT IN FOOD. THIS SHOULD HELP. SHE HAS SEEN DICE TABLE OPERATOR FOR LAST FEW VISITS. THIS IS THE FIRST VISIT WITH ME QUARRY SUPERVISOR DIMENSION STONE FOR HER. PT CONSULT DAILY LAB (2) Atrial fibrillation Current Visit: No Status: Chronic - Advance Directives Does patient have a Living Will: No Does patient have a Durable POA for Healthcare: No
[2023-10-24] MEDS: ALBUTEROL 2.5 MG/3 ML NEB SOL NEB SCH (21:29)
[2023-10-24] MEDS: BUDESONIDE 0.25 MG/2 ML NEB NEB SCH (21:29)
[2023-10-24] MEDS: IPRATROPIUM BROM 0.5MG/2.5ML NEB SCH (21:29)
[2023-10-24] MEDS: DONEPEZIL HCL 5 MG TAB PO SCH (22:22)
[2023-10-25] MEDS: PANTOPRAZOLE 40MG TABLET PO SCH (05:55)
[2023-10-25] MEDS ORDERED: SOTALOL HCL 80 MG TAB PO SCH (06:00)
[2023-10-25 07:18] LABS: Absolute Eosinophils 0.1 K/uL (0-0.5); Absolute Lymphocytes (CBC) 1.6 K/uL (0.7-4.9); Absolute Monocytes 0.7 K/uL (0.1-1.3); Absolute Neutrophil 3.3 K/uL (1.8-8.0); Basophils % 0.5 % (0-1.3); Eosinophils % 2.4 % (0-4.4); Hematocrit 29.6 % (36.0-45.0); Hemoglobin 9.3 g/dL (12.0-15.0); Lymphocytes % 27.4 % (15.3-44.8); MCH 28.2 pg (27.0-35.0); MCHC 31.6 g/dL (32.0-36.0); MCV 89.2 fL (80-100); MPV 8.9 fL (7.6-11.3); Monocytes % 12.2 % (3.3-12.3); Neutrophils % 57.5 % (41.7-73.7); Nucleated Red Blood Cells % 0.1 % (0-0); PT Prothrombin Time 14.5 SECONDS (9.5-12.5); PTT, Activated Partial Thromb 29.8 SECONDS (24.3-36.9); Platelets 234 thou/uL (152-406); Protime INR 1.33; RBC Red Blood Cell Count 3.32 M/uL (3.86-4.86); Red Cell Distribution Width 17.5 % (12.1-15.2)
[2023-10-25 07:26] LABS: Albumin/Globulin Ratio 0.8 (1.1-1.8); Anion Gap 6.6 mEq/L (5.0-15.0); Bilirubin Total 0.8 mg/dL (0.2-1.0); Globulin 3.7 g/dL (2.3-3.5); Magnesium 1.3 mg/dL (1.6-2.4); Potassium 3.6 mEq/L (3.5-5.1); Protein, Total 6.7 g/dL (6.4-8.2)
[2023-10-25] MEDS: PNEUMOCOCCAL VACCINE 0.5 ML IMVAC ONE (08:00)
[2023-10-25] MEDS: BUDESONIDE 0.25 MG/2 ML NEB IH SCH ×2 (08:06→20:42)
[2023-10-25] MEDS ORDERED: DULOXETINE 30 MG CAP PO SCH (09:00)
[2023-10-25] MEDS ORDERED: FUROSEMIDE 40 MG TABLET PO SCH (09:00)
[2023-10-25] MEDS ORDERED: FUROSEMIDE 20 MG/ 2ML VIAL IV SCH (09:00)
[2023-10-25] MEDS ORDERED: ALBUTEROL INHALER 200 PUFF/6.7 GM IH SCH (09:00)
[2023-10-25] MEDS: FEXOFENADINE HCL 60 MG PO SCH (09:00)
[2023-10-25] MEDS ORDERED: APIXABAN 2.5 MG TABLET PO SCH (09:00)
[2023-10-25] MEDS ORDERED: SPIRONOLACTONE 25 MG TABLET PO SCH ×2 (09:00)
[2023-10-25] MEDS ORDERED: BUDESONIDE 0.25 MG/2 ML NEB IH SCH (09:00)
[2023-10-25] MEDS: SPIRONOLACTONE 25 MG TABLET PO SCH (10:18)
[2023-10-25] MEDS: DOCUSATE NA 100 MG CAP PO SCH (10:19)
[2023-10-25] MEDS: POTASSIUM CL SA 10 MEQ TAB PO ONE (10:19)
[2023-10-25] MEDS: SOTALOL HCL 80 MG TAB PO SCH (10:20)
[2023-10-25] MEDS: APIXABAN 2.5 MG TABLET PO SCH (10:20)
[2023-10-25] MEDS: DULOXETINE 30 MG CAP PO SCH (10:20)
[2023-10-25] MEDS: FUROSEMIDE 20 MG/ 2ML VIAL IV SCH (10:21)
[2023-10-25] MEDS: Magnesium Sulfate 2gm IVPB 2 G/50 ML BAG IV ONE (10:22)
--- NOTE | 2023-10-25 12:57 | EKG ---
Test Date: 2023-10-24 Test Time: 14:44:51 Interventional Nurse: MARY MEASUREMENT RESULTS: Intervals: Rate: 74 PA: 232 QRSD: 106 QT: 424 QTc: 470 [place]: P: -73 PA: 232 QRS: 12 T: 269 INTERPRETIVE STATEMENTS: Atrial-paced rhythm with prolonged AV conduction RSR' or QR pattern in V1 suggests right ventricular conduction delay Anterior infarct, age undetermined Marked ST abnormality, possible inferior subendocardial injury Abnormal ECG Compared to ECG 09/09/2023 15:40:57 RSR' in V1 or V2 now present Myocardial infarct finding now present ST (T wave) deviation now present Electronically Signed On 10-25-23 12:54:58 CDT by Nahum Loera
[2023-10-25] MEDS: ALBUTEROL 2.5 MG/3 ML NEB SOL IH SCH (14:20)
[2023-10-25] MEDS: IPRATROPIUM BROM 0.5MG/2.5ML IH SCH (14:20)
--- NOTE | 2023-10-25 16:30 | P.PN ---
Subjective Date of Service: 10/25/23 Chief Complaint: SHORT OF BREATH AND FATIGUE Subjective: No new changes still complains a lot. No visible distress. Chronic anxiety. Review of Systems 10-point ROS is otherwise unremarkable General: Weakness, Malaise Physical Examination - Vital Signs Temperature: 97.3 F Blood Pressure: 154/67 Pulse: 75 Respirations: 16 Pulse Ox (%): 99 - Physical Exam General: Oriented x3, Mild distress HEENT: Atraumatic, PERRLA, EOMI Neck: Supple, JVD not distended Respiratory: Diminished Cardiovascular: Regular rate/rhythm, Normal S1 S2 Gastrointestinal: Normal bowel sounds, No tenderness Musculoskeletal: No tenderness Integumentary: No rashes Neurological: Normal speech, Normal tone, Normal affect Lymphatics: No axilla or inguinal lymphadenopathy - Studies Medications List Reviewed: Yes Assessment And Plan - Current Problems (Diagnosis) (1) Acute on chronic diastolic heart failure Current Visit: No Status: Acute Plan: LASIX IV BID SPIRONOLACTONE DAILY. AVOID SALT IN FOOD. THIS SHOULD HELP. SHE HAS SEEN SEGMENTAL PAVING SUPERVISOR FOR LAST FEW VISITS. THIS IS THE FIRST VISIT WITH ME PREVOCATIONAL/REHABILITATION COUNSELOR FOR HER. PT CONSULT DAILY LAB (2) Atrial fibrillation Current Visit: No Status: Chronic (3) Right heart failure Current Visit: Yes Status: Acute Plan: from Moderate TR, has a fib and l atrial enlarged. Continue lasix start entresto bid. stop spironolactone. Prognosis poor she will always be symptomatic. Qualifiers: Heart failure chronicity: acute on chronic Qualified Code(s): I50.813 - Acute on chronic right heart failure
[2023-10-25] MEDS: Linaclotide [Linzess] 145 MCG Capsule PO SCH (21:00)
[2023-10-25] MEDS ORDERED: ATORVASTATIN 20 MG TAB PO SCH (21:00)
[2023-10-25] MEDS: SACUBITRIL/VALSARTAN 24/26 MG TAB PO SCH (21:14)
[2023-10-25] MEDS: DONEPEZIL HCL 5 MG TAB PO SCH (21:14)
[2023-10-25] MEDS: ATORVASTATIN 20 MG TAB PO SCH (21:15)
[2023-10-26 06:38] LABS: Albumin 3.2 g/dL (3.4-5.0); Magnesium 1.8 mg/dL (1.6-2.4); Phosphorus 2.6 mg/dL (2.5-4.9)
[2023-10-26] MEDS: MAGNESIUM SULFATE 1 gm IVPB 1 GM/100 ML BAG IV ONE (08:55)
[2023-10-26] MEDS ORDERED: HOME MED 1 EA UNK (Donepezil Hcl [Donepezil Hcl] 10 MG Tablet) PO SCH (09:00)
--- NOTE | 2023-10-26 22:06 | P.PN ---
Subjective Date of Service: 10/26/23 Chief Complaint: SHORT OF BREATH AND FATIGUE Subjective: Improving still complains a lot. No visible distress. Chronic anxiety. SHE IS A LOT BETTER STRONGER WALKED AROUND NURSES STATION . Review of Systems 10-point ROS is otherwise unremarkable General: Weakness Physical Examination - Vital Signs Temperature: 97.2 F Blood Pressure: 104/74 Pulse: 82 Respirations: 18 Pulse Ox (%): 99 - Physical Exam General: Oriented x3, Acute distress HEENT: Atraumatic, PERRLA, EOMI Neck: Supple, JVD not distended Respiratory: Clear to auscultation bilaterally, Normal air movement Cardiovascular: Regular rate/rhythm, Normal S1 S2 Gastrointestinal: Normal bowel sounds, No tenderness Musculoskeletal: No tenderness Integumentary: No rashes Neurological: Normal speech, Normal tone, Normal affect Lymphatics: No axilla or inguinal lymphadenopathy - Studies Medications List Reviewed: Yes Assessment And Plan - Current Problems (Diagnosis) (1) Acute on chronic diastolic heart failure Current Visit: No Status: Acute Plan: LASIX IV BID SPIRONOLACTONE DAILY. AVOID SALT IN FOOD. THIS SHOULD HELP. SHE HAS SEEN BLANKING PRESS OPERATOR FOR LAST FEW VISITS. THIS IS THE FIRST VISIT WITH ME FLARE BREAKER FOR HER. PT CONSULT DAILY LAB LOT BETTER ENTRESTO STARTED. (2) Atrial fibrillation Current Visit: No Status: Chronic (3) Right heart failure Current Visit: Yes Status: Acute Plan: from Moderate TR, has a fib and l atrial enlarged. Continue lasix start entresto bid. stop spironolactone. Prognosis poor she will always be symptomatic. Qualifiers: Heart failure chronicity: acute on chronic Qualified Code(s): I50.813 - Acute on chronic right heart failure
[2023-10-27 01:09] LABS: Specific Gravity 1.007 (1.005-1.030); Urine Bilirubin NEGATIVE (Negative); Urine Blood Negative (Negative); Urine Clarity Clear (Clear); Urine Color Colorless (Yellow); Urine Glucose NEGATIVE (Negative); Urine Ketones NEGATIVE (Negative); Urine Microscopic Reflex YN NO UMIC; Urine Nitrite NEGATIVE (Negative); Urine Protein NEGATIVE (Negative); Urine Urobilinogen Normal (Normal)
[2023-10-27 04:04] LABS: Albumin 3.1 g/dL (3.4-5.0); Magnesium 1.8 mg/dL (1.6-2.4)
[2023-10-27] MEDS: MAGNESIUM SULFATE 1 gm IVPB 1 GM/100 ML BAG IV ONE (05:33)
[2023-10-27 12:15] VITALS: BP 96/52; TEMP 98.2
[2023-10-27 14:40] VITALS: O2SAT 97
--- NOTE | 2023-10-27 18:15 | P.DS ---
Admission Date: 10/24/23 Discharge Date: 10/27/23 Disposition: DC HOME/HOME HEALTH CARE Discharge Condition: SERIOUS Reason for Admission: SHORT OF BREATH AND FATIGUE - Problems (1) Acute on chronic diastolic heart failure Status: Acute (2) Atrial fibrillation Status: Chronic (3) Right heart failure Status: Acute Qualifiers: Heart failure chronicity: acute on chronic Qualified Code(s): I50.813 - Acute on chronic right heart failure Brief History of Present Illness: JULIANA HAS CHF BY HISTORY WITH DIASTOLIC DYSFUNCTION AND EF OF 50%. SHE EATS CHIPS FOR SNACKS. I EXPLAINED TO DAUGHTER THAT EVEN A FEW CHIPS A DAY WILL TRIGGER CHF. SHE IS SHORT OF BREATH FOR 2 DAYS AND IS FATIGUED. I REVIEWED PREVIOUS RECORDS FROM [facility]. Hospital Course: JULIANA HAS CHF WITH A FIB, MODERATE TR AND MILD SYSTOLIC WITH DIASTOLIC DYSFUNCTION. SHE IMPROVES WITH IV DIURESIS. I ASKED DAUGHTER TO WATCH HER FOOD AND AVOID CHIPS THAT SHE EATS DAILY. I STARTED HER ON ENTRESTO AND STOPPED SPIRONOLACTONE. SHE HAS IMPROVED AND AMBULATED WELL. SHE IS STABLE TO GO HOME. FU IN OFFICE. Vital Signs/Physical Exam: Temp Pulse Resp BP Pulse Ox 98.2 F 72 17 96/52 L 99 10/27/23 12:00 10/27/23 12:00 10/27/23 12:00 10/27/23 12:00 10/27/23 12:00 Laboratory Data at Discharge: WBC 5.80 thou/uL (4.3-10.9) 10/25/23 06:07 Hgb 9.3 g/dL (12.0-15.0) L D 10/25/23 06:07 Hct 29.6 % (36.0-45.0) L 10/25/23 06:07 Plt Count 234 thou/uL (152-406) 10/25/23 06:07 PT 14.5 SECONDS (9.5-12.5) H 10/25/23 06:07 INR 1.33 10/25/23 06:07 APTT 29.8 SECONDS (24.3-36.9) 10/25/23 06:07 Sodium 134 mEq/L (136-145) L 10/27/23 03:27 Potassium 4.0 mEq/L (3.5-5.1) 10/27/23 03:27 BUN 17 mg/dL (7-18) 10/27/23 03:27 Creatinine 0.83 mg/dL (0.55-1.02) 10/27/23 03:27 Glucose 156 mg/dL (74-106) H 10/27/23 03:27 Phosphorus 3.0 mg/dL (2.5-4.9) 10/27/23 03:27 Magnesium 1.8 mg/dL (1.6-2.4) 10/27/23 03:27 Total Bilirubin 0.8 mg/dL (0.2-1.0) 10/25/23 06:07 AST 14 U/L (15-37) L 10/25/23 06:07 ALT 14 U/L (13-56) 10/25/23 06:07 Alkaline Phosphatase 71 U/L (45-117) D 10/25/23 06:07 Triglycerides 92 mg/dL (<150) 10/25/23 06:07 Cholesterol 96 mg/dL (<200) 10/25/23 06:07 HDL Cholesterol 29 mg/dL (40-60) L 10/25/23 06:07 Cholesterol/HDL Ratio 3.31 10/25/23 06:07 Home Medications: Albuterol Sulfate [Ventolin Hfa] 2 puff IH TID 09/03/23 Apixaban [Eliquis *] 2.5 mg PO BID 09/03/23 Atorvastatin Calcium [Lipitor*] 20 mg PO BEDTIME 09/03/23 Budesonide [Pulmicort] 0.25 mg IH BID 09/03/23 Docusate [Colace Cap] 100 mg PO DAILY 09/03/23 Donepezil HCl 10 mg PO DAILY 09/03/23 Duloxetine HCl [Cymbalta] 30 mg PO DAILY 09/03/23 Fexofenadine HCl 60 mg PO DAILY 09/03/23 Furosemide [Lasix*] 40 mg PO DAILY 09/03/23 Ipratropium/Albuterol Sulfate [Iprat-Albut 0.5-3(2.5) mg/3 ml] 3 ml IH Q6H 09/03/23 Linaclotide [Linzess] 145 mcg PO BEDTIME 09/03/23 Omeprazole [Prilosec] 40 mg PO DAILY 09/03/23 Sotalol HCl [Betapace*] 80 mg PO BID 6AM 6PM tab 09/13/23 Temazepam [Restoril*] 7.5 mg PO BEDTIME PRN PRN cap 09/13/23 Sacubitril/Valsartan [Entresto 24 mg-26 mg Tablet] 1 tab PO BID #60 tab 10/27/23 New Medications: Sacubitril/Valsartan [Entresto 24 mg-26 mg Tablet] 1 tab PO BID #60 tab Physician Discharge Instructions: Home Health: [facility] P:[phone] F:[phone] Followup: Wally Mejia MD [Primary Care Provider] - 1-2 Weeks (Call for appointment.)
== END 2023-10-27 14:08 | disposition home health service (06) | DRG 292 ==
LOC: ER 14:40 → ERHOLD 17:13 → 4TH 19:41
PROVIDERS: ADMIT Internal Medicine; ATTEND Internal Medicine
DX: I50.33 Acute on chronic diastolic (congestive) heart failure (principal); I48.20 Chronic atrial fibrillation, unspecified; F41.9 Anxiety disorder, unspecified; I07.1 Rheumatic tricuspid insufficiency; K21.9 Gastro-esophageal reflux disease without esophagitis; J44.9 Chronic obstructive pulmonary disease, unspecified; Z79.01 Long term (current) use of anticoagulants; Z86.73 Personal history of transient ischemic attack (TIA), and cerebral infarction without residual deficits; Z79.899 Other long term (current) drug therapy
CPT/HCPCS: 36415; 71045; 80048; 80053; 80061; 80069; 80076; 81003; 83735; 83880; 84443; 84484; 85025; 85610; 85730; 90732; 93005; 96374; 97116; 97161; 97530; 99285; J1940; J3475; J7613; J7634; J7644

== ENCOUNTER 2023-12-27 17:53 | Inpatient (IN) | payer BC ==
[2023-12-27] MEDS ORDERED: NA CHLORIDE 0.9% 500 ML ONE (18:23)
[2023-12-27 18:58] LABS: Absolute Basophils 0.1 K/uL (0-0.5); Absolute Eosinophils 0.2 K/uL (0-0.5); Absolute Lymphocytes (CBC) 1.3 K/uL (0.7-4.9); Absolute Monocytes 0.6 K/uL (0.1-1.3); Absolute Neutrophil 5.3 K/uL (1.8-8.0); Basophils % 0.9 % (0-1.3); Eosinophils % 3.1 % (0-4.4); Hematocrit 35.5 % (36.0-45.0); Hemoglobin 11.3 g/dL (12.0-15.0); Lymphocytes % 17.8 % (15.3-44.8); MCH 28.7 pg (27.0-35.0); MCHC 31.9 g/dL (32.0-36.0); MCV 89.8 fL (80-100); Neutrophils % 70.2 % (41.7-73.7); Nucleated Red Blood Cells % 0.2 % (0-0); Platelets 218 thou/uL (152-406); RBC Red Blood Cell Count 3.95 M/uL (3.86-4.86); Red Cell Distribution Width 17.6 % (12.1-15.2)
[2023-12-27 19:07] LABS: PTT, Activated Partial Thromb 29.9 SECONDS (24.3-36.9)
[2023-12-27 19:08] LABS: PT Prothrombin Time 12.2 SECONDS (9.4-12.5); Protime INR 1.11
--- NOTE | 2023-12-27 19:12 | RAD REPORT ---
EXAM DESCRIPTION: RAD - Chest Single View - 12/27/2023 7:02 pm CLINICAL HISTORY: COUGH Chest pain. COMPARISON: <Comparisons> FINDINGS: Portable technique limits examination quality. The lungs are emphysematous but grossly clear. The heart is moderately enlarged with a multi lead pac er device. No displaced fractures. IMPRESSION: Mild CHF pattern.
[2023-12-27 19:13] LABS: Albumin 3.2 g/dL (3.4-5.0); Albumin/Globulin Ratio 0.8 (1.1-1.8); Anion Gap 8.3 mEq/L (5.0-15.0); Bilirubin Total 0.5 mg/dL (0.2-1.0); Globulin 4.2 g/dL (2.3-3.5); Potassium 4.3 mEq/L (3.5-5.1); Protein, Total 7.4 g/dL (6.4-8.2)
[2023-12-27 19:38] LABS: Specific Gravity 1.011 (1.005-1.030); Sqamous Epithelial <5 /HPF (None Seen); Urine Bacteria None Seen /HPF (<20); Urine Bilirubin NEGATIVE (Negative); Urine Blood 1+ (Negative); Urine Clarity Extremely Turbid (Clear); Urine Color Light-Yellow (Yellow); Urine Culture Reflex Order NOT NEEDED; Urine Glucose 1+ (Negative); Urine Ketones NEGATIVE (Negative); Urine Microscopic Reflex YN ORDER UMIC; Urine Nitrite NEGATIVE (Negative); Urine Protein NEGATIVE (Negative); Urine RBC <5 /HPF (None Seen); Urine Urobilinogen Normal (Normal); Urine pH 5.5 (5.0-7.0)
[2023-12-27] MEDS ORDERED: NOREPINEPHRINE BITARTRATE/D5W 4 MG/250 ML BAG IV ONE (19:54)
[2023-12-27] MEDS ORDERED: CEFTRIAXONE 1000 MG/VIAL ONE (20:16)
[2023-12-27] MEDS ORDERED: NA CHLORIDE 0.9% 250 ML ONE (20:17)
[2023-12-27] MEDS ORDERED: AZITHROMYCIN 500 MG INJ IVPB ONE (20:17)
--- NOTE | 2023-12-27 20:32 | ER ---
Nurse's Notes [facility] Name: Kori Saenz Age: 83 yrs Sex: Female : 1940 Arrival Date: 12/27/2023 Time: 17:53 Bed 17 Private MD: Diagnosis: Hypotension, unspecified;Heart failure, unspecified;Pneumonia, unspecified organism;Severe sepsis with septic shock Presentation: 12/26 18:10 Chief complaint: Patient states: Very weak, hard to wake up today. Cough for 4 days. ll1 Coronavirus screen: Client denies travel out of the [place] in the last 14 days. cough unrelated to allergies, difficulty breathing, fatigue, headache, Client presents with at least one sign or symptom that may indicate coronavirus-19. Standard/surgical mask placed on the client. Ebola Screen: Patient denies travel to an Ebola-affected area in the 21 days before illness onset. Initial Sepsis Screen: Does the patient meet any 2 criteria? No. Patient's initial sepsis screen is negative. Does the patient have a suspected source of infection? No. Patient's initial sepsis screen is negative. Risk Assessment: Do you want to hurt yourself or someone else? Patient reports no desire to harm self or others. Onset of symptoms was December 24, 2023. 18:10 Method Of Arrival: Wheelchair ll1 18:10 Acuity: DARION 2 ll1 Historical: - Allergies: 18:05 No Known Allergies; aa5 - PMHx: 18:05 a-fib; Anemia; Chronic obstructive lung disease; CVA; Dementia; Diverticulitis; GERD; aa5 insomnia; Migraines; - Immunization history:: Adult Immunizations up to date. - Infectious Disease History:: Denies. - Social history:: Smoking status: Patient denies any tobacco usage or history of. Screenin:46 [facility] ED Fall Risk Assessment (Adult) History of falling in the last 3 months, mb9 including since admission No falls in past 3 months (0 pts) Confusion or Disorientation No (0 pts) Intoxicated or Sedated Impaired Gait No (0 pts) Mobility Assist Device Used No (0 pt) Altered Elimination No (0 pt) Score/Fall Risk Level 0 - 2 = Low Risk Oriented to surroundings, Maintained a safe environment, Educated pt \T\ family on fall prevention, incl call for assistance when getting out of bed. Abuse screen: Denies threats or abuse. Nutritional screening: No deficits noted. Tuberculosis screening: No symptoms or risk factors identified. Assessment: 18:47 General: Appears in no apparent distress. Behavior is calm, cooperative. Pain: Denies mb9 pain. Neuro: Level of Consciousness is awake, alert, obeys commands, Oriented to person, place, time, situation, Appropriate for age. Cardiovascular: Heart tones S1 S2 present Patient's skin is warm and dry. Respiratory: Reports shortness of breath cough that is Airway is patent Respiratory effort is even, unlabored, Respiratory pattern is regular, symmetrical, Breath sounds are coarse bilaterally. GI: Abdomen is flat, non-distended, Bowel sounds present X 4 quads. Abd is soft Abdomen is tender to palpation in suprapubic area. : Reports burning with urination. EENT: No signs and/or symptoms were reported regarding the EENT system. Derm: Skin is fragile, is thin, Skin is dry, Skin is pale, Skin temperature is cool. Musculoskeletal: Range of motion: intact in all extremities. 18:48 Neuro: Reports weakness. mb9 19:00 Reassessment: patient states she is not dizzy or lightheaded. General: Appears in no tm6 apparent distress. Neuro: Level of Consciousness is awake, alert, obeys commands, Oriented to person, place, time, situation. 21:17 Reassessment: report called to Diana HERNANDEZ in ICU. tm6 Vital Signs: 18:10 BP 82 / 46; Pulse 75; Resp 16; Temp 97.3; Pulse Ox 97% on R/A; Weight 59.87 kg; Height ll1 5 ft. 6 in. ; Pain 5/10; 18:21 BP 102 / 54; Pulse 76; Resp 22; Pulse Ox 95% ; ms3 18:48 BP 105 / 53; Pulse 93; Resp 22; Pulse Ox 96% on R/A; mb9 18:52 BP 92 / 70; Pulse 80; Resp 20; Pulse Ox 95% ; mb9 19:05 BP 95 / 54; Pulse 87; Resp 22; Pulse Ox 95% on R/A; mb9 19:15 BP 102 / 59; Pulse 94; MAP 70 mmHg; tm6 19:20 BP 106 / 52; Pulse 88; MAP 63 mmHg; tm6 19:25 BP 72 / 50; Pulse 80; MAP 55 mmHg; tm6 19:30 BP 71 / 47; Pulse 77; MAP 53 mmHg; tm6 19:35 BP 75 / 43; Pulse 80; MAP 51 mmHg; tm6 20:08 BP 121 / 59; Pulse 72; Pulse Ox 96% on R/A; MAP 72 mmHg; Pain 0/10; tm6 20:18 BP 115 / 54; Pulse 77; MAP 68 mmHg; tm6 20:28 BP 87 / 41; Pulse 74; MAP 52 mmHg; tm6 20:40 BP 85 / 56; Pulse 73; MAP 62 mmHg; tm6 20:45 BP 101 / 49; Pulse 75; MAP 60 mmHg; tm6 20:50 BP 111 / 56; Pulse 73; MAP 70 mmHg; tm6 21:00 BP 110 / 49; Pulse 74; MAP 61 mmHg; tm6 21:15 BP 109 / 56; Pulse 74; MAP 70 mmHg; tm6 21:30 BP 123 / 55; Pulse 73; MAP 72 mmHg; tm6 18:10 Body Mass Index 21.31 (59.87 kg, 167.64 cm) ll1 18:10 Pain Scale: Adult ll1 20:08 Pain Scale: Adult tm6 ED Course: 17:55 Patient arrived in ED. mg5 18:01 Marko Streeter DO is Attending Physician. ms3 18:06 Arm band placed on. aa5 18:11 Triage completed. ll1 18:11 Patient placed in an exam room, on a stretcher. ll1 18:24 Heidi Farah, RN is Primary Nurse. mb9 18:27 Initial lab(s) drawn, by me, sent to lab. First set of blood cultures drawn by me. mb9 18:35 Inserted saline lock: 18 gauge in right antecubital area, using aseptic technique. mb9 Blood collected. 18:35 Second set of blood cultures drawn by me. mb9 18:40 EKG done, by ED staff, reviewed by Marko Streeter DO. Inserted. mb9 18:46 Placed in gown. Bed in low position. Call light in reach. Side rails up X 1. Provided mb9 Education on: press call light if needing anything. Client placed on continuous cardiac and pulse oximetry monitoring. NIBP monitoring applied. front desk monitor on. Door closed. Noise minimized. Warm blanket given. Pillow given. 19:03 Chest Single View XRAY In Process Unspecified. EDMS 19:07 Report given to DAVID Lowe. mb9 19:07 Inserted saline lock: 18 gauge in left antecubital area, using aseptic technique. mb9 19:28 Urinalysis w/ reflexes Sent. tm6 19:30 Notified ED physician of vital signs. tm6 20:31 Wally Mejia MD is Hospitalizing Provider. ms3 22:43 No provider procedures requiring assistance completed. Patient admitted, IV remains in tm6 place. Administered Medications: 18:38 Drug: NS 0.9% IV 500 ml IV at bolus once Route: IV; Rate: bolus; Site: right 9 antecubital; 19:06 Follow up: Response: No adverse reaction; IV Status: Completed infusion mb9 20:06 Drug: Norepinephrine IV 0.1 mcg/kg/min IV at calculated rate See Administration tm6 Instructions; (Standard concentration 4 mg / 250 mL D5W); Recommended max rate 3 mcg/kg/min; Titrate 0.05 mcg/kg/min as often as every 5 minutes to achieve goal (see titration policy); Goal parameter MAP greater than 65 mmHg. Route: IV; Rate: calculated rate; Site: left antecubital; 20:18 Follow up: Rate change 0.05 mcg/kg/min tm6 20:30 Follow up: Rate change 0.1 mcg/kg/min tm6 20:30 Drug: Rocephin IV 1 grams IV at calculated rate once; Given slow IV push per pharmacy tm6 instructions Route: IV; Rate: calculated rate; Site: right antecubital; 20:30 Drug: AZITHromycin IVPB 500 mg IVPB once over 1 hrs; (mix in 250 mL NS) Route: IVPB; tm6 Infused Over: 1 hrs; Site: right antecubital; Medication: 19:07 VIS not applicable for this client. mb9 Outcome: 20:31 Decision to Hospitalize by Provider. ms3 22:43 Admitted to ICU accompanied by nurse, accompanied by tech, family with patient, via tm6 stretcher, room 1, on monitor, with chart, 22:43 Condition: stable 22:43 Instructed on the need for admit, 22:43 Patient left the ED. tm6 Signatures: Dispatcher [employer] EDMS Eliz Ha RN RN aa5 Becky Georges RN RN ll1 Marko Streeter, DO DO ms3 Heidi Farah RN RN mb9 Miriam Woods mg5 Chrissy George RN RN tm6 Corrections: (The following items were deleted from the chart) 18:48 18:47 Respiratory: Airway is patent Respiratory effort is even, unlabored, Respiratory mb9 pattern is regular, symmetrical, Breath sounds are coarse bilaterally. mb9 19:08 19:05 BP 75 / 43; Pulse 87bpm; Resp 22bpm; Pulse Ox 95% RA; mb9 mb9 21:43 21:40 BP 123 / 55; Pulse 73bpm; MAP 72 mmHg; tm6 tm6
--- NOTE | 2023-12-27 20:32 | EDPHYS ---
Physician Documentation [facility] Name: Kori Saenz Age: 83 yrs Sex: Female : 1940 Arrival Date: 12/27/2023 Time: 17:53 Bed 17 Private MD: ED Physician Marko Streeter HPI: 12/26 21:58 This 83 yrs old Female presents to ER via Wheelchair with complaints of General ms3 Weakness, Urinary Problem, Cough. 21:58 83-year-old female with past medical history of atrial fibrillation, anemia, COPD, ms3 stroke, dementia, diverticulitis, GERD, insomnia presents to the emergency department with her daughter for generalized weakness and cough that have been ongoing for 3 to 4 days. Patient's daughter notes over the last 3 days patient has had burning with urination. Patient denies pain at this time. Patient denies fevers.. Historical: - Allergies: 18:05 No Known Allergies; aa5 - PMHx: 18:05 a-fib; Anemia; Chronic obstructive lung disease; CVA; Dementia; Diverticulitis; GERD; aa5 insomnia; Migraines; - Immunization history:: Adult Immunizations up to date. - Infectious Disease History:: Denies. - Social history:: Smoking status: Patient denies any tobacco usage or history of. ROS: 21:58 Cardiovascular: Negative for chest pain, and palpitations. Abdomen/GI: Negative for ms3 abdominal pain, nausea, vomiting, diarrhea, and constipation, 21:58 Constitutional: Positive for fatigue, Generalized weakness, 21:58 Respiratory: Positive for cough, 21:58 : Positive for Dysuria, Exam: 20:35 ECG was reviewed by the Attending Physician. ms3 21:58 Constitutional: This is a well developed, well nourished patient who is awake, alert, ms3 and in no acute distress. Neck: Trachea midline, no cervical lymphadenopathy. Supple, full range of motion without nuchal rigidity, or vertebral point tenderness. No Meningismus. Chest/axilla: Normal chest wall appearance and motion. Nontender with no deformity. Cardiovascular: Regular rate and rhythm with a normal S1 and S2. No gallops, murmurs, or rubs. Normal PMI, no JVD. No pulse deficits. Respiratory: Lungs have equal breath sounds bilaterally, clear to auscultation and percussion. No rales, rhonchi or wheezes noted. No increased work of breathing, no retractions or nasal flaring. Abdomen/GI: Soft, non-tender, with normal bowel sounds. No distension or tympany. No guarding or rebound. No evidence of tenderness throughout. Skin: Warm, dry with normal turgor. Normal color with no rashes, no lesions, and no evidence of cellulitis. Vital Signs: 18:10 BP 82 / 46; Pulse 75; Resp 16; Temp 97.3; Pulse Ox 97% on R/A; Weight 59.87 kg; Height ll1 5 ft. 6 in. ; Pain 5/10; 18:21 BP 102 / 54; Pulse 76; Resp 22; Pulse Ox 95% ; ms3 18:48 BP 105 / 53; Pulse 93; Resp 22; Pulse Ox 96% on R/A; mb9 18:52 BP 92 / 70; Pulse 80; Resp 20; Pulse Ox 95% ; mb9 19:05 BP 95 / 54; Pulse 87; Resp 22; Pulse Ox 95% on R/A; mb9 19:15 BP 102 / 59; Pulse 94; MAP 70 mmHg; tm6 19:20 BP 106 / 52; Pulse 88; MAP 63 mmHg; tm6 19:25 BP 72 / 50; Pulse 80; MAP 55 mmHg; tm6 19:30 BP 71 / 47; Pulse 77; MAP 53 mmHg; tm6 19:35 BP 75 / 43; Pulse 80; MAP 51 mmHg; tm6 20:08 BP 121 / 59; Pulse 72; Pulse Ox 96% on R/A; MAP 72 mmHg; Pain 0/10; tm6 20:18 BP 115 / 54; Pulse 77; MAP 68 mmHg; tm6 20:28 BP 87 / 41; Pulse 74; MAP 52 mmHg; tm6 20:40 BP 85 / 56; Pulse 73; MAP 62 mmHg; tm6 20:45 BP 101 / 49; Pulse 75; MAP 60 mmHg; tm6 20:50 BP 111 / 56; Pulse 73; MAP 70 mmHg; tm6 21:00 BP 110 / 49; Pulse 74; MAP 61 mmHg; tm6 21:15 BP 109 / 56; Pulse 74; MAP 70 mmHg; tm6 21:30 BP 123 / 55; Pulse 73; MAP 72 mmHg; tm6 18:10 Body Mass Index 21.31 (59.87 kg, 167.64 cm) ll1 18:10 Pain Scale: Adult ll1 20:08 Pain Scale: Adult tm6 MDM: 18:20 Patient medically screened. ms3 20:01 ED course: Patient meets septic shock criteria at this time. A. Possible PNA B. HR >90, ms3 RR>20. C. SBP <90 x2. Sepsis order set utilized. Blood cultures and antibiotics ordered. Patient will be given 500 mL NS bolus instead of 30 ml/kg IVF secondary to heart failure and fluid overload.. 20:31 ED course: Sepsis re-evaluation completed. ms3 21:58 Differential Diagnosis: Influenza Upper Respiratory Infection Pneumonia Other UTI ms3 versus heart failure versus myocardial infarction. Data reviewed: vital signs, nurses notes, lab test result(s), EKG, radiologic studies, and as a result, I will admit patient. Consideration of Admission/Observation Patient was admitted/placed on observation. Management of patient was discussed with the following: Hospitalist: Dr Mejia. Patient is DNR. Hold off on central line at this time. Gentle hydration and IV Abx. Admit to ICU. I considered the following discharge prescriptions or medication management in the emergency department Medications were administered in the Emergency Department. See MAR. Independent interpretation of the following test(s) in the Emergency Department EKG: See my EKG interpretation above. Historians other than the Patient: Daughter/Son: Patient's daughter. Counseling: I had a detailed discussion with the patient and/or guardian regarding the historical points, exam findings, and any diagnostic results supporting the discharge/admit diagnosis, lab results, radiology results, the need for further work-up and treatment in the hospital. 12/26 18:20 Order name: Blood Culture Adult (2) ms3 12/26 18:20 Order name: CBC with Diff; Complete Time: 19:20 ms3 12/26 18:20 Order name: CMP; Complete Time: 19:20 ms3 12/26 18:20 Order name: Lactate w/ 2H reflex if indic.; Complete Time: 19:20 ms3 12/26 18:20 Order name: Protime (+inr); Complete Time: 19:20 ms3 12/26 18:20 Order name: Ptt, Activated; Complete Time: 19:20 ms3 12/26 18:20 Order name: Urinalysis w/ reflexes; Complete Time: 19:43 ms3 12/26 19:21 Order name: BNP; Complete Time: 20:29 ms3 12/26 19:44 Order name: Troponin High Sensitivity; Complete Time: 21:02 ms3 12/26 21:10 Order name: CBC with Automated Diff EDMS 12/26 21:10 Order name: CBC with Automated Diff EDMS 12/26 21:10 Order name: Comprehensive Metabolic Panel EDMS 12/26 21:10 Order name: Comprehensive Metabolic Panel EDMS 12/26 18:20 Order name: Chest Single View XRAY; Complete Time: 19:20 ms3 12/26 18:20 Order name: EKG; Complete Time: 18:21 ms3 12/26 18:20 Order name: Accucheck; Complete Time: 18:45 ms3 12/26 18:20 Order name: Cardiac monitoring; Complete Time: 18:45 ms3 12/26 18:20 Order name: EKG - Nurse/Tech; Complete Time: 18:45 ms3 12/26 18:20 Order name: IV Saline Lock - Large Bore; Complete Time: 18:45 ms3 12/26 18:20 Order name: Labs collected and sent; Complete Time: 18:45 ms3 12/26 18:20 Order name: O2 Per Protocol; Complete Time: 18:45 ms3 12/26 18:20 Order name: O2 Sat Monitoring; Complete Time: 18:45 ms3 12/26 18:20 Order name: Vital Signs; Complete Time: 18:45 ms3 EC:35 Rate is 74 beats/min. Rhythm is regular. QRS [place] is Normal. QRS interval is normal. ms3 Clinical impression: Atrial Pacing. Interpreted by me. Reviewed by me. Administered Medications: 18:38 Drug: NS 0.9% IV 500 ml IV at bolus once Route: IV; Rate: bolus; Site: right mb9 antecubital; 19:06 Follow up: Response: No adverse reaction; IV Status: Completed infusion mb9 20:06 Drug: Norepinephrine IV 0.1 mcg/kg/min IV at calculated rate See Administration tm6 Instructions; (Standard concentration 4 mg / 250 mL D5W); Recommended max rate 3 mcg/kg/min; Titrate 0.05 mcg/kg/min as often as every 5 minutes to achieve goal (see titration policy); Goal parameter MAP greater than 65 mmHg. Route: IV; Rate: calculated rate; Site: left antecubital; 20:18 Follow up: Rate change 0.05 mcg/kg/min tm6 20:30 Follow up: Rate change 0.1 mcg/kg/min tm6 20:30 Drug: Rocephin IV 1 grams IV at calculated rate once; Given slow IV push per pharmacy tm6 instructions Route: IV; Rate: calculated rate; Site: right antecubital; 20:30 Drug: AZITHromycin IVPB 500 mg IVPB once over 1 hrs; (mix in 250 mL NS) Route: IVPB; tm6 Infused Over: 1 hrs; Site: right antecubital; Disposition Summary: 12/27/23 20:31 Hospitalization Ordered Notes: Hospitalization Status: Inpatient Admission ms3 Provider: Wally Mejia ms3 Location: Intensive Care Unit ms3 Condition: Stable ms3 Problem: new ms3 Symptoms: are unchanged ms3 Bed/Room Type: Standard ms3 Room Assignment: 1-(12/27/23 20:38) [facility] Diagnosis - Hypotension, unspecified ms3 - Heart failure, unspecified ms3 - Pneumonia, unspecified organism ms3 - Severe sepsis with septic shock ms3 Forms: - Medication Reconciliation Form ms3 - SBAR form ms3 - Leadership Thank You Letter ms3 Critical care time excluding procedures: 20:35 Critical care time: Bedside Care: 40 minutes, Consultation: 10 minutes, Family ms3 Intervention: 10 minutes. Total time: 60 minutes Signatures: Dispatcher [employer] EDEliz Espinoza, RN RN aa5 Becky Georges RN RN ll1 Marko Streeter DO DO ms3 Heidi Farah RN RN [id number] Ann Pugh [facility] Chrissy George RN RN tm6 Corrections: (The following items were deleted from the chart) 18:21 18:21 BLOOD CULTURE*+BA.LAB.BRZ ordered. EDMS EDMS 18:21 18:21 CBC+H.LAB.BRZ ordered. EDMS EDMS 18:21 18:21 COMPREHENSIVE METABOLIC PANEL+C.LAB.BRZ ordered. EDMS EDMS 18:21 18:21 LACTATE+C.LAB.BRZ ordered. EDMS EDMS 18:21 18:21 PROTIME (+INR)+COAG.LAB.BRZ ordered. EDMS EDMS 18:21 18:21 PTT, ACTIVATED+COAG.LAB.BRZ ordered. EDMS EDMS 18:21 18:21 Urinalysis+U.LAB.BRZ ordered. EDMS EDMS 19:27 19:21 Celis ordered. ms3 tm6 20:38 20:31 ms3 kmf
[2023-12-27] MEDS ORDERED: ALBUTEROL 2.5 MG/3 ML NEB SOL NEB PRN (21:03)
[2023-12-27] MEDS: NOREPINEPHRINE 4 MG in D5W 250 ML IV SCH (22:45)
[2023-12-27] MEDS: NA CHLORIDE 0.9% 1,000 ML IV SCH (23:22)
[2023-12-27 23:31] VITALS: BMI 21.9
[2023-12-28] MEDS: ACETAMINOPHEN 500 MG TAB PO PRN (00:04)
[2023-12-28] MEDS: IPRATROPIUM BROM 0.5MG/2.5ML NEB SCH (00:23)
[2023-12-28 05:22] LABS: Absolute Eosinophils 0.2 K/uL (0-0.5); Absolute Lymphocytes (CBC) 1.4 K/uL (0.7-4.9); Absolute Monocytes 0.4 K/uL (0.1-1.3); Absolute Neutrophil 2.8 K/uL (1.8-8.0); Basophils % 0.9 % (0-1.3); Eosinophils % 3.6 % (0-4.4); Hematocrit 28.6 % (36.0-45.0); Hemoglobin 9.3 g/dL (12.0-15.0); Lymphocytes % 29.2 % (15.3-44.8); MCHC 32.5 g/dL (32.0-36.0); MCV 89.3 fL (80-100); MPV 7.9 fL (7.6-11.3); Monocytes % 9.1 % (3.3-12.3); Neutrophils % 57.2 % (41.7-73.7); Nucleated Red Blood Cells % 0.1 % (0-0); Platelets 152 thou/uL (152-406); Red Cell Distribution Width 16.8 % (12.1-15.2)
[2023-12-28 05:35] LABS: Albumin 2.5 g/dL (3.4-5.0); Albumin/Globulin Ratio 0.7 (1.1-1.8); Anion Gap 6.1 mEq/L (5.0-15.0); Bilirubin Total 0.5 mg/dL (0.2-1.0); Globulin 3.4 g/dL (2.3-3.5); Potassium 4.1 mEq/L (3.5-5.1); Protein, Total 5.9 g/dL (6.4-8.2)
[2023-12-28] MEDS: ENOXAPARIN 40 MG/0.4 ML SQ SCH (07:56)
[2023-12-28] MEDS: CEFTRIAXONE 1,000 MG in NA CHLORIDE 0.9% 50 ML IVPB SCH (07:56)
[2023-12-28] MEDS: COSYNTROPIN 0.25 MG VIAL IV ONE (07:56)
--- NOTE | 2023-12-28 11:44 | P.HP ---
Patient History Date of Service: 12/28/23 Reason for admission: weak, fatigued, low bp History of Present Illness: Kori Saenz is 83 years old lady with mild chf with normal EF done in August. She comes with weakness and low BP. She required Levophed to help BP and IV fluids. She has no signs of infection. No burning at urination, cough, fever etc. She is given many meds for CHF by agent telegrapher. Allergies No Known Allergies Allergy (Unverified 09/02/23 19:26) Home medications list reviewed: Yes Home Medications: Apixaban [Eliquis] 2.5 mg PO BID 12/27/23 Atorvastatin Calcium [Lipitor] 20 mg PO BEDTIME 12/27/23 Budesonide [Pulmicort] 1 puff IH BID 12/27/23 Bupropion HCl [Wellbutrin Sr] 100 mg PO DAILY 12/27/23 Docusate Sodium 100 mg PO DAILY 12/27/23 Donepezil HCl [Aricept] 10 mg PO DAILY 12/27/23 Duloxetine HCl [Cymbalta] 30 mg PO DAILY 12/27/23 Fluticasone/Umeclidin/Vilanter [Trelegy Ellipta 100-62.5-25] 1 each IH DAILY 12/27/23 Furosemide [Lasix] 40 mg PO DAILY 12/27/23 Linaclotide [Linzess] 145 mcg PO DAILY 12/27/23 Metformin HCl [Glucophage] 500 mg PO BIDWM 12/27/23 Omeprazole [Prilosec] 40 mg PO DAILY 12/27/23 Sacubitril/Valsartan [Entresto 24 mg-26 mg Tablet] 1 tab PO BID 12/27/23 Sotalol HCl [Betapace] 80 mg PO BID 12/27/23 Spironolactone [Aldactone] 25 mg PO DAILY 12/27/23 Trazodone HCl [Desyrel] 100 mg PO BEDTIME 12/27/23 - Past Medical/Surgical History Has patient received pneumonia vaccine in the past: Yes Diabetic: No -: Afib -: COPD -: Diverticulitis -: GERD -: migraines -: CVA -: Pacer -: Watchman - Family History Mother -: Hypertension Brother -: Hypertension, Cancer Sister -: Hypertension, Cancer Father -: Cancer - Social History Smoking Status: Former smoker Alcohol use: No CD- Drugs: No Caffeine use: Yes Place of Residence: Home Review of Systems 10-point ROS is otherwise unremarkable Physical Examination - Vital Signs Temperature: 96.9 F Blood Pressure: 121/62 Pulse: 70 Respirations: 18 Pulse Ox (%): 98 - Physical Exam General: Alert, In no apparent distress, Mild distress HEENT: Atraumatic, PERRLA, Mucous membr. moist/pink, EOMI, Sclerae nonicteric Neck: Supple, 2+ carotid pulse no bruit, No LAD, Without JVD or thyroid abnormality Respiratory: Clear to auscultation bilaterally, Normal air movement Cardiovascular: Regular rate/rhythm, Normal S1 S2 Gastrointestinal: Normal bowel sounds, No tenderness Musculoskeletal: No tenderness Integumentary: No rashes Neurological: Normal gait, Normal speech, Normal strength at 5/5 x4 extr, Normal tone, Normal affect Lymphatics: No axilla or inguinal lymphadenopathy - Studies Laboratory Data (last 24 hrs) 12/27/23 12/27/23 12/27/23 18:41 18:41 18:41 WBC 7.50 Hgb 11.3 L Hct 35.5 L Plt Count 218 PT 12.2 INR 1.11 APTT 29.9 Sodium 133 L Potassium 4.3 BUN 16 Creatinine 1.28 H Glucose 365 H Total Bilirubin 0.5 AST 11 L ALT 19 Alkaline Phosphatase 90 Assessment and Plan - Problems (Diagnosis) (1) Hypotension Current Visit: Yes Status: Acute Plan: THERE IS NO SIGN OF INFECTION. SHE HAS NORMAL PROCALCITONIN, NORMAL WBC COUNT AND NO SYMPTOMS OF ANY INFECTION. I THINKS SHE IS JUST OVERTREATED WITH MEDICINES. ONCE BP COMES UP TO NORMAL, I WILL RESUME SMALLER DOSE OF LASIX AND SPIRONOLACTONE. I WILL STOP ENTRESTO SHE IS NOT ABLE TO TOLERATE. URINE CULTURE WAS NOT SENT FROM ER. UA SHOWS NO MAJOR INFECTION. AMBULATE ON THE FLOOR. MAY GO HOME IN AM. (2) Presence of Watchman left atrial appendage closure device Current Visit: Yes Status: Chronic (3) Atrial fibrillation Current Visit: No Status: Chronic Plan: SHE HAS WATCHMAN AND SHE WILL BE TAKEN OFF ELIQUIS. STABLE WITH GUARDED PROGNOSIS. - Advance Directives Does patient have a Living Will: Yes Does patient have a Durable POA for Healthcare: No
[2023-12-28 14:15] LABS: Specific Gravity 1.024 (1.005-1.030); Urine Bilirubin NEGATIVE (Negative); Urine Blood Negative (Negative); Urine Clarity Clear (Clear); Urine Color Light-Yellow (Yellow); Urine Glucose 4+ (Over) (Negative); Urine Ketones NEGATIVE (Negative); Urine Microscopic Reflex YN NO UMIC; Urine Nitrite NEGATIVE (Negative); Urine Protein NEGATIVE (Negative); Urine Urobilinogen Normal (Normal)
--- NOTE | 2023-12-28 14:33 | EKG ---
Test Date: 2023-12-27 Test Time: 18:40:01 Political Science Professor: MB MEASUREMENT RESULTS: Intervals: Rate: 74 NE: 160 QRSD: 132 QT: 458 QTc: 508 [place]: P: 57 NE: 160 QRS: 20 T: 46 INTERPRETIVE STATEMENTS: Atrial-paced rhythm Nonspecific intraventricular block Abnormal ECG Compared to ECG 10/24/2023 14:44:51 Myocardial infarct finding no longer present ST (T wave) deviation no longer present Electronically Signed On 12-28-23 14:32:17 CDT by Nahum Loera
[2023-12-28] MEDS: BUDESONIDE 0.25 MG/2 ML NEB IH SCH (19:00)
[2023-12-28] MEDS: SOTALOL HCL 80 MG TAB PO SCH (19:44)
[2023-12-28] MEDS: APIXABAN 2.5 MG TABLET PO SCH (19:44)
[2023-12-28] MEDS: TRAZODONE 50 MG TABLET PO SCH (19:44)
[2023-12-28] MEDS: ATORVASTATIN 20 MG TAB PO SCH (19:44)
[2023-12-28] MEDS: AZITHROMYCIN IV 500 MG in NA CHLORIDE 0.9% 250 ML IVPB SCH (20:22)
[2023-12-28] MEDS: NA CHLORIDE 0.9% 1,000 ML IV SCH (21:27)
[2023-12-28] MEDS: BENZONATATE 100 MG CAP PO PRN (21:39)
[2023-12-29] MEDS: Levofloxacin500mg IV 500 MG/100 ML BAG IV SCH (08:00)
[2023-12-29] MEDS: DOCUSATE NA 100 MG CAP PO SCH (08:24)
[2023-12-29] MEDS: DONEPEZIL HCL 5 MG TAB PO SCH (08:24)
[2023-12-29] MEDS: DULOXETINE 30 MG CAP PO SCH (08:24)
[2023-12-29] MEDS: UMECLIDIN IH SCH (08:38)
[2023-12-29] MEDS: FLUTICASONE IH SCH (08:38)
[2023-12-29] MEDS: BUPROPION HCL 100 MG PO SCH (08:38)
[2023-12-29] MEDS: VILANTER IH SCH (08:38)
[2023-12-29] MEDS: AMOX/K CLAV 500 MG TAB PO SCH (10:14)
--- NOTE | 2023-12-29 10:18 | RAD REPORT ---
EXAM DESCRIPTION: CT - Thorax W/ Con - 12/29/2023 9:53 am CLINICAL HISTORY: congestion,SOB COMPARISON: Chest For Pe Angio dated 09/02/2023 TECHNIQUE: CT scan of the chest was obtained with IV contrast. All CT scans are performed using dose optimization technique as appropriate and may include automated exposure control or mA/KV adjustment according to patient size. FINDINGS: Chest Wall: No suspicious thyroid nodules or pathologic lymphadenopathy. Left upper chest wall pacemaker. Lungs: Small areas of consolidation present in the dependent aspect of the right and left upper lobes . Some other patchy areas of mild consolidation and nodularity in the lung bases and right middle lob e. Scattered areas of micronodularity. Pleura: Pleural effusions are small and decreased in size from prior. Mediastinum/aries: No pathologic lymphadenopathy. Mild circumferential thickened distal esophagus . Pulmonary arteries/Aorta: No filling defect identified. No aortic aneurysm. Enlarged main pulmonary a rtery. Heart: No significant pericardial effusion. Cardiomegaly. Atrial appendage occlusion device. Upper abdomen: No acute abnormality.Unchanged left adrenal nodule measuring 16 mm. This has indetermi herman attenuation values. The left adrenal nodule which can be further evaluated with a [facility] or MRI if clinically indicated. Bones: No acute abnormality. Remote T12 compression fracture. IMPRESSION: Bilateral airspace disease with a mix of mild consolidation, nodularity, and micronodula rity. Pulmonary edema identified on the prior CT has improved. The residual findings could indicate a nonspecific infectious or inflammatory process including chronic/ indolent sources such as KADIE infec tion.
--- NOTE | 2023-12-29 17:36 | P.PN ---
Subjective Date of Service: 12/29/23 Chief Complaint: COUGH, BP IS BETTER Subjective: Improving JULIANA HAS HAD COUGH AND YELLOW SPUTUM. DAUGHTER WAS TOLD SHE HAS PNEUMONIA BY ER BUT CT DONE TODAY SHOWS CHRONIC INFLAMMATORY CHANGES WITH NODULES LIKE IN [place]. SHE HAS HAD HISTORY OF CHF DIAGNOSIS BUT WITH MANY MEDS HER BP DROPPED. I STOPPED ENTRESTO AND REDUCED LASIX AND RUTHY. SHE IS GIVEN ABX SHE HAS YELLOW SPUTUM. UA IS NEGATIVE. ACTH STIM TEST IS NEGATIVE. SHE IS OFF LEVOPHED FOR 24 HOURS AND IS STABLE TO GO TO FLOOR. Review of Systems 10-point ROS is otherwise unremarkable General: Weakness Physical Examination - Vital Signs Temperature: 97.2 F Blood Pressure: 114/61 Pulse: 78 Respirations: 18 Pulse Ox (%): 91 - Physical Exam General: Oriented x3, Oriented x2, Mild distress HEENT: Atraumatic, PERRLA, EOMI Neck: Supple, JVD not distended Respiratory: Diminished Cardiovascular: Regular rate/rhythm, Normal S1 S2 Gastrointestinal: Normal bowel sounds, No tenderness Musculoskeletal: No tenderness Integumentary: No rashes Neurological: Normal speech, Normal tone, Normal affect Lymphatics: No axilla or inguinal lymphadenopathy - Studies Medications List Reviewed: Yes Assessment And Plan - Current Problems (Diagnosis) (1) Hypotension Current Visit: Yes Status: Acute Plan: THERE IS NO SIGN OF INFECTION. SHE HAS NORMAL PROCALCITONIN, NORMAL WBC COUNT AND NO SYMPTOMS OF ANY INFECTION. I THINKS SHE IS JUST OVERTREATED WITH MEDICINES. ONCE BP COMES UP TO NORMAL, I WILL RESUME SMALLER DOSE OF LASIX AND SPIRONOLACTONE. I WILL STOP ENTRESTO SHE IS NOT ABLE TO TOLERATE. URINE CULTURE WAS NOT SENT FROM ER. UA SHOWS NO MAJOR INFECTION. AMBULATE ON THE FLOOR. MAY GO HOME IN AM. (2) Presence of Watchman left atrial appendage closure device Current Visit: Yes Status: Chronic (3) Atrial fibrillation Current Visit: No Status: Chronic Plan: SHE HAS WATCHMAN AND SHE WILL BE TAKEN OFF ELIQUIS. STABLE WITH GUARDED PROGNOSIS. (4) Diastolic heart failure Current Visit: Yes Status: Acute Plan: DAUGHTER WAS TOLD SHE HAS PNEUMONIA BY ER BUT CT DONE TODAY SHOWS CHRONIC INFLAMMATORY CHANGES WITH NODULES LIKE IN [place]. SHE HAS HAD HISTORY OF CHF D IAGNOSIS BUT WITH MANY MEDS HER BP DROPPED. I STOPPED ENTRESTO AND REDUCED LASIX AND RUTHY. SHE IS GIVEN ABX SHE HAS YELLOW SPUTUM. UA IS NEGATIVE. ACTH STIM TEST IS NEGATIVE. I WILL FU WITH LOWER DOSE OF MEDS SHE NEEDS. Qualifiers: Heart failure chronicity: chronic Qualified Code(s): I50.32 - Chronic diastolic (congestive) heart failure
[2023-12-30 09:09] VITALS: BP 116/57; TEMP 98.4
[2023-12-30 09:51] VITALS: O2SAT 96
--- NOTE | 2023-12-30 15:03 | P.DS ---
Admission Date: 12/27/23 Discharge Date: 12/30/23 Disposition: DC HOME/HOME HEALTH CARE Discharge Condition: FAIR Reason for Admission: COUGH, BP IS BETTER - Problems (1) Hypotension Status: Acute (2) Presence of Watchman left atrial appendage closure device Status: Chronic (3) Atrial fibrillation Status: Chronic (4) Diastolic heart failure Status: Acute Qualifiers: Heart failure chronicity: chronic Qualified Code(s): I50.32 - Chronic diastolic (congestive) heart failure Brief History of Present Illness: Juliana Saenz is 83 years old lady with mild chf with normal EF done in August. She comes with weakness and low BP. She required Levophed to help BP and IV fluids. She has no signs of infection. No burning at urination, cough, fever etc. She is given many meds for CHF by dye house wheel operator. Hospital Course: JULIANA IS DOING LOT BETTER. BP IS STABLE. SHE HAS ANTIBIOTIC ORAL. I SUSEPECT SHE HAD LOW BP BECAUSE OF MEDICINES AND NOT INFECTION OR ZARA'S. I REDUCED HER DOSE OF MEDS. I STOPPED ENTRESTO. HER EF IS NORMAL AND DYSPNEA IS MORE FROM [place] WITH FIBROSIS THAN CHF. SHE IS STABLE TO GO HOME. DISCUSSED WITH DAUGHTER. Vital Signs/Physical Exam: Temp Pulse Resp BP Pulse Ox 98.4 F 87 16 116/57 L 95 12/30/23 08:00 12/30/23 08:00 12/30/23 08:00 12/30/23 08:00 12/30/23 08:00 Laboratory Data at Discharge: WBC 4.90 thou/uL (4.3-10.9) 12/28/23 04:59 Hgb 9.3 g/dL (12.0-15.0) L D 12/28/23 04:59 Hct 28.6 % (36.0-45.0) L 12/28/23 04:59 Plt Count 152 thou/uL (152-406) D 12/28/23 04:59 PT 12.2 SECONDS (9.4-12.5) 12/27/23 18:41 INR 1.11 12/27/23 18:41 APTT 29.9 SECONDS (24.3-36.9) 12/27/23 18:41 Sodium 135 mEq/L (136-145) L 12/28/23 04:59 Potassium 4.1 mEq/L (3.5-5.1) 12/28/23 04:59 BUN 16 mg/dL (7-18) 12/28/23 04:59 Creatinine 1.03 mg/dL (0.55-1.02) H 12/28/23 04:59 Glucose 248 mg/dL (74-106) H 12/28/23 04:59 Total Bilirubin 0.5 mg/dL (0.2-1.0) 12/28/23 04:59 AST 11 U/L (15-37) L 12/28/23 04:59 ALT 15 U/L (13-56) 12/28/23 04:59 Alkaline Phosphatase 66 U/L (45-117) D 12/28/23 04:59 Home Medications: Apixaban [Eliquis *] 2.5 mg PO BID 12/27/23 Atorvastatin Calcium [Lipitor*] 20 mg PO BEDTIME 12/27/23 Budesonide [Pulmicort] 1 puff IH BID 12/27/23 Bupropion HCl [Wellbutrin Sr] 100 mg PO DAILY 12/27/23 Docusate Sodium 100 mg PO DAILY 12/27/23 Donepezil HCl [Aricept] 10 mg PO DAILY 12/27/23 Duloxetine HCl [Cymbalta] 30 mg PO DAILY 12/27/23 Fluticasone/Umeclidin/Vilanter [Trelegy Ellipta 100-62.5-25] 1 each IH DAILY 12/27/23 Linaclotide [Linzess] 145 mcg PO DAILY 12/27/23 Metformin HCl [Glucophage*] 500 mg PO BIDWM 12/27/23 Omeprazole [Prilosec] 40 mg PO DAILY 12/27/23 Sotalol HCl [Betapace*] 80 mg PO BID 12/27/23 Spironolactone [Aldactone*] 25 mg PO DAILY 12/27/23 Trazodone HCl [Desyrel] 100 mg PO BEDTIME 12/27/23 Amox/Clavulanate [Augmentin 500-125 mg Tab*] 500 mg PO BID #10 tab 12/30/23 Benzonatate [Tessalon Perle*] 100 mg PO Q6H PRN #50 cap 12/30/23 New Medications: Amox/Clavulanate [Augmentin 500-125 mg Tab*] 500 mg PO BID #10 tab Benzonatate [Tessalon Perle*] 100 mg PO Q6H PRN #50 cap PRN Reason: Cough Physician Discharge Instructions: Home health services to resume with: Meeta Del Rio ([facility]) P:[phone] F:[phone] Followup: Wally Mejia MD [Primary Care Provider] -
--- NOTE | 2023-12-30 16:07 | EKG ---
Test Date: 2023-12-29 Test Time: 08:20:07 Solar Designer/Installer: RNNT MEASUREMENT RESULTS: Intervals: Rate: 70 ND: 80 QRSD: 102 QT: 412 QTc: 444 [place]: P: ND: 80 QRS: -26 T: -67 INTERPRETIVE STATEMENTS: Electronic atrial pacemaker Minimal voltage criteria for LVH, may be normal variant Septal infarct, age undetermined Marked ST abnormality, possible inferior subendocardial injury Abnormal ECG Compared to ECG 12/27/2023 18:40:01 Left ventricular hypertrophy now present Myocardial infarct finding now present ST (T wave) deviation now present Ventricular-paced complex(es) or rhythm no longer present Electronically Signed On 12-30-23 16:06:39 CDT by Anderson Spaulding
== END 2023-12-30 12:47 | disposition home health service (06) | DRG 312 ==
LOC: ER 17:53 → 3RD-ICU 21:03 → 2ND 12-29 16:45
PROVIDERS: ADMIT Internal Medicine; ATTEND Internal Medicine
PROC: 3E033XZ Introduction of Vasopressor into Peripheral Vein, Percutaneous Approach (ICD-10-PCS; principal; 2023-12-28)
DX: I95.2 Hypotension due to drugs (principal); I50.32 Chronic diastolic (congestive) heart failure; I48.20 Chronic atrial fibrillation, unspecified; K21.9 Gastro-esophageal reflux disease without esophagitis; J44.9 Chronic obstructive pulmonary disease, unspecified; F03.90 Unspecified dementia, unspecified severity, without behavioral disturbance, psychotic disturbance, mood disturbance, and anxiety; T50.995A Adverse effect of other drugs, medicaments and biological substances, initial encounter; Z66 Do not resuscitate; Z86.73 Personal history of transient ischemic attack (TIA), and cerebral infarction without residual deficits; Z79.01 Long term (current) use of anticoagulants; Z79.899 Other long term (current) drug therapy; Z95.818 Presence of other cardiac implants and grafts
CPT/HCPCS: 36415; 71045; 71260; 80053; 81001; 81003; 82024; 82533; 83605; 83880; 84484; 85025; 85610; 85730; 87040; 93005; 94640; 97116; 97161; 99285; J0696; J0834; J1650; J7030; J7040; J7050; J7634; J7644; Q9967

== ENCOUNTER 2024-02-28 14:00 | Inpatient (IN) | payer BC ==
--- NOTE | 2024-02-28 15:01 | RAD REPORT ---
EXAM DESCRIPTION: RAD - Chest Single View - 02/28/2024 2:52 pm CLINICAL HISTORY: DYSPNEA COMPARISON: Chest Pa And Lat (2 Views) dated 01/13/2024; Chest Single View dated 01/08/2024; Chest Sin gle View dated 12/27/2023; Chest Single View dated 10/24/2023 FINDINGS: Lines: Pacemaker. Lungs: Increased prominence of the pulmonary interstitium. Thickening of the right minor fissure. Pleural: Small bilateral effusions. Cardiac: Cardiomegaly . Mediastinum: Within normal limits. Bones: No acute fractures. Other: None IMPRESSION: Findings most likely representing pulmonary edema. Coexisting pneumonia difficult to exc lude radiographically.
[2024-02-28 15:29] LABS: Absolute Eosinophils 0.1 K/uL (0-0.5); Absolute Lymphocytes (CBC) 0.8 K/uL (0.7-4.9); Absolute Monocytes 0.6 K/uL (0.1-1.3); Absolute Neutrophil 5.1 K/uL (1.8-8.0); Basophils % 0.6 % (0-1.3); Eosinophils % 1.7 % (0-4.4); Hematocrit 34.1 % (36.0-45.0); Hemoglobin 10.1 g/dL (12.0-15.0); Lymphocytes % 11.7 % (15.3-44.8); MCHC 29.6 g/dL (32.0-36.0); MCV 97.9 fL (80-100); MPV 8.2 fL (7.6-11.3); Monocytes % 8.7 % (3.3-12.3); Neutrophils % 77.3 % (41.7-73.7); Platelets 244 thou/uL (152-406); RBC Red Blood Cell Count 3.48 M/uL (3.86-4.86); Red Cell Distribution Width 21.7 % (12.1-15.2)
[2024-02-28 15:38] LABS: PT Prothrombin Time 13.8 SECONDS (9.4-12.5); PTT, Activated Partial Thromb 30.4 SECONDS (24.3-36.9); Protime INR 1.24
[2024-02-28] MEDS ORDERED: IPRATROPIUM BROM 0.5MG/2.5ML ONE (15:43)
[2024-02-28] MEDS ORDERED: ALBUTEROL 2.5 MG/3 ML NEB SOL ONE (15:43)
[2024-02-28 15:48] LABS: Albumin 3.3 g/dL (3.4-5.0); Albumin/Globulin Ratio 0.9 (1.1-1.8); Anion Gap 8.6 mEq/L (5.0-15.0); Bilirubin Direct 0.2 mg/dL (0-0.2); Bilirubin Indirect, Calculated 0.6 mg/dL (0.2-0.8); Bilirubin Total 0.8 mg/dL (0.2-1.0); Globulin 3.5 g/dL (2.3-3.5); Protein, Total 6.8 g/dL (6.4-8.2); Troponin High Sensitivity 81.1 pg/mL (<58.9)
[2024-02-28 15:53] LABS: Magnesium 1.4 mg/dL (1.6-2.4); Potassium 4.6 mEq/L (3.5-5.1)
[2024-02-28 17:03] LABS: Specific Gravity > 1.030 (1.005-1.030); Urine Bacteria <20 /HPF (<20); Urine Bilirubin NEGATIVE (Negative); Urine Blood Negative (Negative); Urine Clarity Extremely Turbid (Clear); Urine Color Yellow (Yellow); Urine Culture Reflex Order NOT NEEDED; Urine Glucose NEGATIVE (Negative); Urine Ketones NEGATIVE (Negative); Urine Micro Reflex YN NO BILL MICROSCOPIC; Urine Mucus Slight /HPF (None Seen); Urine Nitrite NEGATIVE (Negative); Urine Protein 1+ (Negative); Urine RBC None Seen /HPF (None Seen); Urine Urobilinogen Normal (Normal); Urine WBC <5 /HPF (<5)
[2024-02-28] MEDS ORDERED: ONDANSETRON 4 MG/2 ML VIAL ONE (17:25)
--- NOTE | 2024-02-28 17:43 | RAD REPORT ---
EXAM DESCRIPTION: CTChest Abdomen Pelvis W Cont - 02/28/2024 5:15 pm CLINICAL HISTORY: ABD PAIN COMPARISON: Chest Single View dated 02/28/2024; Hip Left 2 View dated 01/08/2024; Head C Spine Cap W C on dated 01/08/2024; Head C Spine Mpr Wo Con dated 08/29/2023 TECHNIQUE: CT of the chest, abdomen, and pelvis was performed with IV contrast. All CT scans are performed using dose optimization technique as appropriate and may include automated exposure control or mA/KV adjustment according to patient size. FINDINGS: Thorax: Chest Wall: Multinodular thyroid without significant interval change compared with 08/29/2023. Left u pper chest wall pacemaker. Lungs: Atelectasis as result of the effusions. Mild consolidation in the dependent portions of the up per lobes bilaterally. Interlobular septal thickening is present. Pleura: Moderate right and small left pleural effusion. Jessica/Mediastinum: No lymphadenopathy. Aorta/Pulmonary Arteries: Unremarkable Heart: Normal size. Atrial appendage occlusion device. Abdomen/Pelvis: Liver: Hepatic steatosis. No focal mass. Biliary: Cholelithiasis. Stomach: No significant focal abnormality. Duodenum: No significant focal abnormality. Pancreas: No significant abnormality. Spleen: No significant abnormality. Adrenal: No suspicious lesions. Kidney/ureter: No hydronephrosis. No renal calculi. Too small to characterize and/or benign appearing renal lesions are noted. Right renal scarring. Retroperitoneum: No retroperitoneal adenopathy. Vascular: No aneurysm. IVC filter. Bowel: Mild diffuse colonic wall thickening.. Peritoneum: No ascites or free air. Bladder: Grossly unremarkable. Reproductive: No adnexal masses. Bones: Subacute left pelvic fractures. Remote T12 compression fracture. Similar bony retropulsion. Other: n/a IMPRESSION: 1. Pulmonary edema with small to moderate right and small left pleural effusion. Small a reas of consolidation in the right upper and left upper lobe could represent coexisting pneumonia. 2. Nonspecific rectal wall thickening which could reflect either a nonspecific colitis or sequela of fluid overload. 3. Subacute pelvic fractures with similar alignment.
[2024-02-28 17:51] LABS: Platelet Estimate ADEQ; White Blood Cell Scan OK (OK)
[2024-02-28 17:52] LABS: Anisocytosis 1+; Blood Morphology Comment NOTED (NOT SEEN); Hypochromasia 1+
[2024-02-28] MEDS ORDERED: Levofloxacin 750mg IV 750 MG/150 ML BAG IV ONE (17:52)
[2024-02-28] MEDS ORDERED: FUROSEMIDE 40 MG/4 ML VIAL ONE (17:52)
--- NOTE | 2024-02-28 17:59 | EDPHYS ---
Physician Documentation [facility] Name: Kori Saenz Age: 84 yrs Sex: Female : 1940 Arrival Date: 02/28/2024 Time: 14:00 Bed 16 Private MD: ED Physician Freddy Jurado HPI: 02/27 15:35 This 84 yrs old Female presents to ER via Ambulatory with complaints of Bloody Stools, rt General Weakness. 16:05 Patient presents to the ED with 2 days of a generalized weakness. The patient states rt that she is straining to have bowel movements, states that she has blood mixed in her stool, denies other acute complaints at this time, symptoms are moderate in severity, no other aggravating or elevating factors.. Historical: - Allergies: 14:29 No Known Allergies; db - PMHx: 14:29 Anemia; CHF; Chronic obstructive lung disease; COPD; CVA; Dementia; Diverticulitis; db GERD; Home O2 via NC at 2 L; insomnia; Migraines; Pacemaker; a-fib; - Immunization history:: Adult Immunizations unknown. - Infectious Disease History:: Denies. - Social history:: Smoking status: Patient denies any tobacco usage or history of. - Family history:: not pertinent. ROS: 16:05 Constitutional: Negative for fever, chills, and weight loss, Cardiovascular: Negative rt for chest pain, palpitations, and edema, Respiratory: Negative for shortness of breath, cough, wheezing, and pleuritic chest pain, MS/Extremity: Negative for injury and deformity, Skin: Negative for injury, rash, and discoloration, Psych: Negative for depression, anxiety, suicide ideation, homicidal ideation, and hallucinations, 16:05 Abdomen/GI: Positive for constipation, rectal bleeding, 16:05 Neuro: Positive for weakness, Negative for loss of consciousness, Exam: 16:05 Constitutional: This is a well developed, well nourished patient who is awake, alert, rt and in no acute distress. Head/Face: Normocephalic, atraumatic. Chest/axilla: Normal chest wall appearance and motion. Nontender with no deformity. No lesions are appreciated. Cardiovascular: Regular rate and rhythm with a normal S1 and S2. No gallops, murmurs, or rubs. Normal PMI, no JVD. No pulse deficits. Respiratory: Lungs have equal breath sounds bilaterally, clear to auscultation and percussion. No rales, rhonchi or wheezes noted. No increased work of breathing, no retractions or nasal flaring. Abdomen/GI: Soft, non-tender, with normal bowel sounds. No distension or tympany. No guarding or rebound. No evidence of tenderness throughout. Skin: Warm, dry with normal turgor. Normal color with no rashes, no lesions, and no evidence of cellulitis. MS/ Extremity: Pulses equal, no cyanosis. Neurovascular intact. Full, normal range of motion. Neuro: Awake and alert, GCS 15, oriented to person, place, time, and situation. Cranial nerves II-XII grossly intact. Motor strength 5/5 in all extremities. Sensory grossly intact. Cerebellar exam normal. Normal gait. 16:05 ECG was reviewed by the Attending Physician. Vital Signs: 14:20 BP 138 / 70; Pulse 111; Resp 22; Temp 98.1(O); Pulse Ox 79% on R/A; Weight 68.04 kg; db 15:54 BP 143 / 93; Pulse 82; Resp 22; Pulse Ox 98% on 3 lpm NC; Pain 0/10; tm6 17:05 BP 137 / 78; Pulse 92; Pulse Ox 97% on 3 lpm NC; tm6 19:40 BP 140 / 84; Pulse 82; Resp 25; Temp 98.1; Pulse Ox 98% on 3 lpm NC; Pain 0/10; tm6 15:54 Pain Scale: Adult tm6 19:40 Pain Scale: Adult tm6 14:20 PLACED ON 2L NC O2. ON HOME O2 db MDM: 14:19 Patient medically screened. rt 18:50 Data reviewed: vital signs, nurses notes. Consideration of Admission/Observation rt Patient was admitted/placed on observation. Management of patient was discussed with the following: Primary Care Provider: Agrees to admit. I considered the following discharge prescriptions or medication management in the emergency department Medications were administered in the Emergency Department. See MAR. Independent interpretation of the following test(s) in the Emergency Department CT Scan: My interpretation is Pulmonary edema seen on interpretation of CT scan of the. Care significantly affected by the following chronic conditions: Congestive Heart Failure, Chronic Obstructive Pulmonary Disease. Post IV fluid administration reassessment for Sepsis: Client not prescribed the 30 mL/kg IVF due to: concern for fluid overload. concern related to heart failure. Sepsis focused reassessment complete. Heart: Regular rate/rhythm. Lungs: Crackles noted. Cardio: Cardiovascular exam improved from previous exam. Heart rate and blood pressure have improved. Respiratory: Respiratory exam improved from previous exam. Counseling: I had a detailed discussion with the patient and/or guardian regarding the historical points, exam findings, and any diagnostic results supporting the discharge/admit diagnosis, lab results, radiology results, the need for further work-up and treatment in the hospital. Response to treatment: the patient's symptoms have markedly improved after treatment. ED course: With the patient's primary respiratory issue is CHF exacerbation as compared to pneumonia. Possible pneumonia only seen on CT scan. I clinically believe that patient is volume overloaded and any crystalloid administration will likely harm the patient. Will continue with diuresis, antibiotics. Her lactate is downtrending.. 02/27 14:32 Order name: Basic Metabolic Panel; Complete Time: 15:59 rt 02/27 14:32 Order name: CBC with Diff; Complete Time: 17:59 rt 02/27 14:32 Order name: LFT's; Complete Time: 15:59 rt 02/27 14:32 Order name: Magnesium; Complete Time: 15:59 rt 02/27 14:32 Order name: NT PRO-BNP; Complete Time: 15:59 rt 02/27 14:32 Order name: Troponin HS; Complete Time: 15:59 rt 02/27 14:32 Order name: UAM; Complete Time: 17:43 rt 02/27 14:32 Order name: Type And Screen; Complete Time: 18:09 rt 02/27 14:32 Order name: Lactate w/ 2H reflex if indic.; Complete Time: 15:52 rt 02/27 14:32 Order name: Blood Culture Adult (2) rt 02/27 14:32 Order name: Protime (+inr); Complete Time: 15:52 rt 02/27 14:32 Order name: Ptt, Activated; Complete Time: 15:52 rt 02/27 16:07 Order name: CBC Smear Scan; Complete Time: 17:59 EDMS 02/27 16:11 Order name: Antibody Identification; Complete Time: 18:09 EDMS 02/27 16:34 Order name: ABO/RH no charge; Complete Time: 17:43 EDMS 02/27 17:52 Order name: Ghost Lactate-NO COLLECT Timer; Complete Time: 17:59 EDMS 02/27 18:00 Order name: Antigen type; Complete Time: 18:09 EDMS 02/27 18:38 Order name: Lactate Sepsis 2 HR Follow-up; Complete Time: 18:40 EDMS 02/27 14:32 Order name: XRAY Chest (1 view); Complete Time: 15:52 rt 02/27 16:27 Order name: Chest Abdomen Pelvis W Cont; Complete Time: 17:43 EDMS 02/27 14:32 Order name: EKG; Complete Time: 14:32 rt 02/27 14:32 Order name: Cardiac monitoring; Complete Time: 15:14 rt 02/27 14:32 Order name: EKG - Nurse/Tech; Complete Time: 15:55 rt 02/27 14:32 Order name: IV Saline Lock; Complete Time: 15:59 rt 02/27 14:32 Order name: Labs collected and sent; Complete Time: 15:14 rt 02/27 14:32 Order name: O2 Per Protocol; Complete Time: 14:44 rt 02/27 14:32 Order name: O2 Sat Monitoring; Complete Time: 14:44 rt 02/27 14:32 Order name: Straight Cath; Complete Time: 17:04 rt 02/27 14:32 Order name: IV Saline Lock - Large Bore; Complete Time: 15:59 rt 02/27 14:32 Order name: Vital Signs; Complete Time: 15:59 rt EC:05 Rate is 86 beats/min. Rhythm is regular, Paced with No ectopy, Nonspecific ST and T rt wave changes. QRS Harrison is Normal. QRS interval is normal. QT interval is normal. No Q waves. Administered Medications: 15:59 Drug: DuoNeb Nebulize (3:1) (2.5 mg - 0.5 mg) 3 ml Nebulizer once Route: Nebulizer; tm6 17:04 Follow up: Response: No adverse reaction tm6 17:32 Drug: Ondansetron IVP 4 mg IVP once; over 2 minutes Route: IVP; Site: left antecubital; tm6 18:02 Follow up: Response: No adverse reaction; Marked relief of symptoms tm6 18:02 Drug: Furosemide IVP 40 mg IVP once; give over 2 minutes Route: IVP; Site: left tm6 antecubital; 18:02 Drug: LevaQUIN IVPB 750 mg IVPB once Route: IVPB; Site: left antecubital; tm6 19:41 Follow up: Response: No adverse reaction; IV Status: Completed infusion; IV Intake: tm6 150ml 19:54 Drug: Magnesium Sulfate IVPB 1 grams IVPB once over 1 hrs Route: IVPB; Infused Over: 1 tm6 hrs; Site: left antecubital; 19:54 Follow up: Response: Medication Administered at Departure tm6 Disposition Summary: 02/28/24 17:58 Hospitalization Ordered Notes: Hospitalization Status: Inpatient Admission rt Provider: Wally Mejia rt Location: Telemetry/MedSurg (Inpatient) rt Condition: Fair rt Problem: new rt Symptoms: have improved rt Bed/Room Type: Standard rt Room Assignment: 214(02/28/24 18:23) bc6 Diagnosis - CHF exacerbation rt - Pneumonia rt - Hypoxia rt - Elevated troponin rt Forms: - Medication Reconciliation Form rt - SBAR form rt - Leadership Thank You Letter rt Critical care time excluding procedures: 18:50 Critical care time: Bedside Care: 30 minutes, Consultation: 5 minutes. Total time: 35 rt minutes Signatures: Dispatcher [employer] Leela Aragon RN RN Freddy Jurado MD MD rt Claire [facility] Chrissy George RN RN 6 Corrections: (The following items were deleted from the chart) 16:27 14:32 Abdomen Pelvis W Con+CT.RAD.BRZ ordered. EDMS EDMS 18:23 17:58 rt 6
--- NOTE | 2024-02-28 17:59 | ER ---
Nurse's Notes [facility] Name: Kori Saenz Age: 84 yrs Sex: Female : 1940 Arrival Date: 02/28/2024 Time: 14:00 Bed 16 Private MD: Diagnosis: CHF exacerbation;Pneumonia;Hypoxia;Elevated troponin Presentation: 02/27 14:20 Chief complaint: Patient states: BLOOD IN STOOLS, AND GENERAL WEAKNESS X 2 DAYS. STATE db ON HOME O2 2L NC. Coronavirus screen: Client denies travel out of the [place] in the last 14 days. At this time, the client does not indicate any symptoms associated with coronavirus-19. Ebola Screen: Patient negative for fever greater than or equal to 101.5 degrees Fahrenheit, and additional compatible Ebola Virus Disease symptoms Patient denies exposure to infectious person. Patient denies travel to an Ebola-affected area in the 21 days before illness onset. No symptoms or risks identified at this time. 14:20 Method Of Arrival: Ambulatory db 14:25 Initial Sepsis Screen: Does the patient meet any 2 criteria? No. Patient's initial db sepsis screen is negative. Does the patient have a suspected source of infection? No. Patient's initial sepsis screen is negative. Risk Assessment: Do you want to hurt yourself or someone else? Patient reports no desire to harm self or others. Onset of symptoms was February 26, 2024. 14:25 Acuity: DARION 3 db Triage Assessment: 14:29 General: Appears in no apparent distress. comfortable, Behavior is calm, cooperative. db Pain: Denies pain. Neuro: Level of Consciousness is awake, alert, obeys commands, Oriented to person, place, time, situation. Respiratory: Airway is patent Respiratory effort is even, unlabored, Respiratory pattern is regular, symmetrical. Derm: Skin is pale. Historical: - Allergies: 14:29 No Known Allergies; db - PMHx: 14:29 Anemia; CHF; Chronic obstructive lung disease; COPD; CVA; Dementia; Diverticulitis; db GERD; Home O2 via NC at 2 L; insomnia; Migraines; Pacemaker; a-fib; - Immunization history:: Adult Immunizations unknown. - Infectious Disease History:: Denies. - Social history:: Smoking status: Patient denies any tobacco usage or history of. - Family history:: not pertinent. Screenin:37 [facility] ED Fall Risk Assessment (Adult) History of falling in the last 3 months, tm6 including since admission No falls in past 3 months (0 pts) Confusion or Disorientation No (0 pts) Intoxicated or Sedated No (0 pts) Impaired Gait No (0 pts) Mobility Assist Device Used No (0 pt) Altered Elimination No (0 pt) Score/Fall Risk Level 0 - 2 = Low Risk Oriented to surroundings, Maintained a safe environment, Educated pt \\T\\ family on fall prevention, incl call for assistance when getting out of bed. Abuse screen: Denies threats or abuse. Denies injuries from another. Nutritional screening: No deficits noted. Tuberculosis screening: No symptoms or risk factors identified. Assessment: 14:17 General: Appears in no apparent distress. Behavior is calm, cooperative. Pain: Denies tm6 pain. Neuro: Level of Consciousness is awake, alert, obeys commands, Oriented to person, place, time, situation. Cardiovascular: No deficits noted. Patient's skin is warm and dry. Respiratory: Airway is patent Respiratory effort is even, labored, Respiratory pattern is regular, symmetrical. GI: Abdomen is flat, non-distended, Abd is soft and non tender X 4 quads. Reports bloody stool. : No signs and/or symptoms were reported regarding the genitourinary system. EENT: No signs and/or symptoms were reported regarding the EENT system. Derm: No signs and/or symptoms reported regarding the dermatologic system. Musculoskeletal: Reports general weakness. 17:06 Reassessment: Patient and/or family updated on plan of care and expected duration. Pain tm6 level reassessed. Patient is alert, oriented x 3, equal unlabored respirations, skin warm/dry/pink. Vital Signs: 14:20 BP 138 / 70; Pulse 111; Resp 22; Temp 98.1(O); Pulse Ox 79% on R/A; Weight 68.04 kg; db 15:54 BP 143 / 93; Pulse 82; Resp 22; Pulse Ox 98% on 3 lpm NC; Pain 0/10; tm6 17:05 BP 137 / 78; Pulse 92; Pulse Ox 97% on 3 lpm NC; tm6 19:40 BP 140 / 84; Pulse 82; Resp 25; Temp 98.1; Pulse Ox 98% on 3 lpm NC; Pain 0/10; tm6 15:54 Pain Scale: Adult tm6 19:40 Pain Scale: Adult tm6 14:20 PLACED ON 2L NC O2. ON HOME O2 db ED Course: 14:05 Patient arrived in ED. ra3 14:07 Freddy Jurado MD is Attending Physician. rt 14:25 Arm band placed on Patient placed in an exam room. db 14:29 Triage completed. db 14:30 Patient has correct armband on for positive identification. Call light in reach. Side tm6 rails up X2. Adult w/ patient. Provided Education on: use of call marrero. Client placed on continuous cardiac and pulse oximetry monitoring. NIBP monitoring applied. bus driver/monitor on. Pulse ox on. NIBP on. Door closed. Noise minimized. Warm blanket given. Pillow given. 14:44 Chrissy George, RN is Primary Nurse. tm6 14:54 XRAY Chest (1 view) In Process Unspecified. EDMS 15:14 1514 CM met with patient and daughter Billie at the bedside in the ED exam room. Patient ane identified by name and . Demographic sheet confirmed. Patient states she lives with her daughter in a converted garage made into a "suite". Prior to admission, Mrs. Saenz was back home after being discharged Wednesday morning from [facility]. Patient was at [facility] for SNF following a fall and hip fx. Billie states DME in the home includes a walker, cane, rollator, oxygen concentrator, and shower seat with junior high math teacher bars. MPOA in place as well. Mrs. Saenz is usually on 2 L at all times. Billie explains that when she picked up Mrs. Saenz she was not feeling well, experiencing increased weakness. She was discharged with through [facility]. 1725 CM left message for Kaylynn, from [facility], awaiting response to confirm services. Billie expressed her concern over Mrs. Saenz' decline in health. Billie states she still works and did not feel like she could leave Mrs. Saenz alone for long. She has a family friend caregiver for a few hours a day. Billie states she is considering retirement [facility]. CM provided list of local nursing facilities and recommended visiting several and inquiring about proper process. Private pay caregiver list also provided. Mrs. Saenz wishes to return to her daughter's home upon discharge. Billie states she will have to think about what is best and will make a decision soon. CM team will continue to follow and coordinate care until discharge. 15:14 Basic Metabolic Panel Sent. tm6 15:14 CBC with Diff Sent. tm6 15:14 LFT's Sent. tm6 15:14 Magnesium Sent. tm6 15:14 NT PRO-BNP Sent. tm6 15:14 Troponin HS Sent. tm6 15:14 Lactate w/ 2H reflex if indic. Sent. tm6 15:14 Type And Screen Sent. tm6 15:14 Blood Culture Adult (2) Sent. tm6 15:14 Protime (+inr) Sent. tm6 15:14 Ptt, Activated Sent. tm6 15:14 Missed attempt(s): 20 gauge in right antecubital area. Bleeding controlled, band aid tm6 applied, catheter tip intact. 15:54 EKG done, by ED staff, reviewed by Freddy Jurado MD. tm6 15:59 Inserted saline lock: 20 gauge in left antecubital area, using aseptic technique. zm Flushed with 10 mL NS. 17:17 Chest Abdomen Pelvis W Cont In Process Unspecified. EDMS 17:52 Received confirmation from Kaylynn, from [facility]. Mrs Doss is current [facility] ane patient. 17:58 Wally Mejia MD is Hospitalizing Provider. rt 18:12 1812 Billie and Mrs Doss requested a wheelchair. CM reached out to Dr. Mejia to request ane approval, awaiting response. 18:[address] Mejia. 1844 CM requested wheelchair via [place], ane pending approval from Medicare. 20:02 No provider procedures requiring assistance completed. Patient admitted, IV remains in tm6 place. Administered Medications: 15:59 Drug: DuoNeb Nebulize (3:1) (2.5 mg - 0.5 mg) 3 ml Nebulizer once Route: Nebulizer; tm6 17:04 Follow up: Response: No adverse reaction tm6 17:32 Drug: Ondansetron IVP 4 mg IVP once; over 2 minutes Route: IVP; Site: left antecubital; tm6 18:02 Follow up: Response: No adverse reaction; Marked relief of symptoms tm6 18:02 Drug: Furosemide IVP 40 mg IVP once; give over 2 minutes Route: IVP; Site: left tm6 antecubital; 18:02 Drug: LevaQUIN IVPB 750 mg IVPB once Route: IVPB; Site: left antecubital; tm6 19:41 Follow up: Response: No adverse reaction; IV Status: Completed infusion; IV Intake: tm6 150ml 19:54 Drug: Magnesium Sulfate IVPB 1 grams IVPB once over 1 hrs Route: IVPB; Infused Over: 1 tm6 hrs; Site: left antecubital; 19:54 Follow up: Response: Medication Administered at Departure tm6 Medication: 15:37 VIS not applicable for this client. tm6 Intake: 19:41 IV: 150ml; Total: 150ml. tm6 Output: 19:40 Urine: 900ml (Voided); Total: 900ml. tm6 Outcome: 17:58 Decision to Hospitalize by Provider. rt 20:02 Admitted to Med/surg accompanied by tech, via stretcher, room 214, with oxygen, with tm6 chart, 20:02 Condition: stable 20:02 Instructed on the need for admit, 20:02 Patient left the ED. tm6 Signatures: Dispatcher [employer] EDClotilde Mendoza Danielle, RN RN db Freddy Jurado MD MD rt Chrissy George RN RN tm6 Valeria Blackmon ra3 Lianna Lock RN RN fly Corrections: (The following items were deleted from the chart) 17:57 15:14 1514 CM met with patient and daughter Billie at the bedside in the ED exam room. ane Patient identified by name and . Demographic sheet confirmed. Patient states she lives with her daughter in a converted garage made into a "suite". Prior to admission, Mrs. Saenz was back home after being discharged Wednesday morning from [facility]. Patient was at [facility] for SNF following a fall and hip fx. Billie states DME in the home includes a walker, cane, rollator, oxygen concentrator, and shower seat with junior high math teacher bars. MPOA in place as well. Mrs. Saenz is usually on 2 L at all times. Billie explains that when she picked up Mrs. Saenz she was not feeling well, experiencing increased weakness. She was discharged with through [facility]. CM left message for Kaylynn, from [facility], awaiting response to confirm services. Billie expressed her concern over Mrs. Saenz' decline in health. Billie states she still works and did not feel like she could leave Mrs. Saenz alone for long. She has a family friend caregiver for a few hours a day. Billie states she is considering retirement [facility]. CM provided list of local nursing facilities and recommended visiting several and inquiring about proper process. Private pay caregiver list also provided. Mrs. Saenz wishes to return to her daughter's home upon discharge. Billie states she will have to think about what is best and will make a decision soon. CM team will continue to follow and coordinate care until discharge. ane
[2024-02-28] MEDS ORDERED: MAGNESIUM SULFATE 1 gm IVPB 1 GM/100 ML BAG IV ONE (19:24)
[2024-02-28] MEDS ORDERED: ONDANSETRON 4 MG/2 ML VIAL IV PRN (20:44)
[2024-02-28 21:05] VITALS: BMI 27.2
[2024-02-28] MEDS: FUROSEMIDE 40 MG/4 ML VIAL IV SCH (21:08)
[2024-02-28 22:48] LABS: Specific Gravity 1.008 (1.005-1.030); Urine Bilirubin NEGATIVE (Negative); Urine Blood Negative (Negative); Urine Clarity Clear (Clear); Urine Color Colorless (Yellow); Urine Glucose NEGATIVE (Negative); Urine Ketones NEGATIVE (Negative); Urine Microscopic Reflex YN NO UMIC; Urine Nitrite NEGATIVE (Negative); Urine Protein NEGATIVE (Negative); Urine Urobilinogen Normal (Normal)
[2024-02-29 06:21] LABS: Absolute Eosinophils 0.1 K/uL (0-0.5); Absolute Lymphocytes (CBC) 1.1 K/uL (0.7-4.9); Absolute Monocytes 0.6 K/uL (0.1-1.3); Absolute Neutrophil 2.6 K/uL (1.8-8.0); Basophils % 0.5 % (0-1.3); Hematocrit 31.2 % (36.0-45.0); Hemoglobin 9.4 g/dL (12.0-15.0); MCH 28.8 pg (27.0-35.0); MCHC 30.2 g/dL (32.0-36.0); MCV 95.4 fL (80-100); MPV 7.8 fL (7.6-11.3); Monocytes % 13.6 % (3.3-12.3); Neutrophils % 58.9 % (41.7-73.7); Platelets 203 thou/uL (152-406); RBC Red Blood Cell Count 3.27 M/uL (3.86-4.86); Red Cell Distribution Width 21.1 % (12.1-15.2)
[2024-02-29 06:42] LABS: Anion Gap 6.8 mEq/L (5.0-15.0); Potassium 3.8 mEq/L (3.5-5.1)
[2024-02-29] MEDS: FUROSEMIDE 20 MG/ 2ML VIAL IV SCH ×2 (08:23→20:50)
[2024-02-29] MEDS ORDERED: levoFLOXacin 500 MG TAB PO SCH (09:00)
--- NOTE | 2024-02-29 12:38 | EKG ---
Test Date: 2024-02-28 Test Time: 15:49:59 Yield Engineer: EMMETT MEASUREMENT RESULTS: Intervals: Rate: 86 WI: QRSD: 116 QT: 324 QTc: 387 [place]: P: WI: QRS: 42 T: 250 INTERPRETIVE STATEMENTS: Demand pacemaker, interpretation is based on intrinsic rhythm Atrial fibrillation with premature ventricular or aberrantly conducted complexes Septal infarct, age undetermined Marked ST abnormality, possible inferior subendocardial injury Marked ST abnormality, possible anterior subendocardial injury Abnormal ECG Compared to ECG 01/17/2024 11:38:21 Ventricular premature complex(es) now present Myocardial infarct finding now present ST (T wave) deviation now present Atrial-paced complex(es) or rhythm no longer present Electronically Signed On 02-29-24 12:36:20 CDT by Anderson Spaulding
--- NOTE | 2024-02-29 13:11 | P.HP ---
Patient History Date of Service: 02/29/24 Reason for admission: DYSPNEA History of Present Illness: JULIANA HAS HAD RECURRENT ADMISSIONS FOR DYSPNEA AND ALSO LOW BP RELATED TO DIURETICS. SHE DID WELL FOR A WHILE. SHE CAME BACK AGAIN WITH DYSPNEA. NO CHEST PAIN. NO FATIGUE. SHE HAS BEEN TO [facility] UNTIL WEDNESDAY AND DAUGHTER BROUGHT HER BACK TO [facility]. SHE SHOULD BE IN [place] BUT SHE CAN'T STAY FOR LONG. Dyspnea [R06.00] 2023 Hypoxemia [R09.02] 2023 COPD (chronic obstructive pulmonary disease) [J44.9 0.3] 2023 A-fib [I48.91 0.3] WATCH MAN DONE. WATCH MAN DONE. 2023 Diastolic dysfunction with acute on chronic heart failure [I50.33 0.4] EF 50% AUGUST 2023 EF 50% AUGUST 20232023 Enlarged LA (left atrium) [I51.7] 2023 Presence of Watchman left atrial appendage closure device [Z95.818] REVIEWED [facility] RECORDS REVIEWED [facility] RECORDS 2023 Normochromic normocytic anemia [D64.9] 2023 Bilateral pleural effusion [J90] 2023 Tricuspid regurgitation [I07.1] 2023 Atrial enlargement, bilateral [I51.7] 2023 Hypomagnesemia [E83.42] 2023 Hypotension [I95.9] dehydration dehydration 2023 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] Last addressed: Never 2023 Pelvic fracture [S32.9XXA 0.5] Last addressed: Never 2023 Frequent falls [R29.6] Allergies No Known Allergies Allergy (Unverified 09/02/23 19:26) Home medications list reviewed: Yes Home Medications: Apixaban [Eliquis *] 2.5 mg PO BID 12/27/23 Atorvastatin Calcium [Lipitor*] 20 mg PO BEDTIME 12/27/23 Budesonide [Pulmicort] 1 puff IH BID 12/27/23 Bupropion HCl [Wellbutrin Sr] 100 mg PO DAILY 12/27/23 Docusate Sodium 100 mg PO DAILY 12/27/23 Donepezil HCl [Aricept] 10 mg PO DAILY 12/27/23 Duloxetine HCl [Cymbalta] 30 mg PO DAILY 12/27/23 Fluticasone/Umeclidin/Vilanter [Trelegy Ellipta 100-62.5-25] 1 each IH DAILY 12/27/23 Linaclotide [Linzess] 145 mcg PO DAILY 12/27/23 Metformin HCl [Glucophage*] 500 mg PO BIDWM 12/27/23 Omeprazole [Prilosec] 40 mg PO DAILY 12/27/23 Spironolactone [Aldactone*] 25 mg PO DAILY 12/27/23 Trazodone HCl [Desyrel] 100 mg PO BEDTIME 12/27/23 Benzonatate [Tessalon Perle*] 100 mg PO Q6H PRN #50 cap 12/30/23 Amiodarone HCl [Cordarone*] 200 mg PO BID tab 01/19/24 Apixaban [Eliquis *] 2.5 mg PO BID 01/19/24 Furosemide [Lasix*] 20 mg PO DAILY tab 01/19/24 Acetaminophen [Tylenol] 2 tab PO Q4HR PRN 02/29/24 Aspirin [Aspirin EC 81 MG] 81 mg PO DAILY 02/29/24 Digoxin 125 mcg PO DAILY 02/29/24 Gabapentin 300 mg PO TID 02/29/24 Hydrocodone 5/APAP 325 [[place] 5/325] 1 tab PO Q6H PRN 02/29/24 Melatonin 3 mg PO BEDTIME PRN 02/29/24 Metoprolol Succinate 50 mg PO DAILY 02/29/24 Metoprolol Succinate 50 mg PO DAILY 02/29/24 Midodrine HCl 10 mg PO TID 02/29/24 Ondansetron [Zofran] 4 mg PO Q8HR PRN 02/29/24 Sennosides [Senna] 8.6 mg PO DAILY 02/29/24 - Past Medical/Surgical History Has patient received pneumonia vaccine in the past: Yes Diabetic: No -: Afib -: COPD -: Diverticulitis -: GERD -: migraines -: CVA -: Pacer -: Watchman - Family History Mother -: Hypertension Brother -: Hypertension, Cancer Sister -: Hypertension, Cancer Father -: Cancer - Social History Smoking Status: Never smoker Alcohol use: No CD- Drugs: No Caffeine use: Yes Place of Residence: Home Review of Systems 10-point ROS is otherwise unremarkable General: As per HPI Physical Examination - Vital Signs Temperature: 97.7 F Blood Pressure: 108/51 Pulse: 112 Respirations: 12 Pulse Ox (%): 100 - Physical Exam General: Oriented x3, Mild distress HEENT: Atraumatic, PERRLA, Mucous membr. moist/pink, EOMI, Sclerae nonicteric Neck: Supple, 2+ carotid pulse no bruit, No LAD, Without JVD or thyroid abnormality Respiratory: Diminished Cardiovascular: Regular rate/rhythm, Normal S1 S2 Gastrointestinal: Normal bowel sounds, No tenderness Musculoskeletal: No tenderness Integumentary: No rashes Neurological: Normal gait, Normal speech, Normal strength at 5/5 x4 extr, Normal tone, Normal affect Lymphatics: No axilla or inguinal lymphadenopathy - Studies Laboratory Data (last 24 hrs) 02/28/24 02/28/24 02/28/24 15:06 15:06 15:06 WBC 6.60 Hgb 10.1 L Hct 34.1 L Plt Count 244 PT 13.8 H INR 1.24 APTT 30.4 Sodium 140 Potassium 4.6 BUN 12 Creatinine 0.90 Glucose 108 H Magnesium 1.4 L Total Bilirubin 0.8 AST 22 ALT 19 Alkaline Phosphatase 77 Assessment and Plan - Problems (Diagnosis) (1) Acute on chronic diastolic heart failure Current Visit: No Status: Acute Plan: RECURRENT. SHE WILL BE BACK ON DIURETICS. SHE IN THE PAST HAS NOT TOLERATED MEDS AND BP HAS DROPPED. PER DAUGHTER THE ST TEST IN [facility] WAS GOOD. ECHO SHOWS EF OF 50% HERE. 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 I ADVISED LIFETIME NH FOR HER BUT DAUGHTER HAS MADE SOME ARRANGEMENT AT HOME. - Advance Directives Does patient have a Living Will: No Does patient have a Durable POA for Healthcare: No
[2024-02-29] MEDS: ENOXAPARIN 30 MG/0.3 ML SQ SCH (16:03)
[2024-02-29] MEDS ORDERED: MELATONIN 3 MG TABLET PO PRN (17:43)
[2024-02-29] MEDS ORDERED: ACETAMINOPHEN 325 MG TABLET PO PRN (17:43)
[2024-02-29] MEDS ORDERED: HYDROCODONE/APAP 5/325 MG TAB PO PRN (17:43)
[2024-02-29 18:26] LABS: SARS-CoV-2 Antigen CONTROL BLUE LINE VIS/BG OK; SARS-CoV-2 Antigen Rapid Res Negative (Negative)
[2024-02-29] MEDS: TRAZODONE 50 MG TABLET PO SCH (20:49)
[2024-02-29] MEDS: GABAPENTIN 300 MG CAP PO SCH (20:49)
[2024-02-29] MEDS: ATORVASTATIN 20 MG TAB PO SCH (20:50)
[2024-02-29] MEDS: DOCUSATE NA 100 MG CAP PO SCH (20:51)
[2024-02-29] MEDS ORDERED: HOME MED 1 EA UNK (Trazodone Hcl [Desyrel] 100 MG Tablet) PO SCH (21:00)
[2024-03-01] MEDS: DULOXETINE 30 MG CAP PO SCH (09:00)
[2024-03-01] MEDS ORDERED: HOME MED 1 EA UNK (Linaclotide [Linzess] 145 MCG Capsule) PO SCH (09:00)
[2024-03-01] MEDS: FLUTICASONE IH SCH (09:00)
[2024-03-01] MEDS: VILANTER IH SCH (09:00)
[2024-03-01] MEDS: LINACLOTIDE 145 MCG PO SCH (09:00)
[2024-03-01] MEDS: UMECLIDIN IH SCH (09:00)
[2024-03-01] MEDS: BUPROPION HCL 100 MG PO SCH (09:00)
[2024-03-01] MEDS: DIGOXIN 0.125 MG TABLET PO SCH (09:00)
[2024-03-01] MEDS: ASPIRIN EC 81 MG TAB PO SCH (09:00)
[2024-03-01] MEDS: SOTALOL HCL 80 MG TAB PO ONE (12:07)
--- NOTE | 2024-03-01 13:01 | P.CNS ---
Date of Consult: 03/01/24 Chief Complaint: DYSPNEA History of Present Illness: Patient with PMH of atrial fibrillation, chronic diastolic heart failure presented with worsening YIN and palpitations, denies chest pain, no syncope. Allergies No Known Allergies Allergy (Unverified 09/02/23 19:26) Home medications list reviewed: Yes Home Medications: RX: Atorvastatin Calcium [Lipitor*] 20 mg PO BEDTIME 12/27/23 RX: Bupropion HCl [Wellbutrin Sr] 100 mg PO DAILY 12/27/23 RX: Docusate Sodium 100 mg PO BID 12/27/23 RX: Donepezil HCl [Aricept] 10 mg PO DAILY 12/27/23 RX: Duloxetine HCl [Cymbalta] 30 mg PO DAILY 12/27/23 RX: Fluticasone/Umeclidin/Vilanter [Trelegy Ellipta 100-62.5-25] 1 each IH DAILY 12/27/23 RX: Linaclotide [Linzess] 145 mcg PO DAILY 12/27/23 RX: Metformin HCl [Glucophage*] 500 mg PO BIDWM 12/27/23 RX: Omeprazole [Prilosec] 40 mg PO DAILY 12/27/23 RX: Trazodone HCl [Desyrel] 100 mg PO BEDTIME 12/27/23 Acetaminophen [Tylenol] 2 tab PO Q4HR PRN 02/29/24 Albuterol Inhaler [Ventolin Inhaler*] 2 puff PO Q12HR PRN 02/29/24 Aspirin [Aspirin EC 81 MG] 81 mg PO DAILY 02/29/24 Hydrocodone 5/APAP 325 [[place] 5/325] 1 tab PO Q6H PRN 02/29/24 Ondansetron [Zofran] 4 mg PO Q8HR PRN 02/29/24 RX: Atorvastatin Calcium 20 mg PO BEDTIME 02/29/24 RX: Digoxin 125 mcg PO DAILY 02/29/24 RX: Gabapentin 300 mg PO TID 02/29/24 RX: Melatonin 3 mg PO BEDTIME PRN 02/29/24 RX: Metformin HCl 1 tab PO BID 02/29/24 RX: Metoprolol Succinate 50 mg PO DAILY 02/29/24 RX: Metoprolol Succinate 50 mg PO DAILY 02/29/24 RX: Midodrine HCl 10 mg PO TID 02/29/24 Sennosides [Senna] 8.6 mg PO DAILY 02/29/24 - Past Medical/Surgical History Diabetic: No -: Afib -: COPD -: Diverticulitis -: GERD -: migraines -: CVA -: Pacer -: Watchman - Family History Mother Medical History: Hypertension Brother Medical History: Hypertension, Cancer Sister Medical History: Hypertension, Cancer Father Medical History: Cancer - Social History Smoking Status: Former smoker Alcohol use: No CD- Drugs: No Caffeine use: Yes Place of Residence: Home Review of Systems 10-point ROS is otherwise unremarkable Physical Examination Temp Pulse Resp BP Pulse Ox 96.8 F 116 H 16 108/60 96 03/01/24 08:00 03/01/24 09:00 03/01/24 08:00 03/01/24 09:00 03/01/24 08:00 General: Alert, In no apparent distress HEENT: Atraumatic, PERRLA, Mucous membr. moist/pink, EOMI, Sclerae nonicteric Neck: Supple, 2+ carotid pulse no bruit, No LAD, Without JVD or thyroid abnormality Respiratory: Clear to auscultation bilaterally, Normal air movement Cardiovascular: Irregular heart rate/rhythm Gastrointestinal: Normal bowel sounds, No tenderness Musculoskeletal: No tenderness Integumentary: No rashes Neurological: Normal gait, Normal speech, Normal tone, Normal affect Lymphatics: No axilla or inguinal lymphadenopathy - Problems (1) Acute on chronic diastolic heart failure Current Visit: No Status: Acute Plan: increase Lasix to 20 mg IV BID Continue to monitor input and output Continue to monitor and correct electrolytes (2) Atrial fibrillation Current Visit: No Status: Chronic Plan: s/p watchamn s/p recent RAEGAN DCCV on 12/2023 was discharged on amiodarone 200 mg BID but not on her medications list RAEGAN/Echo, severe dilated LA load with Amiodarone 300 mg IV x1 then continue drip NPO after midnight for possible repeated DCCV.
[2024-03-01] MEDS: AMIODARONE HCL 300 MG in D5W 100 ML IV SCH (13:03)
[2024-03-01] MEDS: AMIODARONE HCL 900 MG in Dextrose 5%-Water 482 ML IV SCH (13:03)
--- NOTE | 2024-03-01 13:04 | P.PN ---
Subjective Date of Service: 03/01/24 Chief Complaint: DYSPNEA Subjective: Improving SHE HAS A FIB TODAY. STARTED SOTALOL. DR. ROMERO CHANGED TO AMIO DRIP. SHE HAD CHANGES OF MEDS IN [place] WHEN I WAS NOT HER DOCTOR. SHE WAS ON SOTALOL 40 BID BEFORE ANDDID WELL. WHEN SHE CAME OUT SHE WAS NOT ON THE MEDICINE. SHE IS WEAK, FATIGUED. Review of Systems 10-point ROS is otherwise unremarkable General: Weakness Physical Examination - Vital Signs Temperature: 96.8 F Blood Pressure: 108/60 Pulse: 116 Respirations: 16 Pulse Ox (%): 96 - Physical Exam General: Oriented x3, Mild distress HEENT: Atraumatic, PERRLA, EOMI Neck: Supple, JVD not distended Respiratory: Clear to auscultation bilaterally, Normal air movement Cardiovascular: Abnormal S1 S2 Gastrointestinal: Normal bowel sounds, No tenderness Musculoskeletal: No tenderness Integumentary: No rashes Neurological: Normal speech, Normal tone, Normal affect Lymphatics: No axilla or inguinal lymphadenopathy - Studies Medications List Reviewed: Yes Assessment And Plan - Current Problems (Diagnosis) (1) Acute on chronic diastolic heart failure Current Visit: No Status: Acute Plan: RECURRENT. SHE WILL BE BACK ON DIURETICS. SHE IN THE PAST HAS NOT TOLERATED MEDS AND BP HAS DROPPED. PER DAUGHTER THE ST TEST IN [facility] WAS GOOD. ECHO SHOWS EF OF 50% HERE. (2) Atrial fibrillation Current Visit: No Status: Chronic Plan: AMIO IV DRIP STOP SOTALOL CONT ELIQUIS. (3) Presence of Watchman left atrial appendage closure device Current Visit: No Status: Chronic (4) KADIE (mycobacterium avium-intracellulare) Current Visit: Yes Status: Chronic Plan: I TALKED TO PATIENT'S DAUGHTER AND EXPLAINED THAT PATIENTS WITH KADIE WILL BE DEBILITATED AND THE MEDS DON'T WORK AND ALSO MOST PATIENTS DON'T TOLERATE THEM. I ADVISED LIFETIME NH FOR HER BUT DAUGHTER HAS MADE SOME ARRANGEMENT AT HOME.
[2024-03-01] MEDS: FUROSEMIDE 20 MG/ 2ML VIAL IV SCH (16:08)
[2024-03-01] MEDS: METFORMIN HCL 500 MG TAB PO SCH (16:08)
[2024-03-01] MEDS: levoFLOXacin 750 MG TAB PO SCH (17:01)
[2024-03-01] MEDS ORDERED: SOTALOL HCL 80 MG TAB PO SCH (18:00)
[2024-03-01] MEDS: APIXABAN 5 MG TABLET PO SCH (20:12)
[2024-03-01] MEDS: DONEPEZIL HCL 5 MG TAB PO SCH (20:12)
[2024-03-01] MEDS: ATORVASTATIN 20 MG TAB PO SCH (20:14)
--- NOTE | 2024-03-02 09:54 | P.PN ---
Subjective Date of Service: 03/02/24 Chief Complaint: DYSPNEA Subjective: No new changes, No C/O voiced, Tolerating diet, Ambulating, Improving Review of Systems 10-point ROS is otherwise unremarkable Physical Examination - Vital Signs Temperature: 98.6 F Blood Pressure: 103/59 Pulse: 103 Respirations: 22 Pulse Ox (%): 95 - Physical Exam General: Alert, In no apparent distress HEENT: Atraumatic, PERRLA, EOMI Neck: Supple, JVD not distended Respiratory: Clear to auscultation bilaterally, Normal air movement Cardiovascular: Irregular heart rate/rhythm Gastrointestinal: Normal bowel sounds, No tenderness Musculoskeletal: No tenderness Integumentary: No rashes Neurological: Normal speech, Normal tone, Normal affect Lymphatics: No axilla or inguinal lymphadenopathy - Studies Medications List Reviewed: Yes Assessment And Plan - Current Problems (Diagnosis) (1) Acute on chronic diastolic heart failure Current Visit: No Status: Acute Plan: recommend to continue diuresis Continue to monitor input and output Continue to monitor and correct electrolytes (2) Atrial fibrillation Current Visit: No Status: Chronic Plan: s/p watchamn s/p recent RAEGAN DCCV on 12/2023 was discharged on amiodarone 200 mg BID but not on her medications list RAEGAN/Echo, severe dilated LA load with Amiodarone 300 mg IV x1 then continue drip Plan for repeated DCCV.
[2024-03-02] MEDS ORDERED: NA CHLORIDE 0.9% 250 ML ONE (15:44)
[2024-03-02] MEDS ORDERED: LIDOCAINE 1% MPF 5 ML VIAL ONE (15:59)
[2024-03-02] MEDS ORDERED: propofoL 200 MG/20 ML VIAL IV ONE (15:59)
[2024-03-02] MEDS: AMIODARONE HCL 200 MG TAB PO SCH (16:30)
[2024-03-02 17:04] VITALS: O2SAT 99
--- NOTE | 2024-03-02 17:48 | OP ---
Date of Procedure: 03/02/2024 Surgeon: Anderson Spaulding Procedure Performed: Synchronized cardioversion. Indication For Procedure: Atrial fibrillation. Complications: None. Estimated Blood Loss: None. Sedation: Done by Anesthesia team. Description Of Procedure: After risks, and benefits, and alternatives were explained to patient, feliz guevara agreed to proceed with the procedure and signed informed consent. Patient was brought back to [facility] OR, prepped and draped and was stable. Time-out was performed. Sedation was administered by Bradley thejesusitaa team. Synchronized cardioversion was done with 200 joules. The patient tolerated the procedu re well, was converted back into sinus rhythm and patient was moved back to recovery in stable condit ion. Assessment And Plan: Successful synchronized cardioversion for atrial fibrillation. Plan will be to continue Eliquis 5 b.i.d. for 1 month as patient is status post Watchman, but she had a recent cardi oversion just now. Continue amiodarone 200 mg p.o. b.i.d. EMILY Voice ID: [id number] Report ID: [id number]
[2024-03-02] MEDS: POLYETHYL GLY 3350 17 GM/DOSE PO ONE (17:52)
--- NOTE | 2024-03-02 22:09 | P.PN ---
Subjective Date of Service: 03/02/24 Chief Complaint: DYSPNEA Subjective: Improving SHE HAS A FIB TODAY. STARTED SOTALOL. DR. ROMERO CHANGED TO AMIO DRIP. SHE HAD CHANGES OF MEDS [place] WHEN I WAS NOT HER DOCTOR. SHE WAS ON SOTALOL 40 BID BEFORE ANDDID WELL. WHEN SHE CAME OUT SHE WAS NOT ON THE MEDICINE. SHE IS WEAK, FATIGUED. GEN WEAK, AFIB NOW BACK TO [facility] NEEDS TO AMBULATE Review of Systems 10-point ROS is otherwise unremarkable Physical Examination - Vital Signs Temperature: 97.7 F Blood Pressure: 105/51 Pulse: 75 Respirations: 18 Pulse Ox (%): 100 - Physical Exam General: Oriented x3, Mild distress HEENT: Atraumatic, PERRLA, EOMI Neck: Supple, JVD not distended Respiratory: Clear to auscultation bilaterally, Normal air movement Cardiovascular: Regular rate/rhythm, Normal S1 S2 Gastrointestinal: Normal bowel sounds, No tenderness Musculoskeletal: No tenderness Integumentary: No rashes Neurological: Normal speech, Normal tone, Normal affect Lymphatics: No axilla or inguinal lymphadenopathy - Studies Medications List Reviewed: Yes Assessment And Plan - Current Problems (Diagnosis) (1) Acute on chronic diastolic heart failure Current Visit: No Status: Acute Plan: RECURRENT. SHE WILL BE BACK ON DIURETICS. SHE IN THE PAST HAS NOT TOLERATED MEDS AND BP HAS DROPPED. PER DAUGHTER THE ST TEST IN [facility] WAS GOOD. ECHO SHOWS EF OF 50% HERE. (2) Atrial fibrillation Current Visit: No Status: Chronic Plan: AMIO IV DRIP STOP SOTALOL CONT ELIQUIS. AMIOCHANGED TO PO STABLE MAY GO HOME IN AM. (3) Presence of Watchman left atrial appendage closure device Current Visit: No Status: Chronic (4) KADIE (mycobacterium avium-intracellulare) Current Visit: Yes Status: Chronic Plan: I TALKED TO PATIENT'S DAUGHTER AND EXPLAINED THAT PATIENTS WITH KADIE WILL BE DEBILITATED AND THE MEDS DON'T WORK AND ALSO MOST PATIENTS DON'T TOLERATE THEM. I ADVISED LIFETIME NH FOR HER BUT DAUGHTER HAS MADE SOME ARRANGEMENT AT HOME.
[2024-03-03 09:03] VITALS: BP 107/51; TEMP 98.7
--- NOTE | 2024-03-03 14:07 | EKG ---
Test Date: 2024-03-02 Test Time: 15:41:20 Accounting Administrator: GOMEZ MEASUREMENT RESULTS: Intervals: Rate: 92 IA: QRSD: 128 QT: 394 QTc: 487 [place]: P: IA: QRS: 15 T: 217 INTERPRETIVE STATEMENTS: Demand pacemaker, interpretation is based on intrinsic rhythm Atrial fibrillation with premature ventricular or aberrantly conducted complexes Nonspecific intraventricular block T wave abnormality, consider inferior ischemia or digitalis effect T wave abnormality, consider anterior ischemia or digitalis effect Abnormal ECG Compared to ECG 02/28/2024 15:49:59 T-wave abnormality now present Possible ischemia now present Myocardial infarct finding no longer present ST (T wave) deviation no longer present Electronically Signed On 03-03-24 14:06:09 CDT by Nahum Loera
--- NOTE | 2024-03-03 16:40 | P.DS ---
Admission Date: 02/28/24 Discharge Date: 03/03/24 Disposition: ROUTINE DISCHARGE Discharge Condition: GOOD Reason for Admission: DYSPNEA - Problems (1) Acute on chronic diastolic heart failure Status: Acute (2) Atrial fibrillation Status: Chronic (3) Presence of Watchman left atrial appendage closure device Status: Chronic (4) KADIE (mycobacterium avium-intracellulare) Status: Chronic Brief History of Present Illness: JULIANA HAS HAD RECURRENT ADMISSIONS FOR DYSPNEA AND ALSO LOW BP RELATED TO DIURETICS. SHE DID WELL FOR A WHILE. SHE CAME BACK AGAIN WITH DYSPNEA. NO CHEST PAIN. NO FATIGUE. SHE HAS BEEN TO [employer] [facility] UNTIL WEDNESDAY AND DAUGHTER Tomi ROUGHT HER BACK TO [facility]. SHE SHOULD BE IN [place] BUT SHE CAN'T STAY FOR LONG. Dyspnea [R06.00] 2023 Hypoxemia [R09.02] 2023 COPD (chronic obstructive pulmonary disease) [J44.9 0.3] 2023 A-fib [I48.91 0.3] WATCH MAN DONE. WATCH MAN DONE. 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 SHE WAS ON SOTALOL 40 BID AND DID WELL BUT [place] SOMEHOW STOPPED IT. SHE IS BACK WITH A FIB AND RVR AND EARLY CHF. SHE HAD ONE EPISODE OF FEVER, NEG COVID AND QUESTIONABLE PNEUMONIA. SHE HAS HISTORY OF KADIE. SHE DID WELL WITH AMIO DRIP. SHE HAS HAD WATCHMAN PROCEDURE DONE ALREADY. SHE DOES NOT NEED ANTICOAGUALATION. SHE IS ON AMIODARONE AT [place] HOME TODAY. DAUGHTER HAS HIRED PEOPLE TO TAKE CARE OF HER. I PUT HER ON SMALL DOSE OF DIURETIC SPIRONOLACTONE HER BP TENDS TO DROP LOWER THAN NORMAL. Vital Signs/Physical Exam: Temp Pulse Resp BP Pulse Ox 98.7 F 79 18 107/51 L 95 03/03/24 08:00 03/03/24 08:00 03/03/24 08:00 03/03/24 08:00 03/03/24 08:00 Laboratory Data at Discharge: WBC 4.40 thou/uL (4.3-10.9) 02/29/24 06:11 Hgb 9.4 g/dL (12.0-15.0) L 02/29/24 06:11 Hct 31.2 % (36.0-45.0) L 02/29/24 06:11 Plt Count 203 thou/uL (152-406) 02/29/24 06:11 PT 13.8 SECONDS (9.4-12.5) H 02/28/24 15:06 INR 1.24 02/28/24 15:06 APTT 30.4 SECONDS (24.3-36.9) 02/28/24 15:06 Sodium 140 mEq/L (136-145) 02/29/24 06:11 Potassium 3.8 mEq/L (3.5-5.1) D 02/29/24 06:11 BUN 9 mg/dL (7-18) 02/29/24 06:11 Creatinine 0.77 mg/dL (0.55-1.02) 02/29/24 06:11 Glucose 94 mg/dL (74-106) 02/29/24 06:11 Magnesium 1.4 mg/dL (1.6-2.4) L 02/28/24 15:06 Total Bilirubin 0.8 mg/dL (0.2-1.0) 02/28/24 15:06 AST 22 U/L (15-37) 02/28/24 15:06 ALT 19 U/L (13-56) 02/28/24 15:06 Alkaline Phosphatase 77 U/L (45-117) 02/28/24 15:06 Home Medications: Atorvastatin Calcium [Lipitor*] 20 mg PO BEDTIME 12/27/23 Bupropion HCl [Wellbutrin Sr] 100 mg PO DAILY 12/27/23 Docusate Sodium 100 mg PO BID 12/27/23 Donepezil HCl [Aricept] 10 mg PO DAILY 12/27/23 Duloxetine HCl [Cymbalta] 30 mg PO DAILY 12/27/23 Fluticasone/Umeclidin/Vilanter [Trelegy Ellipta 100-62.5-25] 1 each IH DAILY 12/27/23 Linaclotide [Linzess] 145 mcg PO DAILY 12/27/23 Metformin HCl [Glucophage*] 500 mg PO BIDWM 12/27/23 Omeprazole [Prilosec] 40 mg PO DAILY 12/27/23 Trazodone HCl [Desyrel] 100 mg PO BEDTIME 12/27/23 Acetaminophen [Tylenol] 2 tab PO Q4HR PRN 02/29/24 Albuterol Inhaler [Ventolin Inhaler*] 2 puff PO Q12HR PRN 02/29/24 Aspirin [Aspirin EC 81 MG] 81 mg PO DAILY 02/29/24 Atorvastatin Calcium 20 mg PO BEDTIME 02/29/24 Digoxin 125 mcg PO DAILY 02/29/24 Gabapentin 300 mg PO TID 02/29/24 Hydrocodone 5/APAP 325 [[place] 5/325*] 1 tab PO Q6H PRN 02/29/24 Melatonin 3 mg PO BEDTIME PRN 02/29/24 Metformin HCl 1 tab PO BID 02/29/24 Metoprolol Succinate 50 mg PO DAILY 02/29/24 Metoprolol Succinate 50 mg PO DAILY 02/29/24 Amiodarone HCl [Cordarone*] 200 mg PO BID #60 tab 03/03/24 Amoxicillin/Potassium Clav [Amox Tr-K Clv 875-125 mg Tab] 1 each PO BID #14 tab 03/03/24 Spironolactone 50 mg PO DAILY #90 tab 03/03/24 New Medications: Amoxicillin/Potassium Clav [Amox Tr-K Clv 875-125 mg Tab] 1 each PO BID #14 tab Amiodarone HCl [Cordarone*] 200 mg PO BID #60 tab Spironolactone 50 mg PO DAILY #90 tab Followup: Wally Mejia MD [Primary Care Provider] -
--- NOTE | 2024-03-06 17:11 | EKG ---
Test Date: 2024-03-02 Test Time: 16:37:34 Passenger Service Agent: GOMEZ MEASUREMENT RESULTS: Intervals: Rate: 70 MD: 200 QRSD: 130 QT: 410 QTc: 442 [place]: P: 57 MD: 200 QRS: 190 T: -9 INTERPRETIVE STATEMENTS: Electronic atrial pacemaker Nonspecific intraventricular block Cannot rule out Septal infarct, age undetermined Lateral infarct, age undetermined Abnormal ECG Compared to ECG 03/02/2024 15:41:20 Myocardial infarct finding now present Ventricular-paced complex(es) or rhythm no longer present Atrial fibrillation no longer present Ventricular premature complex(es) no longer present T-wave abnormality no longer present Possible ischemia no longer present Electronically Signed On 03-06-24 17:01:58 CDT by Nahum Loera
== END 2024-03-03 10:55 | disposition home health service (06) | DRG 291 ==
LOC: ER 14:00 → ERHOLD 18:12 → 2ND 19:14
PROVIDERS: ADMIT Internal Medicine; ATTEND Internal Medicine
PROC: 5A2204Z Restoration of Cardiac Rhythm, Single (ICD-10-PCS; principal; 2024-03-02)
DX: I11.0 Hypertensive heart disease with heart failure (principal); I50.33 Acute on chronic diastolic (congestive) heart failure; J18.9 Pneumonia, unspecified organism; J44.0 Chronic obstructive pulmonary disease with (acute) lower respiratory infection; I48.20 Chronic atrial fibrillation, unspecified; A31.0 Pulmonary mycobacterial infection; K21.9 Gastro-esophageal reflux disease without esophagitis; F03.90 Unspecified dementia, unspecified severity, without behavioral disturbance, psychotic disturbance, mood disturbance, and anxiety; R79.89 Other specified abnormal findings of blood chemistry; Z95.0 Presence of cardiac pacemaker; Z79.82 Long term (current) use of aspirin; Z99.81 Dependence on supplemental oxygen; Z11.52 Encounter for screening for COVID-19; Z79.01 Long term (current) use of anticoagulants; Z79.84 Long term (current) use of oral hypoglycemic drugs; Z86.73 Personal history of transient ischemic attack (TIA), and cerebral infarction without residual deficits; Z79.899 Other long term (current) drug therapy; Z87.891 Personal history of nicotine dependence
CPT/HCPCS: 36415; 80048; 83605; 84145; 84484; 85025; 87811; 92960; 93005; 96365; 96366; 96375; 97116; 97161; 97530; 97760; 99285; J0282; J1650; J1940; J2001; J2704; J7050; J7060